=== PATIENT | female | born 1945 | race Caucasian/White ===

== ENCOUNTER 2017-02-12 16:29 | Inpatient (IN) | payer MEDICARE ==
[2017-02-12 16:58] LABS: #Basophils 0.1 thou/uL (0.0-0.2); #Eosinphils 0.2 thou/uL (0.0-0.7); #Monocytes 0.7 thou/uL (0.11-0.59); #Neutrophils 7.8 thou/uL (1.40-6.50); %Basophils 0.5 % (0.0-1.0); %Eosinophils 1.6 % (0.0-10.0); %Lymphocytes 25.6 % (21.0-51.0); %Monocytes 5.9 % (0.0-10.0); Hematocrit 41.5 % (36.0-47.0); Mean Platelet Volume 7.4 fL (7.4-10.4); Red Blood Cell (RBC) Count 4.32 mill/uL (4.20-5.40); White Blood Cell (WBC) Count 11.7 thou/uL (4.8-10.8)
--- NOTE | 2017-02-12 17:02 | RAD ---
SINGLE VIEW OF CHEST: Date: 02/12/17 COMPARISON: 10/29/16. HISTORY: Cardiac palpitations and chest pain. FINDINGS: Single view of the chest shows a normal sized cardiomediastinal silhouette. There is no evidence of consolidation, mass, or pleural effusion. The bones are unremarkable. IMPRESSION: No evidence of acute cardiopulmonary disease. POS: [facility]
[2017-02-12 17:19] LABS: ALT (SGPT) 8 U/L (8-55); AST (SGOT) 11 U/L (5-34); Alkaline Phosphatase 113 U/L (40-150); Anion Gap 12 mmol/L (10-20); BUN (Urea Nitrogen) 13 mg/dL (9.8-20.1); Bilirubin, Total Less than 0.2 mg/dL (0.2-1.2); CK (CPK) 21 U/L (29-168); Calc. Creatinine Clearance 0 mL/min (70-130); Calcium 9.4 mg/dL (7.8-10.44); Carbon Dioxide 29 mmol/L (23-31); Chloride 98 mmol/L (98-107); Estimated GFR-MDRD 64; Globulin 3.3 g/dL (2.4-3.5); Lipase 21 U/L (8-78); Protein, Total 6.8 g/dL (6.0-8.3)
[2017-02-12 18:15] LABS: Troponin I 0.017 ng/mL (< 0.028)
[2017-02-12] MEDS ORDERED: Metoprolol Tartrate 5 MG/5 ML VIAL ONE ×2 (18:29)
[2017-02-12 18:35] LABS: Digoxin Less than 0.15 ng/mL (0.8-2.0)
[2017-02-12] MEDS ORDERED: cefTRIAXone\\ROCEPHIN 1 GM VIAL ONE (20:10)
[2017-02-12] MEDS ORDERED: Digoxin 0.25 MG TAB ONE (20:10)
[2017-02-12 21:25] LABS: Troponin I 0.049 ng/mL (< 0.028)
[2017-02-12 22:03] LABS: Glucose, Urine (Dipstick) 500 mg/dL (Negative); Nitrite Negative (Negative); Protein, Urine (Dipstick) Negative (Neg-Trace)
[2017-02-12 22:04] LABS: Bilirubin Negative (Negative); Blood, Urine Negative (Negative); Ketone, Urine Negative (Negative); Urobilinogen 0.2 mg/dL (0.2-1.0)
[2017-02-12] MEDS ORDERED: Diltiazem HCl 125 MG, Admixture Fee 1 EACH in Sodium Chloride 0.9% 100 ML SLOW IVP PRN (22:25)
[2017-02-13] MEDS ORDERED: Naloxone HCl 0.4 mg/ml Vial IVP PRN ×2 (00:14)
[2017-02-13] MEDS ORDERED: diphenhydrAMINE HCl 50 MG/ML 1 ML VIAL IVP PRN (00:14)
[2017-02-13] MEDS ORDERED: Promethazine HCl 25 MG/ML VIAL IM PRN (00:14)
[2017-02-13] MEDS ORDERED: Lactated Ringer's 500 ML IV PRN (00:14)
[2017-02-13] MEDS ORDERED: ePHEDrine/0.9% NaCl/PF SYRINGE 50 mg/10 ml SLOW IVP PRN (00:14)
[2017-02-13] MEDS ORDERED: Acetaminophen 325 MG TAB PO PRN (00:14)
[2017-02-13] MEDS ORDERED: Ondansetron HCl/PF 4 MG/2 ML Vial IVP PRN ×2 (00:14→01:13)
[2017-02-13] MEDS ORDERED: Eucerin (Mineral Oil/Petrolatum,White) 30 gm Jar TOP PRN ×2 (00:14→01:16)
[2017-02-13] MEDS ORDERED: Communication Order-Pharmacy FS SCH (00:15)
[2017-02-13] MEDS ORDERED: Fentanyl 4mcg/Marcaine 0.1% Cassette 100 ML EPIDURAL SCH (00:15)
[2017-02-13 00:33] VITALS: BMI 32.9
[2017-02-13] MEDS ORDERED: Senokot 8.6 MG TAB PO PRN (01:13)
[2017-02-13] MEDS ORDERED: Milk Of Magnesia 30 ML UDCUP PO PRN (01:13)
[2017-02-13] MEDS ORDERED: Nitroglycerin 0.4 MG TAB (25 Tab Bottle) PO PRN (01:13)
[2017-02-13] MEDS ORDERED: Ondansetron ODT 4 MG TAB PO PRN (01:13)
[2017-02-13] MEDS ORDERED: Carvedilol 6.25 MG TAB PO SCH (01:15)
[2017-02-13] MEDS ORDERED: Labetalol HCl 100 MG/20 ML VIAL SLOW IVP PRN (01:16)
[2017-02-13] MEDS ORDERED: Polyethylene Glycol 3350 17 GM Packet PO PRN (01:16)
[2017-02-13] MEDS ORDERED: Cepastat Lozenges 1 LOZ PO PRN (01:16)
[2017-02-13] MEDS ORDERED: Diabetic Tussin 200 MG/10 ML UDCUP PO PRN (01:16)
[2017-02-13] MEDS ORDERED: Loratadine 10 MG TAB PO PRN (01:16)
[2017-02-13] MEDS ORDERED: PROVENTIL INHALER 6.7 G (200 INHALATIONS) INH PRN (01:29)
[2017-02-13 01:45] LABS: Troponin I 0.068 ng/mL (< 0.028)
--- NOTE | 2017-02-13 02:11 | HP ---
DATE OF ADMISSION: 02/12/2017 Please note the patient was seen and examined on 02/12/2017. CODE STATUS: FULL CODE. SURROGATE DECISION-MAKER: Patient makes her own decisions with the help of her family. CHIEF COMPLAINT: Chest discomfort and palpitations that started this afternoon. HISTORY OF PRESENT ILLNESS: The patient is a 71-year-old female with paroxysmal atrial fibrillation , COPD, and chronic respiratory failure on home oxygen, presented to the emergency room with sudden onset of chest discomfort and palpitations that started this afternoon while she was at home. She f elt fine around 10:30 a.m. when she woke up. Later on, she started feeling pounding in her chest al brandon with chest discomfort. For this reason, she called EMS. The chest discomfort was constant with out any radiation. No aggravating or relieving factor reported. Patient is compliant with all of h er medications including Xarelto. She has been on flecainide in the past that was discontinued ese ier this year. Patient had cardiac catheterization last year that showed stable coronary artery disease without any flow limiting lesions. Echocardiogram last year showed normal left ventricular ejection fraction o f 55%-60% with mild mitral regurgitation. PAST MEDICAL HISTORY: 1. Paroxysmal atrial fibrillation on anticoagulation. Patient had an ablation at [place] for atrial fibrillation. 2. Coronary artery disease with last cardiac catheterization in 08/2015. 3. Chronic obstructive pulmonary disease followed by Dr. Moran. 4. Chronic diastolic heart failure. 5. Chronic anticoagulation with Xarelto every morning. 6. Hypertension. 7. Dyslipidemia. 8. History of lung cancer status post left lobectomy. 9. Chronic respiratory failure on home oxygen. 10. Degenerative joint disease. 11. Chronic low back pain. 12. Obesity. 13. Diabetes mellitus, type 2. PAST SURGICAL HISTORY: 1. Left lobectomy for lung cancer. 2. Appendectomy. 3. Cholecystectomy. 4. Hysterectomy. 5. Tonsillectomy. 6. Cardiac catheterization. 7. Ablation for atrial arrhythmia earlier this year. ALLERGIES: Patient denies any drug allergies. HOME MEDICATIONS: Patient does not remember all of her home medications. She, however, took her Co reg as well as Xarelto today morning. She is also on some nebulizer treatments. FAMILY HISTORY: Positive for heart disease. Mother with colon cancer. SOCIAL HISTORY: She currently lives at home. Her recently . She denies any history of tobacco, alcohol, or drug use. She is a former smoker. REVIEW OF SYSTEMS: The following complete review of systems was negative, unless otherwise mentione d in the HPI or below: Constitutional: Weight loss or gain, ability to conduct usual activities. Skin: Rash, itching. Eyes: Double vision, pain. ENT/Mouth: Nose bleeding, neck stiffness, pain, tenderness. Cardiovascular: Palpitations, dyspnea on exertion, orthopnea. Respiratory: Shortness of breath, wheezing, cough, hemoptysis, fever or night sweats. Gastrointestinal: Poor appetite, abdominal pain, heartburn, nausea, vomiting, constipation, or diar bobby. Genitourinary: Urgency, frequency, dysuria, nocturia. Musculoskeletal: Pain, swelling. Neurologic/Psychiatric: Anxiety, depression. Allergy/Immunologic: Skin rash, bleeding tendency. PHYSICAL EXAMINATION: VITAL SIGNS: In the emergency room showed temperature 97.9, respirations of 28, pulse rate of 153, blood pressure of 104/56 with O2 saturation 97% on 2 liters nasal cannula. GENERAL: A 71-year-old female in no apparent distress. HEENT: Head atraumatic, normocephalic, sclerae are anicteric. Moist mucous membranes. No oral les ion. NECK: Supple, no JVD appreciated. No carotid bruit. HEART: S1, S2 present. Regular rate and rhythm. Patient has converted to normal rhythm at this ti me. LUNGS: Clear to auscultation bilaterally. No wheezing, rales or rhonchi. ABDOMEN: Soft, obese, bowel sounds present. EXTREMITIES: No edema or calf tenderness. NEUROLOGIC: Grossly nonfocal, moves all four extremities. PSYCHIATRY: Alert, awake, oriented x3. SKIN: Warm and dry. LYMPH NODES: No palpable lymph nodes in the neck. PERIPHERAL VASCULAR: Radial pulses palpable bilaterally. MUSCULOSKELETAL: No joint swelling or tenderness. LABORATORY FINDINGS: Digoxin less than 0.115. Troponin of 0.049, BUN 13, creatinine 0.87. WBC was 11.7 with hemoglobin 13.4. EVENTS IN THE EMERGENCY ROOM: The patient received 1 gram of IV ceftriaxone, 0.5 mg digoxin, 10 mg IV Lopressor push with 1 liter IV fluids. The Cardizem drip was ordered as well. EKG by my review showed atrial fibrillation with rapid ventricular response. Chest x-ray by my review was negative for infiltrate. IMPRESSION: 1. Atrial fibrillation with rapid ventricular response. The patient has converted to sinus rhythm. We will resume her home medications once confirmed. Cardiology, Dr. Nixon will be consulted to o ptimize her home medications. We will continue anticoagulation with Xarelto every morning. 2. Indeterminate troponins, probably secondary to demand ischemia. We will repeat troponin after 3 hours. 3. Chronic respiratory failure on home oxygen. 4. Chronic obstructive pulmonary disease. We will resume home nebulizer treatments. 5. Hypothyroidism. We will resume levothyroxine once dose confirmed. 6. Hypertension. We will resume home medications once dose confirmed. 7. Chronic diastolic heart failure, appears to be compensated. 8. Dyslipidemia. 9. Obesity with a BMI at 32.9. 10. History of paroxysmal atrial fibrillation on anticoagulation. 11. History of lung cancer, status post lobectomy. 12. Coronary artery disease with last cardiac catheterization in 08/2015. 13. Chronic kidney disease stage 2. 14. Diabetes mellitus type 2. We will start her on insulin sliding scale. DISPOSITION: Probably in 1-2 days based on Cardiology input. Plan of care was discussed with the patient. She stated understanding.
[2017-02-13 02:43] LABS: Magnesium 2.4 mg/dL (1.6-2.6)
[2017-02-13] MEDS: Levothyroxine Sodium 25 MCG TAB PO SCH (05:13)
[2017-02-13] MEDS: Carvedilol 6.25 MG TAB PO SCH ×2 (08:47→17:10)
[2017-02-13] MEDS: Famotidine 20 MG TAB PO SCH ×2 (08:47→21:06)
[2017-02-13] MEDS: Lisinopril 20 MG TAB PO SCH ×2 (08:47→21:06)
[2017-02-13] MEDS: Cyclobenzaprine 10 MG TAB PO SCH ×2 (08:48→21:04)
[2017-02-13] MEDS: sulfaSALAzine 500 MG TAB PO SCH ×2 (08:48→21:06)
[2017-02-13] MEDS: Furosemide 80 MG TAB PO SCH ×2 (08:50→14:41)
[2017-02-13] MEDS: Docusate 100 MG CAP PO SCH ×2 (08:50→21:06)
[2017-02-13] MEDS: Rivaroxaban 10 MG TAB PO SCH (08:50)
[2017-02-13] MEDS ORDERED: BUDESONIDE INH SCH (09:00)
[2017-02-13] MEDS: Primidone 250 MG TAB PO SCH ×3 (10:14→21:04)
--- NOTE | 2017-02-13 12:48 | PDOC.PN ---
- Subjective Encounter Start Date: 02/13/17 Encounter Start Time: 12:47 Patient seen and examined. No new complaints. No overnight events - Objective Resuscitation Status: Resuscitation Status FULL:Full Resuscitation MAR Reviewed: Yes Vital Signs & Weight: Vital Signs (12 hours) Temp Pulse Resp BP BP Pulse Ox 02/13/17 10:35 64 16 98 02/13/17 08:47 147/67 H 02/13/17 08:30 98.3 F 63 18 147/67 H 97 02/13/17 06:46 98 02/13/17 06:44 68 16 98 02/13/17 04:00 98.2 F 66 18 135/60 99 02/13/17 02:03 143/62 H Weight Weight 186 lb Result Diagrams: 02/12/17 16:48 02/12/17 16:48 Additional Labs: Accuchecks 02/13/17 02/13/17 11:36 05:38 POC Glucose 269 H 156 H Phys Exam - Physical Examination Constitutional: NAD HEENT: PERRLA Neck: no JVD Respiratory: no rales Cardiovascular: RRR, no significant murmur Gastrointestinal: non-tender Musculoskeletal: pulses present Neurological: normal sensation Psychiatric: A&O x 3 Dx/Plan (1) Atrial fibrillation with RVR Code(s): I48.91 - UNSPECIFIED ATRIAL FIBRILLATION Status: Acute Comment: converted to NSR (2) NSTEMI (non-ST elevated myocardial infarction) Code(s): I21.4 - NON-ST ELEVATION (NSTEMI) MYOCARDIAL INFARCTION Status: Acute Comment: demand ischemia (3) COPD (chronic obstructive pulmonary disease) Status: Chronic (4) Chronic diastolic (congestive) heart failure Code(s): I50.32 - CHRONIC DIASTOLIC (CONGESTIVE) HEART FAILURE Status: Chronic (5) Chronic respiratory failure with hypoxia Code(s): J96.11 - CHRONIC RESPIRATORY FAILURE WITH HYPOXIA Status: Chronic (6) Coronary artery disease Code(s): I25.10 - ATHSCL HEART DISEASE OF [place] CORONARY ARTERY W/O ANG PCTRS Status: Chronic (7) Diabetes type 2, controlled Code(s): E11.9 - TYPE 2 DIABETES MELLITUS WITHOUT COMPLICATIONS Status: Chronic (8) Dyslipidemia Code(s): E78.5 - HYPERLIPIDEMIA, UNSPECIFIED Status: Chronic (9) H/O: lung cancer Code(s): Z85.118 - PERSONAL HISTORY OF MALIGNANT NEOPLASM OF BRONCHUS AND LUNG Status: Chronic Comment: S/P left lobectomy (10) Hypertension Code(s): I10 - ESSENTIAL (PRIMARY) HYPERTENSION Status: Chronic (11) Hypothyroidism Code(s): E03.9 - HYPOTHYROIDISM, UNSPECIFIED Status: Chronic (12) Obesity (BMI 30-39.9) Code(s): E66.9 - OBESITY, UNSPECIFIED Status: Chronic - Plan * .doing better * f/u echo * f/u card plan
--- NOTE | 2017-02-13 13:49 | CON ---
DATE OF CONSULTATION: 02/13/2017 REASON FOR CONSULTATION: Recurrent atrial fibrillation and wide complex tachycardia. HISTORY OF PRESENT ILLNESS: Ms. Radha Salinas is a delightful 71-year-old woman. She has a hi story of diastolic heart failure, COPD and atrial arrhythmias. Earlier this year, she underwent atr ial fibrillation ablation in [place]. She did quite well following that. Previously, she is unable to tolerate flecainide as it cause fluid retention and Multaq had proved to be inadequate. She had been doing well up until yesterday. She has felt her heart racing, called an ambulance and she is back in atrial fibrillation. The patient is resting comfortably now. MEDICATIONS: She is very uncertain about her medicines, will need to go to the office and check sin ce she does not recall them. She does take Xarelto, but is unclear about the other medicines. PAST SURGICAL HISTORY: 1. History of lobectomy for lung cancer. 2. Appendectomy. 3. Cholecystectomy. 4. Previous atrial fibrillation ablation. PAST MEDICAL HISTORY: 1. Atrial fibrillation, paroxysmal. 2. Coronary artery disease mild, nonobstructive. 3. COPD. 4. Diastolic heart failure. 5. Hypertension. 6. Dyslipidemia. REVIEW OF SYSTEMS: Constitutional: No significant weight gain or loss. Vision: No changes. Hear ing: No changes. Pulmonary: No cough or wheezing. She is chronically short of breath, but there has been no change. Cardiac: Positive for palpitations and rapid heart rate. Gastrointestinal: N o nausea, vomiting, diarrhea. Skin: No rashes. Neurologic: No unilateral weakness or numbness. Psychiatric: No unusual depression or anxiety. SOCIAL HISTORY: Lives at home, unfortunately recently . No recent tobacco or al cohol. PHYSICAL EXAMINATION: GENERAL: This is a pleasant elderly woman resting comfortably now. VITAL SIGNS: Blood pressure 147/67, pulse 63, sinus now on the monitor. EYES: Sclerae nonicteric. MOUTH: Mucous membranes moist. NECK: Supple, no lymphadenopathy. LUNGS: Clear, no wheezing, rales or rhonchi. CARDIOVASCULAR: Normal S1, normal S2. There is no murmur, rub or gallop. ABDOMEN: Soft, nontender, no hepatosplenomegaly. EXTREMITIES: Warm, dry, no clubbing or cyanosis. There is 1+ edema. SKIN: Warm and dry. Most recent ejection fraction 55-60%. LABORATORY AND X-RAY FINDINGS: Troponin levels 0.068. ASSESSMENT: 1. Recurrent atrial arrhythmias, atrial fibrillation. 2. She also has a wide complex tachycardia, difficult to tell whether it is atrial flutter with vicente rrancy versus V-tach. I think it is probably atrial arrhythmia with aberrancy. PLAN: 1. We will repeat echocardiogram. 2. Consult electrophysiology. 3. We will clarify home medicines.
[2017-02-13] MEDS: Mometasone Furoate 120 PUFF 220 MCG INH SCH (19:52)
[2017-02-13] MEDS: Acetaminophen 325 MG TAB PO PRN (21:06)
[2017-02-14] MEDS: Levothyroxine Sodium 25 MCG TAB PO SCH (05:25)
[2017-02-14 06:58] LABS: #Basophils 0.1 thou/uL (0.0-0.2); #Eosinphils 0.3 thou/uL (0.0-0.7); #Lymphocytes 2.7 thou/uL (1.20-3.40); #Monocytes 0.6 thou/uL (0.11-0.59); #Neutrophils 4.2 thou/uL (1.40-6.50); %Eosinophils 3.9 % (0.0-10.0); %Lymphocytes 34.6 % (21.0-51.0); %Monocytes 7.1 % (0.0-10.0); Hematocrit 40.7 % (36.0-47.0); Mean Platelet Volume 7.3 fL (7.4-10.4); Red Blood Cell (RBC) Count 4.23 mill/uL (4.20-5.40); White Blood Cell (WBC) Count 7.9 thou/uL (4.8-10.8)
[2017-02-14 07:23] LABS: ALT (SGPT) 7 U/L (8-55); AST (SGOT) 12 U/L (5-34); Alkaline Phosphatase 101 U/L (40-150); Anion Gap 15 mmol/L (10-20); BUN (Urea Nitrogen) 23 mg/dL (9.8-20.1); Bilirubin, Total 0.2 mg/dL (0.2-1.2); Calc. Creatinine Clearance 80 mL/min (70-130); Calcium 9.3 mg/dL (7.8-10.44); Carbon Dioxide 29 mmol/L (23-31); Chloride 97 mmol/L (98-107); Estimated GFR-MDRD 65; Globulin 3.3 g/dL (2.4-3.5); Protein, Total 6.8 g/dL (6.0-8.3)
[2017-02-14] MEDS ORDERED: Metoprolol Tartrate 25 MG TAB PO SCH (09:00)
[2017-02-14] MEDS: Carvedilol 6.25 MG TAB PO SCH ×4 (09:41→17:25)
[2017-02-14] MEDS: sulfaSALAzine 500 MG TAB PO SCH ×2 (09:42→21:15)
[2017-02-14] MEDS: Famotidine 20 MG TAB PO SCH ×2 (09:42→21:16)
[2017-02-14] MEDS: Rivaroxaban 10 MG TAB PO SCH (09:42)
[2017-02-14] MEDS: Cyclobenzaprine 10 MG TAB PO SCH ×2 (09:43→21:15)
[2017-02-14] MEDS: Furosemide 80 MG TAB PO SCH ×2 (09:45→15:25)
[2017-02-14] MEDS: Primidone 250 MG TAB PO SCH ×3 (09:56→21:14)
[2017-02-14] MEDS: Docusate 100 MG CAP PO SCH ×2 (10:10→21:15)
--- NOTE | 2017-02-14 11:47 | PRG ---
DATE OF SERVICE: 02/14/2017 SUBJECTIVE: Ms. Salinas is doing okay. No chest pain or pressure. PHYSICAL EXAMINATION: VITAL SIGNS: Blood pressure 121/58, pulse 78. LUNGS: Clear. CARDIAC: Normal S1 and S2. ABDOMEN: Soft, nontender. EXTREMITIES: No edema. ASSESSMENT: 1. Diastolic congestive heart failure, stable. 2. Chronic obstructive pulmonary disease, stable, but intermittently has wheezing, doing well now. 3. Nonsustained ventricular tachycardia. 4. Paroxysmal atrial fibrillation. PLAN: Dr. De Luna recommended beta blockers following change from carvedilol to Bystolic. She probabl y needs some help getting this medicines, it is expensive. We will try to get it cleared for the in [facility] and gave her some samples, I do not think she can take a higher dose of a nonselecti ve beta wade due to her lungs. Dr. De Luna plans to putting an implantable loop recorder.
--- NOTE | 2017-02-14 12:01 | PDOC.PN ---
- Subjective Encounter Start Date: 02/14/17 Encounter Start Time: 12:00 Patient seen and examined. No new complaints. No overnight events - Objective Resuscitation Status: Resuscitation Status FULL:Full Resuscitation MAR Reviewed: Yes Vital Signs & Weight: Vital Signs (12 hours) Temp Pulse Resp BP BP Pulse Ox 02/14/17 10:04 77 16 96 02/14/17 08:25 97.4 F L 78 18 121/58 L 97 02/14/17 08:00 97.4 F L 77 16 99 02/14/17 06:45 96 02/14/17 06:43 62 16 96 02/14/17 04:00 98.2 F 62 18 112/58 L 99 Weight Weight 184 lb 4 oz I&O: 02/13/17 02/14/17 02/15/17 06:59 06:59 06:59 Intake Total 1180 Output Total 3700 Balance -2520 Result Diagrams: 02/14/17 06:49 02/14/17 06:49 Additional Labs: Accuchecks 02/13/17 02/13/17 02/13/17 20:37 16:51 11:36 POC Glucose 241 H 177 H 269 H Phys Exam - Physical Examination Constitutional: NAD HEENT: moist MMs Neck: no JVD Respiratory: no rhonchi Cardiovascular: irregular Gastrointestinal: non-tender Musculoskeletal: pulses present Neurological: normal sensation Psychiatric: A&O x 3 Dx/Plan (1) Atrial fibrillation with RVR Code(s): I48.91 - UNSPECIFIED ATRIAL FIBRILLATION Status: Acute Comment: converted to NSR (2) NSTEMI (non-ST elevated myocardial infarction) Code(s): I21.4 - NON-ST ELEVATION (NSTEMI) MYOCARDIAL INFARCTION Status: Acute Comment: demand ischemia (3) COPD (chronic obstructive pulmonary disease) Status: Chronic (4) Chronic diastolic (congestive) heart failure Code(s): I50.32 - CHRONIC DIASTOLIC (CONGESTIVE) HEART FAILURE Status: Chronic (5) Chronic respiratory failure with hypoxia Code(s): J96.11 - CHRONIC RESPIRATORY FAILURE WITH HYPOXIA Status: Chronic (6) Coronary artery disease Code(s): I25.10 - ATHSCL HEART DISEASE OF [place] CORONARY ARTERY W/O ANG PCTRS Status: Chronic (7) Diabetes type 2, controlled Code(s): E11.9 - TYPE 2 DIABETES MELLITUS WITHOUT COMPLICATIONS Status: Chronic (8) Dyslipidemia Code(s): E78.5 - HYPERLIPIDEMIA, UNSPECIFIED Status: Chronic (9) H/O: lung cancer Code(s): Z85.118 - PERSONAL HISTORY OF MALIGNANT NEOPLASM OF BRONCHUS AND LUNG Status: Chronic Comment: S/P left lobectomy (10) Hypertension Code(s): I10 - ESSENTIAL (PRIMARY) HYPERTENSION Status: Chronic (11) Hypothyroidism Code(s): E03.9 - HYPOTHYROIDISM, UNSPECIFIED Status: Chronic (12) Obesity (BMI 30-39.9) Code(s): E66.9 - OBESITY, UNSPECIFIED Status: Chronic (13) NSVT (nonsustained ventricular tachycardia) Code(s): I47.2 - VENTRICULAR TACHYCARDIA Status: Acute (14) Diastolic CHF Code(s): I50.30 - UNSPECIFIED DIASTOLIC (CONGESTIVE) HEART FAILURE Status: Acute - Plan * . for loop recorder today f/u card plan
[2017-02-14] MEDS ORDERED: Lidocaine 1% w/Epinephrine 1:200K 30 ML VIAL ONE (14:45)
[2017-02-14] MEDS: Lisinopril 20 MG TAB PO SCH (15:24)
[2017-02-14] MEDS: Mometasone Furoate 120 PUFF 220 MCG INH SCH (18:54)
[2017-02-14] MEDS ORDERED: HYDROcodone/Acetaminophen 10/325 mg Tablet PO PRN (19:08)
[2017-02-14] MEDS ORDERED: Diltiazem HCl 125 MG, Admixture Fee 1 EACH in Sodium Chloride 0.9% 100 ML SLOW IVP SCH (19:30)
--- NOTE | 2017-02-14 19:54 | OP ---
DATE OF SERVICE: 02/14/2017 This is a loop recorder implant report. REASON FOR PROCEDURE: Ms. Salinas is a 71-year-old female who presented with both atrial fibrillat ion, recurrent and also had nonsustained wide complex tachycardia run on telemetry. She is here for loop recorder implant for prolonged monitoring. PROCEDURE: The precordial area was prepped, draped and anesthetized using subcutaneous lidocaine. An incision was made over the 4th intercostal space and using the Acheive CCA Linq device, loop record er was implanted. The wound was closed with Dermabond. PLAN: Continue routine monitoring.
[2017-02-14] MEDS ORDERED: Digoxin 0.5 MG/2 ML AMP SLOW IVP SCH (21:00)
[2017-02-14] MEDS: Nebivolol HCl 5 MG TAB PO SCH (21:15)
[2017-02-15] MEDS: Levothyroxine Sodium 25 MCG TAB PO SCH (05:06)
--- NOTE | 2017-02-15 06:10 | CON ---
DATE OF CONSULTATION: 02/14/2017 REFERRING PHYSICIAN: Dr. Nixon. I am seeing Ms. Salinas at our [facility] telemetry floor as an electrophysiology analytical consultant. Her problems are: 1. Recurrent atrial arrhythmias. A. Status post pulmonary venous isolation procedure in 08/15/2016, Dr. Cosby. B. Recurrent episodes of atrial fibrillation noted, prompting admission yesterday. 2. While on telemetry, nonsustained wide complex arrhythmia on, possibly ventricular tachycardia. 3. History of congestive heart failure with preserved left ventricular function. 4. History of mild nonobstructive coronary artery disease. 5. History of pulmonary disease. A. Prior history of lobectomy for lung cancer. B. Advanced chronic obstructive pulmonary disease. 6. Coronary risk factors. A. Hypertension. B. Dyslipidemia. ALLERGIES: None noted. MEDICATIONS PRIOR TO ADMISSION: Included furosemide, sulfasalazine, levothyroxine, lisinopril, primidone, rosuvastatin, budesonide, ipratropium, aspirin, albuterol, nystatin, rivaroxaban, hydralazine, , cyclobenzaprine, carvedilol and pantoprazole. SUBJECTIVE: Ms. Salinas is here due to recurrent palpitations. She had noticed sudden onset of these palpitations while she was at home. The chest tightness sensation was severe and she called the EMS. There were some chest discomforts, which were constant, without radiation, did not notice any aggravating or relieving factors. No other symptoms are noted. No PND or orthopnea noted. No bleeding issues will start taking Xarelto. REVIEW OF SYSTEMS: The rest of 12-point review of systems is unremarkable. PAST MEDICAL HISTORY: As above, has history of degenerative joint disease, chronic low back pain, chronic respiratory failure on home oxygen, obesity and type 2 diabetes. PAST SURGICAL HISTORY: Also includes left lobectomy as noted above for lung cancer, appendectomy, cholecystectomy, hysterectomy, tonsillectomy, heart catheterization and ablation procedures. SOCIAL HISTORY: Patient is recently . this year. Denies smoking, EtOH or drug use. She is a prior smoker. FAMILY HISTORY: Significant for coronary artery disease. Mother had colon cancer. OBJECTIVE DATA: VITAL SIGNS: Blood pressure 147/67, heart rate 103 and respirations 18. Patient is afebrile. GENERAL: This is an alert and oriented woman in no apparent distress. NECK: Supple. Jugular veins are not distended. CHEST: Coarse without crackles. CARDIOVASCULAR: Heart sounds are regular to rate and rhythm. No murmur or gallop. ABDOMEN: Benign. Bowel sounds are positive. EXTREMITIES: Lower extremities without edema, clubbing or cyanosis. DATABASE: The EKG is reviewed. EKG from 4:47 p.m. on 02/12/2017, reveals atrial fibrillation with variable AV conduction at 144 beats per minute. Subsequent EKG on 02/12/2017, at 8:06 p.m. reveals sinus rhythm with normal AV conduction. Telemetry strips revealed continued sinus rhythm throughout her stay on the floor, but there is also a development of slow wide complex tachycardia, which is right bundle inferior axis and morphology, which is at a rate of 136 beats per minute (ventricular beat with VA conduction). I suspect this is true ventricular tachycardia. LABORATORY DATA: White count 7.9, hemoglobin 12.9 and platelet count is 242. Sodium 137, potassium 4, BUN 23 and creatinine 0.86. Digoxin level less than 0.15. ASSESSMENT AND PLAN: Ms. Salinas is a pleasant 71-year-old woman with prior history of lung cancer, lobectomy, chronic obstructive pulmonary disease on home O2 use, diastolic heart failure paroxysmal atrial fibrillation, which are highly symptomatic requiring a pulmonary venous isolation procedure in July. She has done well ever since, but now had a documented recurrencewhich eventually spontaneously converted back to sinus rhythm. Also, while on telemetry floor, she developed a wide complex arrhythmia. I suspect it is a true ventricular tachycardia, but short in duration. This might have been also minimally symptomatic. Hence, she has a history of recent cardiac workup and normal left ventricular ejection fraction, her prognosis regarding wide complex tachyarrhythmia is benign. The recurrence of atrial arrhythmia is likely to be not related to this ventricular arrhythmia at all. No evidence of ischemia is seen on the workup so far, although her cardiac enzymes are borderline elevated at 0.049 and 0.068. At this point, my plan would be to add beta-wade therapy to her regimen. Hence for her history of chronic obstructive pulmonary disease, we will try Bystolic, hopefully better tolerated. Also, she might benefit from more prolonged observation and has the ventricular tachycardia and implantable loop recorder is planned. Risks and benefits of the procedure are detailed and she understands and will need to proceed. If she has frequent recurrence ofatrial or ventricular arrhythmias, ablation could be a good option. Her antiarrhythmic medication choices are somewhat limited. Hence, history of lung disease,Multaq could be considered, but I would like to avoid amiodarone unless if absolutely necessary. We will schedule her for loop recorder implant and start Bystolic. Thank you again for allowing me to participate in the care of this patient. HAILE
[2017-02-15] MEDS ORDERED: Lisinopril 20 MG TAB PO SCH (09:00)
[2017-02-15] MEDS: Primidone 250 MG TAB PO SCH ×3 (09:39→20:32)
[2017-02-15] MEDS: Rivaroxaban 10 MG TAB PO SCH (09:40)
[2017-02-15] MEDS: Cyclobenzaprine 10 MG TAB PO SCH ×2 (09:40→20:29)
[2017-02-15] MEDS: sulfaSALAzine 500 MG TAB PO SCH ×2 (09:40→20:32)
[2017-02-15] MEDS: Famotidine 20 MG TAB PO SCH ×2 (09:40→20:30)
--- NOTE | 2017-02-15 09:47 | PRG ---
DATE OF SERVICE: 02/15/2017 Ms. Salinas had some recurrent atrial fibrillation last night as well as atrial flutter. She had t o be placed back on intravenous Cardizem. When she came out of the flutter she had a pause. PHYSICAL EXAMINATION: VITAL SIGNS: Her blood pressure is 99/49, pulse 58 regular. LUNGS: Clear. CARDIAC: Normal S1, normal S2. ABDOMEN: Soft and nontender. ASSESSMENT: 1. Recurrent atrial fibrillation and atrial flutter. 2. Nonsustained V-tach. PLAN: 1. She is on Bystolic. . 2. One dose of digoxin was given. 3. Suspect she may need repeat ablation.
--- NOTE | 2017-02-15 15:01 | PDOC.PN ---
- Subjective Encounter Start Date: 02/15/17 Encounter Start Time: 14:57 Patient seen and examined. No new complaints. No overnight events. Off Cardizem drip - converted to SR today morning after a pause. - Objective Resuscitation Status: Resuscitation Status FULL:Full Resuscitation MAR Reviewed: Yes Vital Signs & Weight: Vital Signs (12 hours) Temp Pulse Resp BP Pulse Ox 02/15/17 11:25 97.4 F L 71 18 103/45 L 96 02/15/17 10:24 73 16 97 02/15/17 09:27 98.4 F 68 17 105/54 L 95 02/15/17 08:00 97.4 F L 71 18 95 02/15/17 07:08 97.6 F 58 L 18 99/49 L 94 L 02/15/17 07:02 59 L 16 97 02/15/17 04:00 97.8 F 87 18 119/56 L 96 Weight Weight 182 lb 9 oz I&O: 02/14/17 02/15/17 02/16/17 06:59 06:59 06:59 Intake Total 1180 500 Output Total 3700 Balance -2520 500 Result Diagrams: 02/14/17 06:49 02/14/17 06:49 Additional Labs: Accuchecks 02/15/17 02/15/17 02/14/17 11:24 05:38 20:04 POC Glucose 227 H 176 H 212 H 02/14/17 02/14/17 02/14/17 18:49 11:45 06:03 POC Glucose 146 H 216 H 168 H EKG Reviewed by me: Yes (Tele SR) Phys Exam - Physical Examination Constitutional: NAD Respiratory: no wheezing, no rhonchi Cardiovascular: RRR, no rub Gastrointestinal: soft, non-tender, positive bowel sounds Musculoskeletal: no edema Neurological: non-focal, moves all 4 limbs Psychiatric: A&O x 3 Dx/Plan - Plan IMPRESSION: 1. Atrial fibrillation with rapid ventricular response - in sinus rhythm. 2. Indeterminate troponins, probably secondary to demand ischemia. 3. Chronic respiratory failure on home oxygen. 4. Chronic obstructive pulmonary disease. on nebulizer treatments. 5. Hypothyroidism. on levothyroxine 6. Hypertension. Pt is hypotensive 7. Chronic diastolic heart failure, appears to be compensated. 8. Dyslipidemia. 9. Obesity with a BMI at 32.9. 10. History of paroxysmal atrial fibrillation on anticoagulation. 11. History of lung cancer, status post lobectomy. 12. Coronary artery disease with last cardiac catheterization in 08/2015. 13. Chronic kidney disease stage 2. 14. Diabetes mellitus type 2. -on insulin sliding scale. PLAN: * Change Lasix to 40 mg daily due to low BP - Pt in negative balance * Change Hydralazine to 25 mg TID due to low BP * Cardiology/EP following * Coreg changed to Bystolic * Cont other home meds as below * Will arrange for [facility] Review of Systems - Review of Systems Constitutional: negative: Fever, Chills, Sweats, Weakness, Malaise, Other Respiratory: negative: Cough, Dry, Shortness of Breath, Hemoptysis, SOB with Excertion, Pleuritic Pain, Sputum, Wheezing Cardiovascular: negative: Chest Pain, Palpitations, Orthopnea, Paroxysmal Noc. Dyspnea, Edema, Light Headedness, Other Gastrointestinal: negative: Nausea, Vomiting, Abdominal Pain, Diarrhea, Constipation, Melena, Hematochezia, Other Neurological: negative: Weakness, Numbness, Incoordination, Change in Speech, Confusion, Seizures, Other - Medications/Allergies Allergies/Adverse Reactions: Allergies Allergy/AdvReac Type Severity Reaction Status Date / Time No Known Allergies Allergy Verified 06/25/16 13:14 Medications: Current Medications Acetaminophen (Tylenol) 650 mg PO Q4H PRN PRN Reason: Headache/Fever or Pain Last Admin: 02/13/17 21:06 Dose: 650 mg Hydrocodone Bitart/Acetaminophen ([place] 10/325) 1 tab PO Q6H PRN PRN Reason: Moderate Pain (4-6) Last Admin: 02/14/17 19:42 Dose: 1 tab Albuterol Sulfate (Proventil Hfa) 2 puff INH Q6HR PRN PRN Reason: SOB &/or Wheezing Albuterol/Ipratropium (Duoneb) 3 ml NEB [id number] PRN PRN Reason: SOB &/or Wheezing Albuterol/Ipratropium (Duoneb) 3 ml NEB [id number] SCH Last Admin: 02/15/17 14:02 Dose: Not Given Aspirin (Aspirin Chewable) 81 mg PO DAILY [facility] Last Admin: 02/15/17 09:40 Dose: 81 mg Cyclobenzaprine HCl (Flexeril) 5 mg PO BID [facility] Last Admin: 02/15/17 09:40 Dose: 5 mg Docusate Sodium (Colace) 100 mg PO BID [facility] Last Admin: 02/14/17 21:15 Dose: 100 mg Famotidine (Pepcid) 20 mg PO BID [facility] Last Admin: 02/15/17 09:40 Dose: 20 mg Furosemide (Lasix) 40 mg PO DAILY[facility] Guaifenesin (Robitussin Sf) 200 mg PO Q4H PRN PRN Reason: Cough Hydralazine HCl (Apresoline) 10 mg SLOW IVP Q4H PRN PRN Reason: SBP Greater Than 180 Hydralazine HCl (Apresoline) 25 mg PO TID [facility] Labetalol HCl (Normodyne) 10 mg SLOW IVP Q4H PRN PRN Reason: Systolic BP > 180 Levothyroxine Sodium (Synthroid) 25 mcg PO 0600 [facility] Last Admin: 02/15/17 05:06 Dose: 25 mcg Lisinopril (Zestril) 20 mg PO BID [facility] Loratadine (Claritin) 10 mg PO DAILYPRN PRN PRN Reason: Sinus Symptoms Magnesium Hydroxide (Milk Of Magnesium) 30 ml PO DAILYPRN PRN PRN Reason: Constipation Mineral Oil/White Petrolatum (Eucerin Cream) 0 gm TOP BIDPRN PRN PRN Reason: Dry Skin Mometasone Furoate (Asmanex Twisthaler) 1 puff INH 1830 [facility] Last Admin: 02/14/17 18:54 Dose: 1 puff Nebivolol (Bystolic) 5 mg PO BID [facility] Last Admin: 02/14/17 21:15 Dose: 5 mg Nitroglycerin (Nitrostat) 0.4 mg PO Q5MIN PRN PRN Reason: Chest Pain Ondansetron HCl (Zofran Odt) 4 mg PO Q6H PRN PRN Reason: Nausea/Vomiting Ondansetron HCl (Zofran) 4 mg IVP Q6H PRN PRN Reason: Nausea/Vomiting Polyethylene Glycol (Miralax) 17 gm PO DAILY PRN PRN Reason: Constipation Primidone (Mysoline) 250 mg PO TID [facility] Last Admin: 02/15/17 09:39 Dose: 250 mg Rivaroxaban (Xarelto) 20 mg PO DAILY [facility] Last Admin: 02/15/17 09:40 Dose: 20 mg Rosuvastatin Calcium (Crestor) 40 mg PO DAILY [facility] Last Admin: 02/15/17 09:39 Dose: 40 mg Senna (Senokot) 2 tab PO HSPRN PRN PRN Reason: Constipation Sodium Chloride (Flush - Normal Saline) 10 ml IVF Q12HR [facility] Last Admin: 02/14/17 21:16 Dose: Not Given Sodium Chloride (Flush - Normal Saline) 10 ml IVF PRN PRN PRN Reason: Saline Flush Last Admin: 02/14/17 19:44 Dose: 10 ml Sulfasalazine (Azulfidine) 1,000 mg PO BID [facility] Last Admin: 02/15/17 09:40 Dose: 1,000 mg Throat Lozenges (Cepastat Lozenges) 1 jose de jesus PO Q2H PRN PRN Reason: Sore Throat
[2017-02-15] MEDS: Docusate 100 MG CAP PO SCH ×2 (15:07→20:30)
[2017-02-15] MEDS: Nebivolol HCl 5 MG TAB PO SCH ×2 (15:07→20:31)
[2017-02-15] MEDS: Furosemide 80 MG TAB PO SCH (15:33)
[2017-02-15] MEDS: Dronedarone HCl 400 MG TAB PO SCH (17:15)
--- NOTE | 2017-02-15 18:19 | PRG ---
DATE OF SERVICE: 02/15/2017 SUBJECTIVE: Ms. Salinas is doing fair, had palpitations overnight. She has recurrent atrial fibri llation/flutter both. Currently, doing better, had some dizziness this morning. OBJECTIVE DATA: VITAL SIGNS: Blood pressure is 103/45, heart rate 71, respirations 18, temperature 97.4 degrees Fah renheit. GENERAL: Alert and oriented woman, in no apparent distress. NECK: Supple. Jugular veins not distended. CHEST: Coarse without crackles. CARDIOVASCULAR: Heart sounds are regular to rate and rhythm. No murmur or gallop. ABDOMEN: Benign. Loop recorder insertion site is healing well. DATABASE: Telemetry strips revealing episodes of atrial fibrillation, but also organized into a 2:1 flutter at times. ASSESSMENT AND PLAN: 1. Ms. Salinas is a pleasant 71-year-old woman with a history of paroxysmal atrial arrhythmias. S he is doing very well after her initial ablation in July, but recurrent atrial fibrillation/atypica l flutter episodes noted bringing her admission. Also, she had a nonsustained runs of wide complex tachyarrhythmia, which has not recurred. This might have represented ventricular tachycardia. Juliane muniz, in view of her normal LVEF and recent negative ischemic workup, we agreed to continue beta -wade overnight. Hence recurrent atrial fibrillation/flutter episodes are seen, I think it might be reasonable to consider an antiarrhythmic agent. We will attempt Multaq, monitor for fluid overl oad or CHF recurrences. 2. She has significant pulmonary disease. Continue home oxygen. At this point, I refrain from us ing amiodarone. 3. She likely could benefit from repeat ablation procedure and she is agreeable.
[2017-02-15] MEDS: Mometasone Furoate 120 PUFF 220 MCG INH SCH (18:37)
[2017-02-15] MEDS: Lisinopril 20 MG TAB PO SCH (20:30)
[2017-02-16] MEDS: Levothyroxine Sodium 25 MCG TAB PO SCH (05:22)
[2017-02-16 05:55] LABS: Hematocrit 42.1 % (36.0-47.0)
[2017-02-16] MEDS ORDERED: Furosemide 40 MG TAB PO SCH (07:30)
[2017-02-16] MEDS ORDERED: Nebivolol HCl 5 MG TAB PO SCH ×2 (09:00)
[2017-02-16] MEDS: Cyclobenzaprine 10 MG TAB PO SCH (09:01)
[2017-02-16] MEDS: Rivaroxaban 10 MG TAB PO SCH (09:02)
[2017-02-16] MEDS: Lisinopril 20 MG TAB PO SCH (09:02)
[2017-02-16] MEDS: sulfaSALAzine 500 MG TAB PO SCH (09:03)
[2017-02-16] MEDS: Famotidine 20 MG TAB PO SCH (09:03)
[2017-02-16] MEDS: Docusate 100 MG CAP PO SCH (09:03)
[2017-02-16] MEDS: Dronedarone HCl 400 MG TAB PO SCH (09:03)
[2017-02-16] MEDS: Furosemide 40 MG TAB PO SCH ×2 (09:03→14:19)
[2017-02-16] MEDS: Primidone 250 MG TAB PO SCH ×2 (09:04→14:19)
--- NOTE | 2017-02-16 09:06 | PRG ---
DATE OF SERVICE: 02/16/2017 SUBJECTIVE: Ms. Salinas is doing well today. She did not have any arrhythmias last night, feels m uch better. Her breathing is improved. She is not having chest pain. PHYSICAL EXAMINATION: VITAL SIGNS: Blood pressure 145/67, pulse 60, it is regular, it is sinus on the monitor. LUNGS: Clear. CARDIAC: Normal S1 and S2. ASSESSMENT: 1. Diastolic congestive heart failure, appears stable. 2. Atrial fibrillation, no recurrence overnight. 3. Atrial flutter no recurrence overnight. 4. Ventricular tachycardia, no recurrence overnight. 5. Hypertension. PLAN: 1. She is on the Bystolic 10 mg a day. 2. Furosemide, resume home dose of 40 mg twice a day. 3. Lisinopril 20 mg twice daily. 4. Multaq 400 mg twice daily. 5. Rivaroxaban 20 mg daily. Hopefully the patient will be able to go home this afternoon. Dr. De Luna is arranging for outpatient ablation to be done on the atrial arrhythmias. Potentially the ventricular arrhythmia could be abla margarito as well. She has a right bundle branch block pattern, during these V-tach with left axis deviat ion. An implantable loop recorder is also in place. The patient does not tolerate the atrial fibri llation when she goes into it, she felt much better after she got the ablation, maintained sinus rhy thm. She did not tolerate flecainide in the past, it worsened her diastolic heart failure. She can not tolerate high dose beta blockers due to lung disease.
[2017-02-16 11:59] VITALS: TEMP 97.7
--- NOTE | 2017-02-16 12:13 | DIS ---
DATE OF ADMISSION: 02/12/2017 DATE OF DISCHARGE: 02/16/2017 DISCHARGE DISPOSITION: Home. FOLLOWUP: 1. Follow up with primary care physician, Dr. Chery in 1 week. 2. Follow up with Cardiology, Dr. Nixon in 2 weeks. 3. Follow up with Electrophysiology, Dr. De Luna in 1 week. The patient was seen and examined on the day of discharge. Denies any new complaints, no chest pain , shortness of breath, palpitations. DISCHARGE MEDICATIONS: 1. Xarelto 20 mg daily. 2. Albuterol inhaler as needed. 3. Aspirin 81 mg daily. 4. Pulmicort 1 puff inhalation b.i.d. 5. Flexeril 5 mg b.i.d. 6. Multaq 400 mg b.i.d. (new medication). 7. Jardiance 25 mg daily. 8. Lasix 80 mg b.i.d. 9. Atrovent 2 puffs inhalation 4 times daily. 10. Levothyroxine 25 mcg daily. 11. Lisinopril 20 mg b.i.d. 12. Bystolic 10 mg daily (new medication) 13. Nystatin as needed. 14. Protonix 40 mg daily. 15. Primidone 250 mg 3 times daily. 16. Crestor 40 mg daily. 17. Sulfasalazine 1000 mg b.i.d. Please note that hydralazine was discontinued due to blood pressure running on the lower side. INPATIENT CONSULTANTS: 1. Cardiology, Dr. Nixon 2. Electrophysiology, Dr. De Luna. BRIEF HOSPITAL COURSE: The patient is a 71-year-old female with paroxysmal atrial fibrillation, [employer] D, chronic diastolic heart failure and chronic respiratory failure, on home oxygen, presented to the hospital with chest discomfort and palpitations. Please refer to the history and physical dated for further details. The patient was admitted to the hospital with a diagnosis of atrial f ibrillation with rapid ventricular response. She spontaneously converted to sinus rhythm. She was seen by Cardiology, Dr. Nixon and Dr. De Luna. Telemetry monitoring showed ventricular tachycardia th at was nonsustained. An implantable loop recorder has been placed by Electrophysiology. Carvedilol has been changed to Bystolic. She has been started on Multaq. She will follow up with Electrophys iology as outpatient for probable ablation. She has been cleared by Cardiology for discharge. FINAL DIAGNOSES: 1. Atrial fibrillation with rapid ventricular response. 2. Nonsustained ventricular tachycardia. 3. Status post implantable loop recorder placed this admission. 4. Chronic diastolic heart failure. 5. Atrial flutter. 6. Hypertension. 7. Chronic obstructive pulmonary disease. 8. Chronic respiratory failure, on home oxygen. 9. Hypothyroidism. 10. Dyslipidemia. 11. Obesity with a BMI 32.9. 12. History of paroxysmal atrial fibrillation on anticoagulation. 13. History of lung cancer, status post lobectomy. 14. Coronary artery disease with last cardiac catheterization in 08/2015. 15. Chronic kidney disease stage 2. 16. Diabetes mellitus type 2. 17. Indeterminate troponins, probably secondary to demand ischemia. Plan of care was discussed with the patient. She stated understanding. Total time coordinating the discharge of this patient was 33 minutes.
[2017-02-16 13:46] VITALS: BP 111/56
[2017-02-16] MEDS: Acetaminophen 325 MG TAB PO PRN (14:20)
--- NOTE | 2017-02-16 14:57 | EKG ---
Test Reason : Blood Pressure : / mmHG Vent. Rate : 144 BPM Atrial Rate : 150 BPM P-R Int : 000 ms QRS Dur : 090 ms QT Int : 276 ms P-R-T Axes : 000 008 069 degrees QTc Int : 427 ms Atrial fibrillation with rapid ventricular response Nonspecific ST abnormality Abnormal ECG Confirmed by МАРИНА NAVARRO D.O. ([id number]), commissioning editor RAVEN DAVISON ([id number]) on 02/16/2017 2:57:09 PM Referred By: Confirmed By:МАРИНА NAVARRO D.O.
--- NOTE | 2017-02-16 14:58 | EKG ---
Test Reason : Blood Pressure : / mmHG Vent. Rate : 069 BPM Atrial Rate : 069 BPM P-R Int : 138 ms QRS Dur : 084 ms QT Int : 396 ms P-R-T Axes : 053 028 049 degrees QTc Int : 424 ms Normal sinus rhythm Normal ECG Confirmed by МАРИНА NAVARRO D.O. ([id number]), assignment editor RAVEN DAVISON ([id number]) on 02/16/2017 2:58:14 PM Referred By: Confirmed By:МАРИНА NAVARRO D.O.
== END 2017-02-16 17:04 | disposition home or self-care (01) | DRG 260 ==
LOC: ERS 16:29 → 2NO 20:10
PROVIDERS: ADMIT Internal Medicine; ATTEND Internal Medicine
PROC: 0JH602Z Insertion of Monitoring Device into Chest Subcutaneous Tissue and Fascia, Open Approach (ICD-10-PCS; principal; 2017-02-14)
DX: I48.0 Paroxysmal atrial fibrillation (principal); I21.4 Non-ST elevation (NSTEMI) myocardial infarction; I47.2 Ventricular tachycardia; J96.11 Chronic respiratory failure with hypoxia; I24.8 Other forms of acute ischemic heart disease; I13.0 Hypertensive heart and chronic kidney disease with heart failure and stage 1 through stage 4 chronic kidney disease, or unspecified chronic kidney disease; I50.32 Chronic diastolic (congestive) heart failure; Z79.01 Long term (current) use of anticoagulants; I48.4 Atypical atrial flutter; E11.22 Type 2 diabetes mellitus with diabetic chronic kidney disease; N18.2 Chronic kidney disease, stage 2 (mild); Z79.84 Long term (current) use of oral hypoglycemic drugs; J44.9 Chronic obstructive pulmonary disease, unspecified; Z87.891 Personal history of nicotine dependence; Z99.81 Dependence on supplemental oxygen; I25.10 Atherosclerotic heart disease of native coronary artery without angina pectoris; E78.5 Hyperlipidemia, unspecified; Z85.118 Personal history of other malignant neoplasm of bronchus and lung; E03.9 Hypothyroidism, unspecified; E66.9 Obesity, unspecified; Z68.32 Body mass index [BMI] 32.0-32.9, adult
CPT/HCPCS: 33282; 36415; 36416; 71010; 80053; 80162; 81003; 82553; 82565; 83690; 83735; 84100; 84484; 85014; 85018; 85025; 85049; 93005; 93306; 94640; 94760; 96361; 96365; 96375; A4216; C1764; J0696; J1160; J7050; J7620

== ENCOUNTER 2017-03-15 11:04 | Outpatient (CLI) | payer MEDICARE ==
--- NOTE | 2017-03-15 11:32 | RAD ---
PA AND LATERAL CHEST: History: Dyspnea. Comparison: 04-18-16 FINDINGS: Heart size is slightly enlarged. There are some chronic appearing changes in the left base. No focal infiltrative process. IMPRESSION: Stable chest. POS: OFF
== END 2017-03-15 11:05 | disposition home or self-care (01) ==
LOC: RAD 11:04
PROVIDERS: ATTEND Internal Medicine Pulmonary Disease
DX: R06.00 Dyspnea, unspecified (principal)
CPT/HCPCS: 71020

== ENCOUNTER 2017-04-19 05:51 | Observation (INO) | payer MEDICARE ==
[2017-04-19] MEDS ORDERED: Heparin 1000 UNIT/NS 500ML(OR) 500 ML ONE ×2 (06:46→06:48)
[2017-04-19 07:11] LABS: #Eosinphils 0.2 thou/uL (0.0-0.7); #Lymphocytes 2.4 thou/uL (1.20-3.40); #Monocytes 0.5 thou/uL (0.11-0.59); #Neutrophils 4.9 thou/uL (1.40-6.50); %Basophils 0.3 % (0.0-1.0); %Eosinophils 2.1 % (0.0-10.0); %Lymphocytes 30.4 % (21.0-51.0); %Monocytes 6.1 % (0.0-10.0); Hematocrit 39.9 % (36.0-47.0); Mean Platelet Volume 7.4 fL (7.4-10.4); Red Blood Cell (RBC) Count 4.11 mill/uL (4.20-5.40)
[2017-04-19 07:14] LABS: PTT 35.3 SEC (22.9-36.1); Prothrombin Time 14.5 SEC (12.0-14.7)
[2017-04-19 07:28] LABS: ALT (SGPT) 9 U/L (8-55); AST (SGOT) 13 U/L (5-34); Alkaline Phosphatase 112 U/L (40-150); Anion Gap 10 mmol/L (10-20); BUN (Urea Nitrogen) 14 mg/dL (9.8-20.1); Bilirubin, Total 0.2 mg/dL (0.2-1.2); Calc. Creatinine Clearance 107 mL/min (70-130); Calcium 9.2 mg/dL (7.8-10.44); Carbon Dioxide 28 mmol/L (23-31); Chloride 103 mmol/L (98-107); Estimated GFR-MDRD 86; Globulin 3.2 g/dL (2.4-3.5)
[2017-04-19] MEDS ORDERED: Fentanyl 250 MCG/5 ML VIAL ONE (07:42)
[2017-04-19] MEDS ORDERED: Promethazine HCl 25 MG/ML VIAL ONE (07:42)
[2017-04-19] MEDS ORDERED: Phenylephrine 10 MG/NS 250 ML 250 ML ONE (07:42)
[2017-04-19] MEDS ORDERED: Heparin 10,000 UNITS/1 ML VIAL ONE ×2 (08:49→09:35)
[2017-04-19] MEDS ORDERED: Isoproterenol 0.2 MG/1 ML AMP ONE ×2 (08:49→09:35)
[2017-04-19] MEDS ORDERED: Furosemide 40 MG/4 ML VIAL ONE (09:35)
[2017-04-19] MEDS ORDERED: Protamine Sulfate 50 MG/5 ML VIAL ONE ×2 (09:35→10:07)
[2017-04-19] MEDS ORDERED: Ondansetron HCl/PF 4 MG/2 ML Vial ONE ×2 (10:30→16:44)
[2017-04-19] MEDS ORDERED: hydrALAZINE 20 MG/ML VIAL ONE (10:46)
[2017-04-19] MEDS ORDERED: Albuterol Sulfate 1.25 MG/3 ML NEB ONE (10:52)
[2017-04-19] MEDS ORDERED: Ondansetron HCl/PF 4 MG/2 ML Vial IVP PRN ×2 (10:57→11:47)
[2017-04-19] MEDS ORDERED: Morphine Sulfate 2 MG/ML SYRINGE SLOW IVP PRN (10:57)
[2017-04-19] MEDS ORDERED: Promethazine HCl 25 MG/ML VIAL SLOW IVP PRN (10:57)
[2017-04-19] MEDS ORDERED: Albuterol Sulfate 2.5 mg/3 ml Neb NEB SCH (11:00)
[2017-04-19] MEDS ORDERED: diphenhydrAMINE 25 MG CAP PO PRN (11:47)
[2017-04-19] MEDS ORDERED: Bisacodyl 5 MG TAB PO PRN (11:47)
[2017-04-19] MEDS ORDERED: Silver Sulfadiazine 1% Cream 50 GM JAR TOP PRN (11:47)
[2017-04-19] MEDS ORDERED: Temazepam 15 MG CAP PO PRN (11:47)
[2017-04-19] MEDS ORDERED: Bisacodyl 10 MG SUPP PR PRN (11:47)
[2017-04-19] MEDS ORDERED: Nitroglycerin 0.4 MG TAB (25 Tab Bottle) SL PRN (11:47)
[2017-04-19] MEDS ORDERED: Mag-Al 1200 mg/1200 mg/30 ML UDCUP PO PRN (11:47)
[2017-04-19] MEDS ORDERED: Ipratropium Oral Inhaler (200 INHALATIONS) INH PRN (11:54)
[2017-04-19] MEDS ORDERED: Boudreaux's Butt Paste 16% Oin 30 GM TUBE TOP PRN (11:55)
[2017-04-19] MEDS ORDERED: PROVENTIL INHALER 6.7 G (200 INHALATIONS) INH PRN (11:58)
[2017-04-19] MEDS: traMADol HCl 50 MG TAB PO PRN ×2 (16:20→20:45)
[2017-04-19] MEDS: Furosemide 80 MG TAB PO SCH (16:21)
[2017-04-19] MEDS: Primidone 250 MG TAB PO SCH ×2 (16:32→20:46)
[2017-04-19] MEDS ORDERED: Propofol 200 MG/20 ML VIAL ONE (16:44)
[2017-04-19] MEDS ORDERED: Heparin 10,000 UNITS/ 10 ML VIAL ONE (16:44)
[2017-04-19] MEDS ORDERED: Protamine Sulfate 250 MG/25 ML VIAL ONE (16:44)
[2017-04-19] MEDS ORDERED: Glycopyrrolate 0.2 MG/ML 5 ML SYRINGE ONE (16:44)
[2017-04-19] MEDS ORDERED: Lidocaine 1% PF 5 ML VIAL ONE (16:44)
[2017-04-19 17:16] VITALS: BMI 32.1
[2017-04-19] MEDS: sulfaSALAzine 500 MG TAB PO SCH (20:46)
[2017-04-19] MEDS: Lisinopril 20 MG TAB PO SCH (20:46)
[2017-04-20] MEDS ORDERED: Levothyroxine Sodium 25 MCG TAB PO SCH (06:00)
[2017-04-20] MEDS ORDERED: Budesonide 0.5 MG/2 ML NEB NEB SCH (06:30)
[2017-04-20] MEDS: Furosemide 80 MG TAB PO SCH (06:42)
--- NOTE | 2017-04-20 07:23 | CCLSPC ---
DATE OF PROCEDURE: 04/19/2017 PROCEDURE: 1. Comprehensive EP testing with 3D mapping and ablation of atrial fibrillation. 2. Ablation of atrial flutter. CLINICAL INDICATION: Clinically significant late recurrence of atrial fibrillation following previou s . RIGHT OF WAY AGENT: Tom Cosby M.D. ASA CLASSIFICATION: 3. ANESTHESIA: General endotracheal anesthesia per Anesthesiology. ADDITIONAL CARDIAC MEDICATIONS: Isoproterenol 10 mcg per minute infusion and adenosine 18 mg IV bolu s. Total heparin given 17,000 units. Total protamine given 40 mg. ACUTE COMPLICATIONS: None apparent. TOTAL RADIOFREQUENCY TIME: 10 minutes 49 seconds. TOTAL FLUOROSCOPY TIME: Zero. METHODS: After informed consent was obtained, the patient was taken to the electrophysiology [facility] in the fasting state. Both groins were prepped and draped. Using ultrasound guidance, the right and left femoral veins were accessed, and wires were inserted into the central venous systems, and t he wires were used to place an 11-Emirati sheath in the left groin and an 8-Emirati sheaths in the righ t and left groin. The 8-Emirati sheaths were all replaced by long sheaths for catheter stability. A 3D map was obtained of the right atrium and the coronary sinus using a circular and ablation catheter . A Duo-Decapolar catheter was placed in the left groin, advanced into the coronary sinus. The prox imal end was in the chalo terminalis. An intracardiac echo probe was placed in the left groin, adva nced up to the right atrium and right ventricle for imaging. Heparin was then given, and transseptal catheterization was performed on two occasions. Access to the left atrium was obtained, and 3D map was obtained of the left atrium, esophageal temperature probe was placed in the esophagus, with a sensor catheter for monitoring of catheter temperatures. Ablation was delivered re-isolating the right pulmonary veins and the portion of the posterior wall that had reconnected from the previous ab lation. No other non-venous triggers were seen in the left atrium. The patient did have inducible w hat appeared to be isthmus dependent flutter. The flutter circuit was mapped and ablated with bidire ctional block confirmed. At the conclusion of procedure, catheters were drawn. Heparin was reversed . Sheaths were pulled. Hemostasis was achieved with direct pressure. RESULTS: 1. Baseline intervals, HV interval 48 milliseconds. The patient was in sinus rhythm, NM interval wa s 190 milliseconds prior to the procedure. This did not change following the procedure. 2. Atrial function. Patient was in sinus rhythm during the procedure. A brief example of what appe ared to be typical flutter was induced, but no atrial fibrillation was seen. Both the right upper an d the right lower pulmonary veins and the posterior wall appeared to have been reconnected and were t he likely triggers for the patient's post-ablation recurrence. These were isolated as described in t he method section. 3. Ablation details, a total of 10 minutes 49 minutes of RF were delivered using an open, irrigated Biosense Cao ablation catheter. IMPRESSION: Successful re-isolation of the right veins and the posterior wall for treatment of late recurrence of atypical flutter. RECOMMENDATION: A 23-hour observation. POS: RADHA
[2017-04-20 07:59] VITALS: TEMP 98.1
[2017-04-20] MEDS: sulfaSALAzine 500 MG TAB PO SCH (08:36)
[2017-04-20] MEDS: Lisinopril 20 MG TAB PO SCH (08:37)
[2017-04-20 08:39] VITALS: BP 150/73
[2017-04-20] MEDS: Primidone 250 MG TAB PO SCH (08:43)
[2017-04-20] MEDS ORDERED: Rivaroxaban 10 MG TAB PO SCH (09:00)
[2017-04-20] MEDS ORDERED: Nebivolol HCl 5 MG TAB PO SCH (09:00)
[2017-04-20] MEDS ORDERED: EMPAGLIFLOZIN 25 MG PO SCH (09:00)
--- NOTE | 2017-04-21 08:43 | DIS ---
DATE OF ADMISSION: 04/19/2017 DATE OF DISCHARGE: 04/20/2017 REQUESTING DOCTOR: Dr. Tom Cosby. ADMITTING DIAGNOSES: 1. Paroxysmal atrial fibrillation. A. Status post redo left atrial ablation procedure by Dr. Cosby on 04/19/2017. HOSPITAL COURSE: Ms. Salinas has done well overnight. She had minor headaches and also some coughi ng, which was present prior to the procedure. She is able to lay flat at this point. She has no diz ziness, loss of consciousness, no fever, chills at this time. Her groin sites are free of hematoma. OBJECTIVE: VITAL SIGNS: This morning, blood pressure 150/73, heart rate 100, respirations 12, temperature 98.1 degrees Fahrenheit. GENERAL: Alert, oriented woman in no apparent distress. NECK: Supple. Jugular veins not distended. CHEST: Coarse without crackles. CARDIOVASCULAR: Heart sounds are regular rate and rhythm. No murmur or gallop. ABDOMEN: Benign. Bowel sounds positive. EXTREMITIES: clubbing or cyanosis. LABORATORY DATA: EKG is reviewed revealing sinus rhythm. No atrial fibrillation is noted. ASSESSMENT AND PLAN: Ms. Salinas is a pleasant 71-year-old woman with history of paroxysmal atrial fibrillation requiring Multaq for suppression. She also has advanced pulmonary disease and lobectomy due to lung cancer in the past. She nevertheless is doing well right now post pulmonary venous isol ation/left atrial ablation procedure. She tolerated the procedure well. Minor coughing without any true signs of fluid overload . PLAN: She will be discharged home, continuing her anticoagulation with Xarelto as before. On the ot her hand, we will discontinue Multaq. She was given also prescription for Carafate 1 gram q.6 hours for 2 weeks and Protonix 40 mg daily as well. She has home medication of Lasix, furosemide, which is encouraged to take for the next 3 days and then as needed. She is to see us back in the office in 6 weeks.
== END 2017-04-20 12:13 | disposition home or self-care (01) ==
LOC: CCL 05:51 → 2SW 08:40
PROVIDERS: ADMIT Internal Medicine Cardiovascular Disease; ATTEND Internal Medicine Cardiovascular Disease
DX: I48.0 Paroxysmal atrial fibrillation (principal)
CPT/HCPCS: 76942; 80053; 85025; 85347 ×2; 85610; 85730; 93005 ×2; 93613; 93622; 93623; 93656; 93662; 94640; C1731; C1732 ×3; C1759; C1769; G0378; 93010; J0153; J0360; J1644; J1940; J2001; J2405; J2550; J2704; J2720; J3010; J7611; J7620; J7626

== ENCOUNTER 2017-05-16 23:02 | Emergency (ER) | payer MEDICARE | END 2017-05-17 00:48 | disposition home or self-care (01) | LOC: ERS 23:02 | DX: M25.561 Pain in right knee (principal); M25.562 Pain in left knee; J45.909 Unspecified asthma, uncomplicated; I10 Essential (primary) hypertension; E11.9 Type 2 diabetes mellitus without complications; E78.5 Hyperlipidemia, unspecified; Z87.891 Personal history of nicotine dependence; W18.30XA Fall on same level, unspecified, initial encounter ==

== ENCOUNTER 2017-06-08 06:08 | Emergency (ER) | payer MEDICARE ==
[2017-06-08] MEDS ORDERED: Ondansetron HCl/PF 4 MG/2 ML Vial ONE (06:48)
[2017-06-08 06:53] LABS: #Eosinphils 0.1 thou/uL (0.0-0.7); #Lymphocytes 1.4 thou/uL (1.20-3.40); #Monocytes 0.4 thou/uL (0.11-0.59); %Basophils 0.2 % (0.0-1.0); %Eosinophils 0.7 % (0.0-10.0); %Lymphocytes 10.2 % (21.0-51.0); %Monocytes 3.1 % (0.0-10.0); %Neutrophils 85.9 % (42.0-75.0); Hemoglobin 14.5 g/dL (12.0-16.0); Mean Corpuscular HGB CONC 33.5 g/dL (32.0-36.0); Mean Corpuscular Hemoglobin 32.6 pg (27.0-31.0); Mean Corpuscular Volume 97.2 fl (81.0-99.0); Mean Platelet Volume 7.9 fL (7.4-10.4); Platelet Count 229 thou/uL (130-400); RBC Distribution Width 12.4 % (11.5-14.5); Red Blood Cell (RBC) Count 4.46 mill/uL (4.20-5.40)
[2017-06-08 07:05] LABS: ALT (SGPT) 14 U/L (8-55); AST (SGOT) 17 U/L (5-34); Albumin 4.1 g/dL (3.4-4.8); Alkaline Phosphatase 120 U/L (40-150); Anion Gap 17 mmol/L (10-20); BUN (Urea Nitrogen) 22 mg/dL (9.8-20.1); Bilirubin, Total 0.3 mg/dL (0.2-1.2); CK (CPK) 19 U/L (29-168); Calc. Creatinine Clearance 0 mL/min (70-130); Calcium 9.6 mg/dL (7.8-10.44); Carbon Dioxide 25 mmol/L (23-31); Chloride 102 mmol/L (98-107); Estimated GFR-MDRD 76; Globulin 3.5 g/dL (2.4-3.5); Glucose 196 mg/dL (80-115); Lipase 49 U/L (8-78); Potassium 4.5 mmol/L (3.5-5.1); Protein, Total 7.6 g/dL (6.0-8.3); Sodium 139 mmol/L (136-145)
[2017-06-08 07:10] LABS: CKMB 0.7 ng/mL (0-6.6); Troponin I Less than 0.010 ng/mL (< 0.028)
[2017-06-08 07:12] LABS: INR-International Normal Ratio 1.1; PTT 32.1 SEC (22.9-36.1); Prothrombin Time 14.3 SEC (12.0-14.7)
[2017-06-08 08:12] LABS: Bilirubin Negative (Negative); Blood, Urine Negative (Negative); Clarity CLEAR (Clear); Glucose, Urine (Dipstick) >=1000 mg/dL (Negative); Leukocyte Negative (Negative); Nitrite Negative (Negative); Protein, Urine (Dipstick) 30 mg/dL (Neg-Trace); Specific Gravity, Urine 1.038 (1.002-1.036); Urobilinogen 0.2 mg/dL (0.2-1.0)
[2017-06-08 08:14] LABS: Bacteria/HPF None Seen HPF (None Seen); Hyaline Casts/LPF 0-3 HYALINE CAST LPF (0-3 Hyaline); Pathc Cast-AUWi Flag 0.27 (0-2.49); RBC/HPF 0-3 HPF (0-3); Squamous Epithelial 0-3 HPF (0-3); WBC/HPF 0-3 HPF (0-3)
--- NOTE | 2017-06-30 18:59 | EKG ---
Test Reason : VOMITING Blood Pressure : / mmHG Vent. Rate : 087 BPM Atrial Rate : 087 BPM P-R Int : 142 ms QRS Dur : 084 ms QT Int : 380 ms P-R-T Axes : 053 005 050 degrees QTc Int : 457 ms Normal sinus rhythm Normal ECG Confirmed by EZEQUIEL WADE, SKYLER Parks ([id number]), editor [employer] RAVEN DAVISON ([id number]) on 06/30/2017 6:58:33 PM Referred By: MARYBEL Confirmed By:SKYLER NIEVES MD
== END 2017-06-08 12:52 | disposition home or self-care (01) ==
LOC: ERS 06:08
DX: K52.9 Noninfective gastroenteritis and colitis, unspecified (principal); I25.10 Atherosclerotic heart disease of native coronary artery without angina pectoris; I48.91 Unspecified atrial fibrillation; E11.9 Type 2 diabetes mellitus without complications; J44.9 Chronic obstructive pulmonary disease, unspecified; I10 Essential (primary) hypertension; E78.5 Hyperlipidemia, unspecified; Z87.891 Personal history of nicotine dependence; Z79.01 Long term (current) use of anticoagulants; Z79.899 Other long term (current) drug therapy
CPT/HCPCS: 36415; 51701; 80053; 81003; 81015; 82553; 83690; 83880; 84484; 85025; 85610; 85730; 93005; 96361; 96374; J2405

== ENCOUNTER 2017-06-13 13:09 | Outpatient (CLI) | payer MEDICARE ==
--- NOTE | 2017-06-13 13:52 | RAD ---
CHEST TWO VIEWS: History: Lung cancer. Comparison: None. FINDINGS: Normal cardiac silhouette. Pulmonary vessels and hilum are normal. Right costophrenic angle is clear. Minimal blunting of the left costophrenic angle. Minimal elevation of the lateral left hemidiaphragm . No obvious masses in the left lung base. Parenchymal changes are suspected. No pneumothorax. IMPRESSION: Parenchymal changes in the left lung base are suspected. Better interrogation with CT is recommended. Conversely, comparison with prior radiographs if available. POS: RADHA
== END 2017-06-13 13:10 | disposition home or self-care (01) ==
LOC: RAD 13:09
PROVIDERS: ATTEND Thoracic Surgery (Cardiothoracic Vascular Surgery)
DX: C34.12 Malignant neoplasm of upper lobe, left bronchus or lung (principal); R91.8 Other nonspecific abnormal finding of lung field
CPT/HCPCS: 71046; 80053; 80061; 83036; 84443; 85025

== ENCOUNTER 2017-07-17 17:34 | Observation (INO) | payer MEDICARE ==
[2017-07-17 18:20] LABS: #Eosinphils 0.1 thou/uL (0.0-0.7); #Monocytes 0.5 thou/uL (0.11-0.59); #Neutrophils 4.1 thou/uL (1.40-6.50); %Basophils 0.3 % (0.0-1.0); %Eosinophils 1.5 % (0.0-10.0); %Lymphocytes 38.7 % (21.0-51.0); %Monocytes 6.2 % (0.0-10.0); %Neutrophils 53.3 % (42.0-75.0); Hemoglobin 13.8 g/dL (12.0-16.0); Mean Corpuscular HGB CONC 32.6 g/dL (32.0-36.0); Mean Platelet Volume 7.1 fL (7.4-10.4); Platelet Count 222 thou/uL (130-400); RBC Distribution Width 12.5 % (11.5-14.5); Red Blood Cell (RBC) Count 4.45 mill/uL (4.20-5.40); White Blood Cell (WBC) Count 7.8 thou/uL (4.8-10.8)
[2017-07-17 18:26] LABS: PTT 31.5 SEC (22.9-36.1); Prothrombin Time 13.7 SEC (12.0-14.7)
[2017-07-17 18:47] LABS: ALT (SGPT) 9 U/L (8-55); AST (SGOT) 14 U/L (5-34); Albumin 3.8 g/dL (3.4-4.8); Alkaline Phosphatase 113 U/L (40-150); Anion Gap 11 mmol/L (10-20); BUN (Urea Nitrogen) 20 mg/dL (9.8-20.1); Bilirubin, Total 0.2 mg/dL (0.2-1.2); CK (CPK) 24 U/L (29-168); Calc. Creatinine Clearance 0 mL/min (70-130); Calcium 9.3 mg/dL (7.8-10.44); Carbon Dioxide 28 mmol/L (23-31); Chloride 104 mmol/L (98-107); Estimated GFR-MDRD 68; Globulin 3.1 g/dL (2.4-3.5); Glucose 96 mg/dL (80-115); Lipase 26 U/L (8-78); Potassium 3.9 mmol/L (3.5-5.1); Protein, Total 6.9 g/dL (6.0-8.3); Sodium 139 mmol/L (136-145)
[2017-07-17 18:49] LABS: CKMB 0.5 ng/mL (0-6.6)
--- NOTE | 2017-07-17 19:08 | RAD ---
CHEST ONE VIEW 07/17/17 HISTORY: Chest pain. COMPARISON: 06/13/17. FINDINGS: The cardiac silhouette is magnified and upper limits of normal in size. Patchy bibasilar infiltrates are slightly greater than on the previous exam. Lungs are otherwise hyperinflated. Mediastinum is mid line. IMPRESSION: Mild bibasilar atelectasis is nonspecific. No lobar consolidation or other active cardiopulmonary abn ormalities are demonstrated. POS: [facility]
[2017-07-17] MEDS ORDERED: Labetalol HCl 100 MG/20 ML VIAL ONE (19:50)
[2017-07-17] MEDS ORDERED: hydrALAZINE 20 MG/ML VIAL ONE (19:54)
[2017-07-17 21:53] LABS: Troponin I 0.016 ng/mL (< 0.028)
[2017-07-17] MEDS ORDERED: Ondansetron ODT 4 MG TAB SL PRN (21:55)
[2017-07-17] MEDS ORDERED: Ondansetron HCl/PF 4 MG/2 ML Vial IVP PRN ×2 (21:55→23:07)
[2017-07-17] MEDS ORDERED: Acetaminophen 325 MG TAB PO PRN (21:55)
[2017-07-17 21:58] VITALS: BMI 33.7
[2017-07-17] MEDS ORDERED: cloNIDine 0.1 MG TAB PO PRN (23:07)
[2017-07-17] MEDS ORDERED: PROVENTIL INHALER 6.7 G (200 INHALATIONS) INH PRN (23:07)
[2017-07-17] MEDS ORDERED: Dextrose 5% in Water 1,000 ML IV PRN (23:07)
[2017-07-17] MEDS ORDERED: Ondansetron ODT 4 MG TAB PO PRN (23:07)
[2017-07-17] MEDS ORDERED: Dextrose 50% Abboject 50 ML SYRINGE SLOW IVP PRN (23:07)
[2017-07-17] MEDS ORDERED: Nitroglycerin 0.4 MG TAB (25 Tab Bottle) PO PRN (23:07)
[2017-07-17] MEDS ORDERED: HumaLOG 300 UNITS/3 ML VIAL SC PRN ×2 (23:07)
[2017-07-17] MEDS ORDERED: hydrALAZINE 20 MG/ML VIAL SLOW IVP PRN (23:07)
[2017-07-17] MEDS ORDERED: Famotidine 20 MG TAB PO SCH (23:15)
[2017-07-17] MEDS ORDERED: Primidone 250 MG TAB PO SCH (23:30)
[2017-07-17] MEDS ORDERED: Sucralfate 1 GM TAB PO SCH (23:30)
[2017-07-17] MEDS ORDERED: Lisinopril 20 MG TAB PO SCH (23:30)
[2017-07-17] MEDS: Acetaminophen 500 MG TAB PO PRN (23:42)
[2017-07-18 01:12] LABS: Troponin I 0.021 ng/mL (< 0.028)
--- NOTE | 2017-07-18 05:25 | HP ---
DATE OF ADMISSION: 07/17/2017 PRIMARY CARE PROVIDER: Dr. Melvin Chery. PRIMARY STEAMING MACHINE OPERATOR: Dr. Radha Nixon. PRIMARY ELECTRONIC COILS SUPERVISOR: Dr. Saeed Moran. CHIEF COMPLAINT: Chest pain and shortness of breath. HISTORY OF PRESENT ILLNESS: This is a 71-year-old female who presented to [facility] complaining of chest pain and shortness of breath that began approximately 7:00 a.m . on the date of admission. Patient took nitroglycerin at home approximately 1600 p.m., which resolv ed her symptoms. Patient states she was getting out of bed this morning without specific exertion or change in activity level when she noticed symptoms associated with increased shortness of breath and cough. Patient has noted increased shortness of breath over the last several days and notes this is exacerbated when she smells smoke such as someone burning trash outside or her friends smoking near her. Patient admits to chronic respiratory failure on oxygen supplementation at home as well as hist ory of lung cancer, status post left lobectomy. Patient states she received all vaccinations includi ng influenza and pneumonia vaccination has been followed by Dr. Moran at the Pulmonology clinic. Patricia ent admits to using a bronchodilator therapy 3 times daily, but also states shortness of breath that is chronic. Patient does admit to chronic aspirin and Xarelto for atrial arrhythmia including atrial fibrillation, status post several cardiac ablations, most recently in 04/2017. Patient denies any c hange to her chronic medication regimen, states she has been compliant with follow up. Patient denie d any associated jaw, left arm discomfort, unilateral weakness, visual disturbance, or back pain. Cesar ledesma states she underwent cardiac catheterization in 08/2015 showing diffuse disease with recommenda tions from optimal medical management and no acute intervention. Patient underwent 2D transthoracic echocardiogram in 01/2017 showing a preserved ejection fraction of 60%-65%, diastolic dysfunction and left atrial enlargement. Patient denies any increased lower extremity edema or orthopnea. Patient denies any specific fever, chills, or productive cough. In the emergency room, patient underwent gen eral evaluation including chest imaging showing changes consistent with prior lung surgery and mild b ibasilar atelectasis. EKG shows sinus bradycardia without acute ST-T wave changes. Patient received IV labetalol and hydralazine after patient was noted with blood pressures in the 200s/60s-80s. Patricia ent was referred to the Hospitalist Service for evaluation. PAST MEDICAL HISTORY: 1. Paroxysmal atrial fibrillation on chronic Xarelto, status post cardiac ablation. 2. Coronary artery disease, diffuse, medically managed. 3. Chronic obstructive pulmonary disease. 4. Chronic hypoxic respiratory failure on chronic oxygen supplementation at 2-3 liters per minute by nasal cannula. 5. Chronic diastolic congestive heart failure with preserved ejection fraction of 60%-65%. 6. Chronic anticoagulation with Xarelto. 7. Hypertension. 8. Dyslipidemia. 9. History of lung cancer, status post left lobectomy. 10. Degenerative joint disease. 11. Chronic low back pain. 12. Obesity. 13. Diabetes mellitus, type 2. PAST SURGICAL HISTORY: 1. Status post left lobectomy for lung carcinoma. 2. Status post appendectomy 3. Status post cholecystectomy. 4. Status post hysterectomy. 5. Status post tonsillectomy. 6. Status post cardiac catheterization with diffuse coronary artery disease, medically managed. 7. Status post cardiac ablation for atrial fibrillation. CURRENT MEDICATIONS: Based on previous admissions in late 2017, 1. Albuterol sulfate 2 puffs inhaled q.6 hours p.r.n. 2. Siopbnd4iyefdv aspirin 81 mg 1 tab p.o. daily. 3. Pulmicort 1 puff inhaled b.i.d. 4. Jardiance 25 mg p.o. daily. 5. Lasix 80 mg p.o. b.i.d. 6. Atrovent HFA 2 puffs inhaled q.i.d. p.r.n. 7. Levothyroxine 25 mcg p.o. daily. 8. Lisinopril 20 mg p.o. b.i.d. 9. Bystolic 5 mg p.o. daily. 10. Protonix 40 mg p.o. daily. 11. Mysoline 250 mg p.o. t.i.d. 12. Xarelto 20 mg p.o. daily. 13. Crestor 40 mg 1 tab p.o. daily. 14. Carafate 1 gram p.o. q.i.d. ALLERGIES: No known drug allergies. FAMILY HISTORY: Positive for coronary artery disease. Mother with colon cancer. SOCIAL HISTORY: Patient is . Resides in [place], [place]. No current alcohol, tobacco, or il licit drug use. Formerly used tobacco. REVIEW OF SYSTEMS: The following complete review of systems was otherwise negative, except as stated per HPI: Constitutional: Weight loss or gain, ability to conduct usual activities. Skin: Rash, i tching. Eyes: Double vision, pain. ENT/Mouth: Nose bleeding, neck stiffness, pain, tenderness. C ardiovascular: Palpitations, dyspnea on exertion, orthopnea. Respiratory: Shortness of breath, whe ezing, cough, hemoptysis, fever, or night sweats. Gastrointestinal: Poor appetite, abdominal pain, heartburn, nausea, vomiting, constipation, or diarrhea. Genitourinary: Urgency, frequency, dysuria, nocturia. Musculoskeletal: Pain, swelling. Neurologic/Psychiatric: Anxiety, depression. Allergy /Immunologic: Skin rash, bleeding tendency. PHYSICAL EXAMINATION: VITAL SIGNS: On admission, blood pressure 205/66, pulse 77, respiratory rate 18, temperature 98.3 de grees Fahrenheit, O2 saturation 99% on 2 liters per minute by nasal cannula. GENERAL APPEARANCE: This is a 71-year-old female, alert and oriented x3, pleasant, convers ant, in no acute distress. HEENT: Pupils are equal, round, and reactive to light and accommodation. Extraocular muscles are in tact. No scleral icterus, no conjunctival injection. Nares patent. OP is clear. Teeth in fair rep air. NECK: Supple, no cervical adenopathy, no thyromegaly, no carotid bruits, no JVD appreciated. Cervic al spine full active and passive range of motion. No meningeal signs appreciated. CHEST: Diminished breath sounds in the left lung field, otherwise no crackles or coarse sounds appre ciated. CARDIOVASCULAR: S1, S2, without noted murmur. Heart sounds distant. ABDOMEN: Rounded, soft, nontender, nondistended. Bowel sounds are positive in all four quadrants. T here is no hepatosplenomegaly, no abdominal bruits, no rebound or guarding appreciated. EXTREMITIES: Warm and dry with good turgor. No clubbing, cyanosis, or asymmetric edema appreciated. Pulses palpable distally at the dorsalis pedis, posterior tibial, and popliteal arteries bilaterall y. Capillary refill less than 2 seconds. NEUROLOGIC: Cranial nerves II-XII are grossly intact. No focal or lateralizing signs appreciated. PERTINENT LABORATORY AND X-RAY FINDINGS: Complete metabolic profile within normal limits. Troponin I negative x2. Lipase 26. CBC within normal limits. PT 13.7, INR 1.0, PTT 31.5. Portable chest x- ray dated 07/17/2017 showed bibasilar atelectasis. No lobar consolidation or acute process. EKG trish ed 07/17/2017 by my interpretation shows sinus bradycardia with heart rates in the 50s. Attenuated R waves noted in the precordial leads. Normal axis. No acute ST-T wave changes appreciated. ASSESSMENT AND PLAN: 1. Chest pain. Patient will be placed in observation status on the telemetry unit. We will continu e to trend troponin I. Initially, no current evidence to suggest acute coronary syndrome. Continue aspirin 81 mg p.o. daily. We will proceed with Cardiolite stress testing in the a.m. Patient with k nown coronary artery disease, right with prior recommendations for medical management. Nitroglycerin 0.4 mg sublingually every 5 minutes p.r.n. chest pain. 2. Chronic hypoxemic respiratory failure. We will continue oxygen supplementation at 2-3 liters per minute by nasal cannula. DuoNebs q.4 hours. 3. History of atrial fibrillation, status post cardiac ablation. Stable currently with sinus mechan ism noted on telemetry monitoring. Continue Xarelto 20 mg p.o. daily. 4. Diabetes mellitus, type 2. Insulin sliding scale for reflexive coverage. Accu-Cheks before meal s and at bedtime. Resume home diabetic regimen once confirmed. 5. Hypertension. Labile. We will add clonidine and hydralazine for systolic greater than or equal to 170. Resume home antihypertensives and monitor clinically. 6. Hypothyroidism. Resume levothyroxine once home dosing is confirmed. 7. Prophylaxis. Sequential compression devices while in bed. Pepcid 20 mg p.o. b.i.d. 8. Code status is FULL. Surrogate medical decision maker is the patient's daughter, Kelly Jaffe.
[2017-07-18] MEDS ORDERED: Levothyroxine Sodium 25 MCG TAB PO SCH (06:00)
[2017-07-18 06:07] LABS: Anion Gap 10 mmol/L (10-20); BUN (Urea Nitrogen) 20 mg/dL (9.8-20.1); Calc. Creatinine Clearance 115 mL/min (70-130); Calcium 9.1 mg/dL (7.8-10.44); Carbon Dioxide 25 mmol/L (23-31); Cardiac Risk 4.3 (Less than 4.5); Chloride 107 mmol/L (98-107); Cholesterol 133 mg/dl (< 200 Desired); Estimated GFR-MDRD Greater than 90; Glucose 155 mg/dL (80-115); HDL Cholesterol 31 mg/dL (>60 Neg Risk); LDL Cholesterol, Calculated 77 mg/dL; Potassium 3.6 mmol/L (3.5-5.1); Sodium 138 mmol/L (136-145); Triglycerides 123 mg/dL (Less than 150)
[2017-07-18 06:20] LABS: Band 1 % (5-11); Hemoglobin 12.6 g/dL (12.0-16.0); Lymphocytes 37 % (21-51); MDiff Complete? YES; Mean Corpuscular HGB CONC 32.4 g/dL (32.0-36.0); Mean Corpuscular Hemoglobin 30.8 pg (27.0-31.0); Mean Platelet Volume 7.8 fL (7.4-10.4); Monocytes 3 % (0-10); Neutrophil 57 % (42-75); PLT Morphology Comment Appears Adequate; Platelet Count 195 thou/uL (130-400); RBC Distribution Width 12.6 % (11.5-14.5); RBC Morphology Normal; Reactive Lymphocytes 2 % (0-10); White Blood Cell (WBC) Count 7.7 thou/uL (4.8-10.8)
[2017-07-18 08:19] VITALS: BP 171/74; TEMP 97.6
[2017-07-18] MEDS ORDERED: Rosuvastatin 20 MG TAB PO SCH (09:00)
[2017-07-18] MEDS ORDERED: Lisinopril 20 MG TAB PO SCH (09:00)
[2017-07-18] MEDS ORDERED: Sucralfate 1 GM TAB PO SCH (09:00)
[2017-07-18] MEDS ORDERED: Primidone 250 MG TAB PO SCH (09:00)
[2017-07-18] MEDS ORDERED: Famotidine 20 MG TAB PO SCH (09:00)
[2017-07-18] MEDS ORDERED: Rivaroxaban 10 MG TAB PO SCH (09:00)
[2017-07-18] MEDS ORDERED: Nebivolol HCl 5 MG TAB PO SCH (09:00)
--- NOTE | 2017-07-18 09:58 | PDOC.PN ---
- Subjective Encounter Start Date: 07/18/17 Encounter Start Time: 07:20 -: old records requested/rev Patient seen and examined. No new complaints. No overnight events - Objective Resuscitation Status: Resuscitation Status FULL:Full Resuscitation MAR Reviewed: Yes Vital Signs & Weight: Vital Signs (12 hours) Temp Pulse Resp BP BP Pulse Ox 07/18/17 08:58 97 07/18/17 08:00 97.6 F 60 20 07/18/17 07:38 97.6 F 60 20 171/74 H 94 L 07/18/17 03:00 67 143/67 H 07/18/17 01:34 84 18 95 07/18/17 00:40 182/79 H 07/18/17 00:30 76 18 95 07/17/17 23:35 79 192/77 H 07/17/17 23:34 192/77 H 07/17/17 23:07 98.2 F 82 24 H 94 L 07/17/17 22:25 79 198/84 H Weight Weight 190 lb 8 oz Result Diagrams: 07/18/17 04:36 07/18/17 04:36 Radiology Reviewed by me: Yes EKG Reviewed by me: Yes (nsr) Phys Exam - Physical Examination Constitutional: NAD HEENT: PERRLA, moist MMs, sclera anicteric Neck: no JVD, supple Respiratory: no wheezing, no rales, no rhonchi Cardiovascular: RRR, no significant murmur, no rub Gastrointestinal: soft, non-tender, no distention, positive bowel sounds Musculoskeletal: no edema, pulses present Neurological: non-focal, normal sensation, moves all 4 limbs Lymphatic: no nodes Psychiatric: normal affect, A&O x 3 Skin: no rash, normal turgor Dx/Plan (1) Chest pain Code(s): R07.9 - CHEST PAIN, UNSPECIFIED Status: Acute (2) COPD (chronic obstructive pulmonary disease) Status: Chronic (3) Chronic anticoagulation Code(s): Z79.01 - BODY LINER (CURRENT) USE OF ANTICOAGULANTS Status: Chronic (4) Chronic diastolic (congestive) heart failure Code(s): I50.32 - CHRONIC DIASTOLIC (CONGESTIVE) HEART FAILURE Status: Chronic (5) Chronic respiratory failure with hypoxia Code(s): J96.11 - CHRONIC RESPIRATORY FAILURE WITH HYPOXIA Status: Chronic (6) Coronary artery disease Code(s): I25.10 - ATHSCL HEART DISEASE OF IONE CORONARY ARTERY W/O ANG PCTRS Status: Chronic (7) Diabetes type 2, controlled Code(s): E11.9 - TYPE 2 DIABETES MELLITUS WITHOUT COMPLICATIONS Status: Chronic (8) Dyslipidemia Code(s): E78.5 - HYPERLIPIDEMIA, UNSPECIFIED Status: Chronic (9) H/O: lung cancer Code(s): Z85.118 - PERSONAL HISTORY OF MALIGNANT NEOPLASM OF BRONCHUS AND LUNG Status: Chronic Comment: S/P left lobectomy (10) Hypertension Code(s): I10 - ESSENTIAL (PRIMARY) HYPERTENSION Status: Chronic (11) Hypothyroidism Code(s): E03.9 - HYPOTHYROIDISM, UNSPECIFIED Status: Chronic (12) Obesity (BMI 30-39.9) Code(s): E66.9 - OBESITY, UNSPECIFIED Status: Chronic (13) Paroxysmal atrial fibrillation Code(s): I48.0 - PAROXYSMAL ATRIAL FIBRILLATION Status: Chronic (14) Rheumatoid arthritis Code(s): M06.9 - RHEUMATOID ARTHRITIS, UNSPECIFIED Status: Chronic - Plan cont current plan of care, respiratory therapy * medication reviewed as below * symptomatic treatment * today stress test * if negative, will discharge later today. Review of Systems - Review of Systems ENT: negative: Ear Pain, Ear Discharge, Nose Pain, Nose Discharge, Nose Congestion, Mouth Pain, Mouth Swelling, Throat Pain, Throat Swelling, Other Respiratory: negative: Cough, Dry, Shortness of Breath, Hemoptysis, SOB with Excertion, Pleuritic Pain, Sputum, Wheezing Cardiovascular: negative: chest pain, palpitations, orthopnea, paroxysmal nocturnal dyspnea, edema, light headedness, other Gastrointestinal: negative: Nausea, Vomiting, Abdominal Pain, Diarrhea, Constipation, Melena, Hematochezia, Other Genitourinary: negative: Dysuria, Frequency, Incontinence, Hematuria, Retention , Other Musculoskeletal: negative: Neck Pain, Shoulder Pain, Arm Pain, Back Pain, Hand Pain, Leg Pain, Foot Pain, Other Skin: negative: Rash, Lesions, Suleman, Bruising, Other - Medications/Allergies Allergies/Adverse Reactions: Allergies Allergy/AdvReac Type Severity Reaction Status Date / Time No Known Allergies Allergy Verified 07/17/17 23:21 Medications: Current Medications Acetaminophen (Tylenol) 1,000 mg PO Q6H PRN PRN Reason: Headache/Fever or Mild Pain Last Admin: 07/17/17 23:42 Dose: 1,000 mg Albuterol Sulfate (Proventil Hfa) 2 puff INH Q6H PRN PRN Reason: SOB &/or Wheezing Last Admin: 07/18/17 00:30 Dose: 2 puff Albuterol/Ipratropium (Duoneb) 3 ml NEB [id number] [facility] Last Admin: 07/18/17 09:09 Dose: 3 ml Aspirin (Aspirin Chewable) 81 mg PO DAILY [facility] Last Admin: 07/18/17 09:10 Dose: 81 mg Clonidine (Catapres) 0.1 mg PO Q4H PRN PRN Reason: Systolic BP > 180 Last Admin: 07/17/17 23:35 Dose: 0.1 mg Dextrose/Water (Dextrose 50%) 25 gm SLOW IVP PRN PRN PRN Reason: Hypoglycemia Famotidine (Pepcid) 20 mg PO BID [facility] Last Admin: 07/18/17 09:10 Dose: 20 mg Glucagon (Glucagon) 1 mg IM PRN PRN PRN Reason: Hypoglycemia Hydralazine HCl (Apresoline) 20 mg SLOW IVP Q4H PRN PRN Reason: Systolic BP > 180 Dextrose/Water (D5w) 1,000 mls @ 0 mls/hr IV .Q0M PRN; As Directed PRN Reason: Hypoglycemia Insulin Human Lispro (Humalog) 0 units SC .MILD SLIDING SCALE PRN PRN Reason: Mild Correctional Scale Insulin Human Lispro (Humalog) 0 units SC .BEDTIME SLIDING SC PRN PRN Reason: Bedtime Correctional Scale Levothyroxine Sodium (Synthroid) 25 mcg PO 0600 [facility] Last Admin: 07/18/17 06:27 Dose: 25 mcg Lisinopril (Zestril) 20 mg PO BID [facility] Last Admin: 07/18/17 09:10 Dose: 20 mg Mometasone Furoate (Asmanex Twisthaler) 1 puff INH 1830 [facility] Nebivolol (Bystolic) 5 mg PO DAILY [facility] Last Admin: 07/18/17 09:13 Dose: Not Given Nitroglycerin (Nitrostat) 0.4 mg PO Q5MIN PRN PRN Reason: Chest Pain Ondansetron HCl (Zofran Odt) 4 mg PO Q6H PRN PRN Reason: Nausea/Vomiting Ondansetron HCl (Zofran) 4 mg IVP Q6H PRN PRN Reason: Nausea/Vomiting Primidone (Mysoline) 250 mg PO TID [facility] Rivaroxaban (Xarelto) 20 mg PO DAILY [facility] Last Admin: 07/18/17 09:11 Dose: 20 mg Rosuvastatin Calcium (Crestor) 40 mg PO DAILY [facility] Last Admin: 07/18/17 09:13 Dose: 40 mg Sucralfate (Carafate) 1 gm PO QID [facility] Last Admin: 07/18/17 09:13 Dose: 1 gm
--- NOTE | 2017-07-18 11:14 | DIS ---
DATE OF ADMISSION: 07/17/2017 DATE OF DISCHARGE: 07/18/2017 PRIMARY CARE PHYSICIAN: Dr. Miri Charles. DISCHARGE DISPOSITION: Home. PRIMARY DISCHARGE DIAGNOSIS: Chest pain, ruled out acute coronary syndrome. SECONDARY DISCHARGE DIAGNOSES: Rheumatoid arthritis, paroxysmal atrial fibrillation, obesity with body mass index 33, hypothyroidism, hypertension, history of lung cancer, dyslipidemia, diabetes type 2, coronary artery disease, chronic obstructive pulmonary disease, chronic respiratory failure with hypoxia on home oxygen, chronic diastolic heart failure, chronic anticoagulation therapy. PRIMARY PROCEDURE/OPERATION: None. RADIOLOGICAL INVESTIGATION: Chest x-ray on admission showed bibasilar atelectasis, chronic changes without any acute process. SIGNIFICANT LABORATORY DATA: WBC 7.7, hemoglobin 12.6, and platelet 195. INR 1.0. Sodium 138, potassium 3.6, BUN 20, creatinine 0.62. Cardiac enzymes negative x3. LFT normal, LDL 77, lipase 26. DISCHARGE MEDICATIONS: Proventil HFA 2 puffs q.6 hourly p.r.n., aspirin 81 mg p.o. daily, Pulmicort one inhalation b.i.d., empagliflozin 25 mg p.o. daily, Lasix 80 mg b.i.d., Atrovent HFA 2 puffs q.i.d., Synthroid 25 mcg p.o. daily, lisinopril 20 mg p.o. b.i.d., Bystolic 5 mg p.o. daily, Protonix 40 mg p.o. daily, Mysoline 250 mg p.o. t.i.d., Xarelto 20 mg p.o. daily, Crestor 40 mg p.o. daily, and sulfasalazine 500 mg p.o. b.i.d. CONTRAINDICATIONS: None. CODE STATUS: FULL CODE. INPATIENT CONSULTANTS: None. ALLERGIES: No known drug allergy. DISCHARGE PLAN: Post hospital, patient is instructed to follow up with primary care physician in 1 week. HOSPITAL COURSE: A 71-year-old female who was admitted by Dr. Nhan Dunlap yesterday on 07/17/2017. Please see his H&P for further details. She presented to emergency room with the complaint of chest pain. Her initial EKG was unremarkable. Cardiac enzymes are negative. Routine blood test was also unremarkable. She was observed overnight on telemetry floor without any arrhythmia. The patient underwent a stress test and result is pending. If stress test is negative, then we will consider discharging her home later on today. We will resume all her home medication while in hospital. The patient is seen and examined at bedside today. Please see my progress note from today. Upon discharge, she will continue all her previous medication. Stress test resulted no reversible ischemia. Notified result to patient. HAILE
[2017-07-18] MEDS: Acetaminophen 500 MG TAB PO PRN (13:26)
--- NOTE | 2017-07-18 14:39 | NM ---
STRESS ONLY MYOCARDIAL PERFUSION SCAN: DATE: 07/18/17. COMPARISON: None. HISTORY: History of coronary artery disease, COPD, CHF, and diabetes, evaluate for myocardial diffusion defect . TECHNIQUE: SPECT imaging of the left ventricular myocardium is obtained during stress following the intravenous administration of 27 mCi Technetium 99m labeled sestamibi. FINDINGS: No perfusion defect is seen on stress-only imaging. Left ventricular wall motion appears normal. EDV is 96 mL and ESV is 33 mL with a left ventricular ejection fraction of 65%. IMPRESSION: Unremarkable stress-only myocardial perfusion exam. POS: RADHA
[2017-07-18] MEDS ORDERED: Regadenoson 0.4 MG/5 ML SYRINGE ONE (15:51)
[2017-07-18] MEDS ORDERED: Mometasone Furoate 120 PUFF 220 MCG INH SCH (18:30)
--- NOTE | 2017-07-21 13:42 | EKG ---
Test Reason : Blood Pressure : / mmHG Vent. Rate : 055 BPM Atrial Rate : 055 BPM P-R Int : 144 ms QRS Dur : 084 ms QT Int : 438 ms P-R-T Axes : 025 -14 025 degrees QTc Int : 419 ms Sinus bradycardia Otherwise normal ECG Confirmed by ACE COUGHLIN M.D. ([id number]), senior editor IRENE YUN ([id number]) on 07/21/2017 1:41:51 PM Referred By: Confirmed By:ACE COUGHLIN M.D.
--- NOTE | 2017-07-21 13:42 | EKG ---
Test Reason : Blood Pressure : / mmHG Vent. Rate : 076 BPM Atrial Rate : 076 BPM P-R Int : 150 ms QRS Dur : 082 ms QT Int : 398 ms P-R-T Axes : 046 -26 036 degrees QTc Int : 447 ms Normal sinus rhythm Anterior infarct , age undetermined Abnormal ECG Confirmed by ACE COUGHLNI M.D. ([id number]), copy editor IRENE YUN ([id number] on 07/21/2017 1:41:53 PM Referred By: Confirmed By:ACE COUGHLIN M.D.
== END 2017-07-18 14:44 | disposition home or self-care (01) ==
LOC: ERS 17:34 → 2SW 19:45
PROVIDERS: ADMIT Internal Medicine; ATTEND Internal Medicine
DX: R07.9 Chest pain, unspecified (principal); M06.9 Rheumatoid arthritis, unspecified; I48.0 Paroxysmal atrial fibrillation; E66.9 Obesity, unspecified; E03.9 Hypothyroidism, unspecified; E78.5 Hyperlipidemia, unspecified; E11.9 Type 2 diabetes mellitus without complications; I25.10 Atherosclerotic heart disease of native coronary artery without angina pectoris; J44.9 Chronic obstructive pulmonary disease, unspecified; J96.11 Chronic respiratory failure with hypoxia; I11.0 Hypertensive heart disease with heart failure; I50.32 Chronic diastolic (congestive) heart failure; M54.5 Low back pain; G89.29 Other chronic pain; M19.90 Unspecified osteoarthritis, unspecified site; Z68.33 Body mass index [BMI] 33.0-33.9, adult; Z99.81 Dependence on supplemental oxygen; Z79.01 Long term (current) use of anticoagulants; Z79.82 Long term (current) use of aspirin; Z79.84 Long term (current) use of oral hypoglycemic drugs; Z79.899 Other long term (current) drug therapy; Z90.2 Acquired absence of lung [part of]; Z90.49 Acquired absence of other specified parts of digestive tract; Z90.89 Acquired absence of other organs; Z90.710 Acquired absence of both cervix and uterus; Z98.890 Other specified postprocedural states; Z87.891 Personal history of nicotine dependence; Z85.118 Personal history of other malignant neoplasm of bronchus and lung
CPT/HCPCS: 71045; 78452; 80048; 80053; 80061; 82550; 82553; 83690; 84484 ×3; 85007; 85025; 85027; 85610; 85730; 93005; 93017; 94640 ×3; 94664; 94760 ×3; 96374; 96375; 99285; A9500; G0378; 36415; 36416; J0360; J2785; J7620

== ENCOUNTER 2017-08-02 13:38 | Emergency (ER) | payer MEDICARE ==
[2017-08-02 14:05] LABS: #Basophils 0.1 thou/uL (0.0-0.2); #Eosinphils 0.2 thou/uL (0.0-0.7); #Lymphocytes 2.7 thou/uL (1.20-3.40); #Monocytes 0.6 thou/uL (0.11-0.59); #Neutrophils 4.6 thou/uL (1.40-6.50); %Eosinophils 1.9 % (0.0-10.0); %Lymphocytes 33.5 % (21.0-51.0); %Monocytes 7.5 % (0.0-10.0); %Neutrophils 56.1 % (42.0-75.0); Hemoglobin 13.7 g/dL (12.0-16.0); Mean Corpuscular Hemoglobin 31.5 pg (27.0-31.0); Mean Corpuscular Volume 98.6 fl (81.0-99.0); Mean Platelet Volume 7.6 fL (7.4-10.4); Platelet Count 241 thou/uL (130-400); RBC Distribution Width 12.4 % (11.5-14.5); Red Blood Cell (RBC) Count 4.36 mill/uL (4.20-5.40); White Blood Cell (WBC) Count 8.1 thou/uL (4.8-10.8)
[2017-08-02 14:25] LABS: ALT (SGPT) 21 U/L (8-55); AST (SGOT) 20 U/L (5-34); Albumin 3.8 g/dL (3.4-4.8); Alkaline Phosphatase 123 U/L (40-150); Anion Gap 12 mmol/L (10-20); BUN (Urea Nitrogen) 14 mg/dL (9.8-20.1); Bilirubin, Total 0.2 mg/dL (0.2-1.2); Calc. Creatinine Clearance 0 mL/min (70-130); Calcium 9.5 mg/dL (7.8-10.44); Carbon Dioxide 29 mmol/L (23-31); Chloride 101 mmol/L (98-107); Estimated GFR-MDRD 86; Globulin 3.2 g/dL (2.4-3.5); Glucose 143 mg/dL (80-115); Lipase 17 U/L (8-78); Magnesium 2.1 mg/dL (1.6-2.6); Potassium 3.9 mmol/L (3.5-5.1); Sodium 138 mmol/L (136-145)
[2017-08-02 14:29] LABS: CKMB 0.7 ng/mL (0-6.6); Troponin I Less than 0.010 ng/mL (< 0.028)
--- NOTE | 2017-08-02 14:44 | RAD ---
CHEST 1 VIEW: Date: 08/02/17 HISTORY: 71-year-old female with history of chest pain, which is primarily substernal. COMPARISON: 07/17/17. FINDINGS: There is some rotation to the left. Loop recorder overlies the left chest. Borderline size heart. No confluent pneumonia, overt edema, or pleural effusion. IMPRESSION: Borderline size heart. Left side loop recorder. Stable from prior study. POS: RADHA
[2017-08-02] MEDS ORDERED: predniSONE 20 MG TAB ONE (15:09)
--- NOTE | 2017-08-25 20:41 | EKG ---
Test Reason : Blood Pressure : / mmHG Vent. Rate : 053 BPM Atrial Rate : 053 BPM P-R Int : 138 ms QRS Dur : 082 ms QT Int : 444 ms P-R-T Axes : 049 -17 026 degrees QTc Int : 416 ms Sinus bradycardia Possible Anterior infarct , age undetermined Abnormal ECG Confirmed by FARZANA BARKLEY ([id number]), image editor RAVEN DAVISON ([id number]) on 08/25/2017 8:41:05 PM Referred By: Confirmed By:FARZANA BARKLEY
== END 2017-08-02 16:33 | disposition home or self-care (01) ==
LOC: ERS 13:38
DX: J44.1 Chronic obstructive pulmonary disease with (acute) exacerbation (principal); I25.10 Atherosclerotic heart disease of native coronary artery without angina pectoris; I48.91 Unspecified atrial fibrillation; E11.9 Type 2 diabetes mellitus without complications; E78.5 Hyperlipidemia, unspecified; I10 Essential (primary) hypertension; Z85.118 Personal history of other malignant neoplasm of bronchus and lung; Z87.891 Personal history of nicotine dependence; Z79.01 Long term (current) use of anticoagulants; Z79.82 Long term (current) use of aspirin; Z79.899 Other long term (current) drug therapy; Z79.84 Long term (current) use of oral hypoglycemic drugs
CPT/HCPCS: 36415; 71045; 80053; 82553; 83690; 83735; 83880; 84484; 85025; 93005; 94640; 94760; J7506

== ENCOUNTER 2017-08-13 09:33 | Emergency (ER) | payer MEDICARE ==
[2017-08-13 10:23] LABS: #Basophils 0.1 thou/uL (0.0-0.2); #Eosinphils 0.1 thou/uL (0.0-0.7); #Lymphocytes 2.5 thou/uL (1.20-3.40); #Monocytes 1.2 thou/uL (0.11-0.59); #Neutrophils 12.2 thou/uL (1.40-6.50); %Basophils 0.5 % (0.0-1.0); %Eosinophils 0.4 % (0.0-10.0); %Lymphocytes 15.7 % (21.0-51.0); %Monocytes 7.3 % (0.0-10.0); %Neutrophils 76.1 % (42.0-75.0); Hemoglobin 14.5 g/dL (12.0-16.0); Mean Corpuscular HGB CONC 31.3 g/dL (32.0-36.0); Mean Corpuscular Hemoglobin 30.7 pg (27.0-31.0); Mean Corpuscular Volume 98.1 fl (81.0-99.0); Mean Platelet Volume 7.8 fL (7.4-10.4); Platelet Count 254 thou/uL (130-400); Red Blood Cell (RBC) Count 4.73 mill/uL (4.20-5.40); White Blood Cell (WBC) Count 16.1 thou/uL (4.8-10.8)
[2017-08-13] MEDS ORDERED: methylPREDNISolone Sod Succ/PF 125 MG/2 ML VIAL ONE (10:39)
[2017-08-13 10:46] LABS: ALT (SGPT) 19 U/L (8-55); AST (SGOT) 15 U/L (5-34); Albumin 3.9 g/dL (3.4-4.8); Alkaline Phosphatase 106 U/L (40-150); Anion Gap 14 mmol/L (10-20); BUN (Urea Nitrogen) 19 mg/dL (9.8-20.1); Bilirubin, Total 0.4 mg/dL (0.2-1.2); CK (CPK) 16 U/L (29-168); Calc. Creatinine Clearance 0 mL/min (70-130); Calcium 9.4 mg/dL (7.8-10.44); Carbon Dioxide 28 mmol/L (23-31); Chloride 100 mmol/L (98-107); Estimated GFR-MDRD 79; Globulin 3.1 g/dL (2.4-3.5); Glucose 182 mg/dL (83-110); Potassium 3.9 mmol/L (3.5-5.1); Sodium 138 mmol/L (136-145)
[2017-08-13 10:50] LABS: CKMB 0.3 ng/mL (0-6.6); Troponin I Less than 0.010 ng/mL (< 0.028)
--- NOTE | 2017-08-13 11:03 | RAD ---
PA AND LATERAL VIEW CHEST: INDICATIONS: History of diarrhea and slimy stool since this morning. COMPARISON: AP chest radiograph, dated 08/02/2017 and 06/13/2017. FINDINGS: The chronic lung changes are stable. The loop recorder overlying the left chest wall is stable. Mil d cardiomegaly is similar. No confluent air space opacity is evident. Post surgical change involvin g the region of the left upper lobe is stable. No acute osseous abnormality is evident. IMPRESSION: No acute cardiopulmonary abnormality. POS: RADHA
--- NOTE | 2017-08-25 22:58 | EKG ---
Test Reason : CP Blood Pressure : / mmHG Vent. Rate : 073 BPM Atrial Rate : 073 BPM P-R Int : 134 ms QRS Dur : 086 ms QT Int : 402 ms P-R-T Axes : 068 053 057 degrees QTc Int : 442 ms Normal sinus rhythm Normal ECG Confirmed by RANDEE WADE, NETO ([id number]), associate entertainment editor RAVEN DAVISON ([id number]) on 08/25/2017 10:57:58 PM Referred By: Confirmed By:NETO JEFF MD
== END 2017-08-13 13:43 | disposition home or self-care (01) ==
LOC: ERS 09:33
DX: J44.1 Chronic obstructive pulmonary disease with (acute) exacerbation (principal); I25.10 Atherosclerotic heart disease of native coronary artery without angina pectoris; I48.91 Unspecified atrial fibrillation; E11.9 Type 2 diabetes mellitus without complications; I10 Essential (primary) hypertension; Z85.118 Personal history of other malignant neoplasm of bronchus and lung; Z87.891 Personal history of nicotine dependence; Z79.01 Long term (current) use of anticoagulants; Z79.899 Other long term (current) drug therapy; Z79.82 Long term (current) use of aspirin; Z79.52 Long term (current) use of systemic steroids; Z79.84 Long term (current) use of oral hypoglycemic drugs
CPT/HCPCS: 71045; 80053; 82553; 84484; 85025; 93005; 96374; J2930; J7620

== ENCOUNTER 2017-08-16 02:28 | Inpatient (IN) | payer MEDICARE ==
[2017-08-16] MEDS ORDERED: Ondansetron HCl/PF 4 MG/2 ML Vial IVP PRN (06:15)
[2017-08-16] MEDS ORDERED: Acetaminophen 325 MG TAB PO PRN (06:15)
[2017-08-16] MEDS ORDERED: Albuterol Sulfate 2.5 mg/3 ml Neb NEB PRN (06:15)
[2017-08-16] MEDS ORDERED: Ondansetron ODT 4 MG TAB SL PRN (06:15)
[2017-08-16 06:17] VITALS: BMI 33.5
[2017-08-16] MEDS ORDERED: cefTRIAXone\\ROCEPHIN 1 GM, Syringe 0.4 ML in Sterile Water 9.6 ML SLOW IVP SCH (09:00)
[2017-08-16 09:53] LABS: #Eosinphils 0.1 thou/uL (0.0-0.7); #Lymphocytes 2.5 thou/uL (1.20-3.40); #Neutrophils 12.4 thou/uL (1.40-6.50); %Basophils 0.3 % (0.0-1.0); %Eosinophils 0.7 % (0.0-10.0); %Lymphocytes 15.6 % (21.0-51.0); %Monocytes 6.3 % (0.0-10.0); %Neutrophils 77.2 % (42.0-75.0); Hemoglobin 13.5 g/dL (12.0-16.0); Mean Corpuscular HGB CONC 32.4 g/dL (32.0-36.0); Mean Corpuscular Hemoglobin 31.2 pg (27.0-31.0); Mean Corpuscular Volume 96.3 fl (81.0-99.0); Mean Platelet Volume 7.9 fL (7.4-10.4); Platelet Count 229 thou/uL (130-400); RBC Distribution Width 12.4 % (11.5-14.5); Red Blood Cell (RBC) Count 4.33 mill/uL (4.20-5.40)
[2017-08-16] MEDS ORDERED: Boudreaux's Butt Paste 16% Oin 30 GM TUBE TOP PRN (09:53)
[2017-08-16 10:15] LABS: Anion Gap 15 mmol/L (10-20); BUN (Urea Nitrogen) 15 mg/dL (9.8-20.1); Calc. Creatinine Clearance 97 mL/min (70-130); Calcium 9.5 mg/dL (7.8-10.44); Carbon Dioxide 26 mmol/L (23-31); Chloride 99 mmol/L (98-107); Estimated GFR-MDRD 80; Glucose 125 mg/dL (83-110); Potassium 4.2 mmol/L (3.5-5.1); Sodium 136 mmol/L (136-145)
[2017-08-16] MEDS: Ipratropium Oral Inhaler (200 INHALATIONS) INH SCH ×4 (10:18→19:50)
[2017-08-16] MEDS: Furosemide 80 MG TAB PO SCH (13:12)
--- NOTE | 2017-08-16 13:42 | HP ---
DATE OF ADMISSION: 08/16/2017 CHIEF COMPLAINT: Shortness of breath, nausea, vomiting. HISTORY OF PRESENT ILLNESS: This is a 72-year-old female who went to a local hospital and was found to have worsening shortness of breath. The patient had admitted to a past medical history of having COPD as well. The patient upon time of ER evaluation at the other hospital was found to have a white count of 18.5 and a UA concerning for a UTI. The patient was transferred to the Internal Medicine [facility] admitted to [facility] for COPD exacerbation and UTI. The patient currently states that she h as improvement in her shortness of breath and symptoms of UTI being increased frequency are still pre sent. She states that she currently during the interview would also like to go to the bathroom. The patient otherwise denies any nausea, vomiting, diarrhea, constipation, chest pains, fevers, chills. She states that she has no alleviating or aggravating factors. The patient states that she has had these episodes in the past and they have improved with antibiotics. The patient was seen and examine [facility] family at bedside. All questions answered. ALLERGIES: No known drug allergies. HOME MEDICATIONS: See MAR. PAST MEDICAL HISTORY: Positive for diabetes mellitus type 2, hypertension, obesity, COPD, hyperlipid emia, history of malignancy. Paroxysmal atrial fibrillation. PAST SURGICAL HISTORY: Cholecystectomy, hysterectomy, carpal tunnel surgery, and cardiac ablation. REVIEW OF SYSTEMS: Twelve point review of systems performed. Pertinent positives in the HPI, otherw ise negative. PHYSICAL EXAMINATION: VITAL SIGNS: Blood pressure 149/90, O2 saturation is 97% on 2 liters nasal cannula, respiratory rate of 18, pulse of 80, temperature of 98.1. GENERAL: The patient appears in mild distress, sitting at bedside with feet dangling. HEENT: Normocephalic and atraumatic. PERRLA. Oral cavity moist and pink. NECK: Supple, mobile, tender thyroid. LUNGS: Inspiratory wheezing noted bilateral lower lung rios, slight increase in AP diameter, mild respiratory distress. CARDIOVASCULAR: Irregular rate and rhythm noted. Faint 1/6 systolic ejection murmur noted. S1 and S2. ABDOMEN: Positive bowel sounds, soft, nontender, nondistended. EXTREMITIES: 2+ peripheral pulses trace bilateral lower extremity edema. NEUROLOGIC: Cranial nerves II through XII intact. No loss of motor or sensory function. LABORATORY DATA: WBC count elevated at 16. Otherwise, CBC normal. Basic metabolic panel normal. ASSESSMENT AND PLAN: 1. Urinary tract infection. 2. Paroxysmal atrial fibrillation. 3. Chronic obstructive pulmonary disease exacerbation. 4. Hypertension. 5. History of malignancy. 6. Hyperlipidemia. 7. Hypertension. PLAN: At this point in time, we will admit the patient to the hospital. Continue her home medicatio ns inclusive of steroids as well as anticoagulation for paroxysmal atrial fibrillation. We will star t the patient on antibiotics, Rocephin to be taken IV. Obtain urine cultures and urinalysis, labs in a.m. Diet will be cardiovascular diet and activity as tolerated with assistance. Discharge plans in a.m. if culture negative, the patient's CBC count decreasing and the patient is fe eling well. We will prescribed the patient antibiotic and Medrol Dosepak at home and request that s he follow up with her PCP in 7-10 days. We will adjust the plan depending on lab results in the [facility] ing. Case and plan discussed with the patient at length. She understands and agrees with this plan.
[2017-08-16] MEDS: PROVENTIL INHALER 6.7 G (200 INHALATIONS) INH PRN ×2 (14:02→19:48)
[2017-08-16 14:46] LABS: Bilirubin Negative (Negative); Blood, Urine Moderate (Negative); Clarity CLEAR (Clear); Glucose, Urine (Dipstick) >=1000 mg/dL (Negative); Leukocyte Negative (Negative); Nitrite Negative (Negative); Protein, Urine (Dipstick) 30 mg/dL (Neg-Trace); Specific Gravity, Urine 1.034 (1.002-1.036); Urobilinogen 0.2 mg/dL (0.2-1.0); pH, Urine 5.5 (5.0-9.0)
[2017-08-16 14:47] LABS: Bacteria/HPF None Seen HPF (None Seen); Hyaline Casts/LPF 0-3 HYALINE CAST LPF (0-3 Hyaline); Pathc Cast-AUWi Flag 0.14 (0-2.49); Squamous Epithelial 0-3 HPF (0-3); WBC/HPF 0-3 HPF (0-3); Yeast-AUWi Flag 24.5 (0-25.0)
[2017-08-16] MEDS ORDERED: Dextrose 5% in Water 1,000 ML IV PRN (16:25)
[2017-08-16] MEDS ORDERED: Dextrose 50% Abboject 50 ML SYRINGE SLOW IVP PRN (16:25)
[2017-08-16] MEDS: Primidone 250 MG TAB PO SCH ×2 (16:29→20:44)
[2017-08-16] MEDS: Rivaroxaban 10 MG TAB PO SCH (16:30)
[2017-08-16] MEDS: Mometasone Furoate 120 PUFF 220 MCG INH SCH (19:52)
[2017-08-16] MEDS: Acetaminophen 325 MG TAB PO PRN (20:43)
[2017-08-16] MEDS: Lisinopril 20 MG TAB PO SCH (20:44)
[2017-08-17] MEDS: Furosemide 80 MG TAB PO SCH ×2 (05:05→15:24)
[2017-08-17] MEDS: Levothyroxine Sodium 25 MCG TAB PO SCH (05:05)
[2017-08-17] MEDS: PROVENTIL INHALER 6.7 G (200 INHALATIONS) INH PRN ×2 (05:16→18:46)
[2017-08-17] MEDS: Ipratropium Oral Inhaler (200 INHALATIONS) INH SCH ×4 (07:56→18:49)
[2017-08-17] MEDS: Ondansetron HCl/PF 4 MG/2 ML Vial IVP PRN ×2 (08:30→17:29)
[2017-08-17] MEDS: Lisinopril 20 MG TAB PO SCH ×2 (09:00→20:19)
[2017-08-17] MEDS: Rosuvastatin 20 MG TAB PO SCH (09:00)
--- NOTE | 2017-08-17 09:01 | RAD ---
PORTABLE CHEST 1 VIEW: Date: 08/17/17 Time: 0737 hours HISTORY: COPD. FINDINGS/IMPRESSION: Comparison made with exam of 08/15/17. The heart size is borderline, but stable. Left basilar infiltrate is again seen. The right lung is cl ear. No pneumothoraces or large effusions are seen. POS: DAVID
[2017-08-17 10:11] LABS: #Eosinphils 0.2 thou/uL (0.0-0.7); #Lymphocytes 1.6 thou/uL (1.20-3.40); #Monocytes 0.9 thou/uL (0.11-0.59); #Neutrophils 12.2 thou/uL (1.40-6.50); %Basophils 0.3 % (0.0-1.0); %Eosinophils 1.5 % (0.0-10.0); %Lymphocytes 10.7 % (21.0-51.0); %Monocytes 5.9 % (0.0-10.0); %Neutrophils 81.7 % (42.0-75.0); Hemoglobin 12.7 g/dL (12.0-16.0); Mean Corpuscular HGB CONC 32.9 g/dL (32.0-36.0); Mean Corpuscular Hemoglobin 32.2 pg (27.0-31.0); Mean Corpuscular Volume 97.8 fl (81.0-99.0); Mean Platelet Volume 7.9 fL (7.4-10.4); Platelet Count 233 thou/uL (130-400); RBC Distribution Width 12.5 % (11.5-14.5); Red Blood Cell (RBC) Count 3.94 mill/uL (4.20-5.40); White Blood Cell (WBC) Count 14.9 thou/uL (4.8-10.8)
[2017-08-17 10:24] LABS: Anion Gap 15 mmol/L (10-20); BUN (Urea Nitrogen) 19 mg/dL (9.8-20.1); Calc. Creatinine Clearance 84 mL/min (70-130); Calcium 9.2 mg/dL (7.8-10.44); Carbon Dioxide 31 mmol/L (23-31); Chloride 91 mmol/L (98-107); Estimated GFR-MDRD 68; Glucose 202 mg/dL (83-110); Potassium 3.6 mmol/L (3.5-5.1); Sodium 133 mmol/L (136-145)
[2017-08-17] MEDS: Primidone 250 MG TAB PO SCH ×3 (13:42→20:24)
[2017-08-17] MEDS: predniSONE 20 MG TAB PO SCH (13:42)
[2017-08-17] MEDS: Nebivolol HCl 5 MG TAB PO SCH (13:43)
--- NOTE | 2017-08-17 14:42 | PDOC.PN ---
- Subjective Encounter Start Date: 08/17/17 Encounter Start Time: 14:40 Patient seen and examined, no new issues or complaints, all questions answered, no family at bedside. - Objective Vital Signs & Weight: Vital Signs (12 hours) Temp Pulse Resp BP Pulse Ox 08/17/17 08:00 98.1 F 87 18 138/74 96 08/17/17 05:16 87 20 97 08/17/17 04:02 97.9 F 87 20 136/77 97 I&O: 08/16/17 08/17/17 08/18/17 06:59 06:59 06:59 Intake Total 1040 100 Balance 1040 100 Result Diagrams: 08/17/17 09:58 08/17/17 09:58 Additional Labs: Accuchecks 08/17/17 08/16/17 08/16/17 11:04 20:52 16:41 POC Glucose 175 H 127 H 131 H Phys Exam - Physical Examination Constitutional: NAD HEENT: PERRLA, moist MMs, sclera anicteric Neck: no nodes, no JVD, supple Respiratory: wheezing present Cardiovascular: RRR, no significant murmur, no rub Gastrointestinal: soft, non-tender, no distention Musculoskeletal: pulses present, edema present (trace) Dx/Plan (1) Urinary tract infection Status: Acute (2) COPD (chronic obstructive pulmonary disease) Status: Chronic (3) Hypothyroidism Code(s): E03.9 - HYPOTHYROIDISM, UNSPECIFIED Status: Chronic (4) Obesity (BMI 30-39.9) Code(s): E66.9 - OBESITY, UNSPECIFIED Status: Chronic - Plan * levaquin * cultures pending * patient symptomatically still having some wheezing * continue current plan of care * labs in AM * cxr in AM * case and plan d/w patient at length, she understands and agrees with this plan
[2017-08-17] MEDS: Rivaroxaban 10 MG TAB PO SCH (18:25)
[2017-08-17] MEDS: Mometasone Furoate 120 PUFF 220 MCG INH SCH (18:50)
[2017-08-18 04:58] LABS: #Eosinphils 0.2 thou/uL (0.0-0.7); #Lymphocytes 2.6 thou/uL (1.20-3.40); #Monocytes 0.7 thou/uL (0.11-0.59); #Neutrophils 5.9 thou/uL (1.40-6.50); %Basophils 0.4 % (0.0-1.0); %Eosinophils 2.4 % (0.0-10.0); %Monocytes 6.9 % (0.0-10.0); %Neutrophils 62.4 % (42.0-75.0); Hemoglobin 12.8 g/dL (12.0-16.0); Mean Corpuscular HGB CONC 32.4 g/dL (32.0-36.0); Mean Corpuscular Hemoglobin 31.8 pg (27.0-31.0); Mean Corpuscular Volume 98.1 fl (81.0-99.0); Mean Platelet Volume 8.2 fL (7.4-10.4); Platelet Count 237 thou/uL (130-400); RBC Distribution Width 12.3 % (11.5-14.5); Red Blood Cell (RBC) Count 4.02 mill/uL (4.20-5.40); White Blood Cell (WBC) Count 9.4 thou/uL (4.8-10.8)
[2017-08-18 05:10] LABS: Anion Gap 10 mmol/L (10-20); BUN (Urea Nitrogen) 29 mg/dL (9.8-20.1); Calc. Creatinine Clearance 73 mL/min (70-130); Calcium 9.7 mg/dL (7.8-10.44); Carbon Dioxide 37 mmol/L (23-31); Chloride 92 mmol/L (98-107); Estimated GFR-MDRD 57; Glucose 143 mg/dL (83-110); Potassium 3.7 mmol/L (3.5-5.1); Sodium 135 mmol/L (136-145)
[2017-08-18] MEDS: Levothyroxine Sodium 25 MCG TAB PO SCH (05:50)
[2017-08-18] MEDS: Furosemide 80 MG TAB PO SCH ×2 (06:18→13:11)
[2017-08-18] MEDS: Acetaminophen 325 MG TAB PO PRN ×2 (06:24→19:02)
[2017-08-18] MEDS: Ipratropium Oral Inhaler (200 INHALATIONS) INH SCH ×4 (07:27→19:20)
[2017-08-18] MEDS: Ondansetron HCl/PF 4 MG/2 ML Vial IVP PRN (07:41)
--- NOTE | 2017-08-18 08:35 | RAD ---
CHEST 1 VIEW: HISTORY: Shortness of breath. COMPARISON: Chest radiograph prior day. FINDINGS: Worsening of left layering effusion and lower lobe airspace opacity. Loop recording device is presen t. Right lung relatively clear. No pneumothorax. IMPRESSION: Worsening left lower lobe consolidation and layering effusion concerning for pneumonia. POS: [facility]
[2017-08-18] MEDS: predniSONE 20 MG TAB PO SCH (08:48)
[2017-08-18] MEDS: Primidone 250 MG TAB PO SCH ×3 (08:48→20:36)
[2017-08-18] MEDS: Lisinopril 20 MG TAB PO SCH (08:49)
[2017-08-18] MEDS: Rosuvastatin 20 MG TAB PO SCH (08:49)
[2017-08-18] MEDS: Nebivolol HCl 5 MG TAB PO SCH (08:50)
--- NOTE | 2017-08-18 10:46 | PDOC.PN ---
- Subjective Encounter Start Date: 08/18/17 Encounter Start Time: 10:44 Patient seen and examined, states she still has some mild wheezing but feels she 's almost back to baseline, two daughters at bedside, all questions answered. - Objective Vital Signs & Weight: Vital Signs (12 hours) Temp Pulse Resp BP BP Pulse Ox 08/18/17 08:49 92/59 L 08/18/17 08:00 97.7 F 70 18 115/71 94 L 08/18/17 04:50 97.7 F 89 18 126/77 95 08/18/17 01:19 96 I&O: 08/17/17 08/18/17 08/19/17 06:59 06:59 06:59 Intake Total 1040 950 Balance 1040 950 Result Diagrams: 08/18/17 04:25 08/18/17 04:25 Additional Labs: Accuchecks 08/18/17 08/17/17 08/17/17 05:54 20:30 16:04 POC Glucose 128 H 273 H 225 H 08/17/17 11:04 POC Glucose 175 H Phys Exam - Physical Examination Constitutional: NAD obese HEENT: PERRLA, moist MMs, sclera anicteric Neck: no nodes Respiratory: wheezing present faint Cardiovascular: RRR, no significant murmur, no rub Gastrointestinal: soft, non-tender, no distention Musculoskeletal: pulses present, edema present (trace) Dx/Plan (1) Urinary tract infection Status: Acute (2) COPD (chronic obstructive pulmonary disease) Status: Chronic (3) Hypothyroidism Code(s): E03.9 - HYPOTHYROIDISM, UNSPECIFIED Status: Chronic (4) Obesity (BMI 30-39.9) Code(s): E66.9 - OBESITY, UNSPECIFIED Status: Chronic - Plan * cont abx, patient is on NC at home 11/12 * pulmonary consult per family request * labs in AM * DC plans in AM if patient is clinically improving with medrol dose pack and levaquin and if ok with pulmonary * case and plan d/w patient and both daughters at length, they understand and agree with this plan
[2017-08-18] MEDS: Rivaroxaban 10 MG TAB PO SCH (16:10)
[2017-08-18] MEDS: HumaLOG 300 UNITS/3 ML VIAL SC PRN (16:18)
[2017-08-18 19:07] LABS: BF Color Red; Body Fluid Source THORACENTESIS FLD; Clarity Cloudy/Turbid (Clear); RBC Count-Automated 4090000 /cumm; Tube # EDTA; WBC/NonHematic-Auto 10200 /cumm
[2017-08-18] MEDS: PROVENTIL INHALER 6.7 G (200 INHALATIONS) INH PRN (19:19)
[2017-08-18] MEDS: Mometasone Furoate 120 PUFF 220 MCG INH SCH (19:21)
[2017-08-18 19:32] LABS: BF Segmented Neutrophils 84 %; Cell Count Non Hematic 5 %; Lymphocytes 11 %
[2017-08-18] MEDS ORDERED: Morphine 2 MG/ML SYRINGE SLOW IVP SCH (20:30)
[2017-08-18 20:59] LABS: Hemoglobin 12.7 g/dL (12.0-16.0)
--- NOTE | 2017-08-18 21:10 | OP ---
DATE OF PROCEDURE: 06/20/2017 SERVICE: Pulmonary Medicine. PROCEDURE: Left-sided thoracentesis. CONSENT: Risks and benefits of this procedure were explained to the patient. All questions were answered and alternative options explained. STAFF PHYSICIAN: Roberth Patel M.D. MEDICATIONS USED: Lidocaine 1% without epinephrine, total quantity 10 mL PREOPERATIVE DIAGNOSES: 1. Community-acquired pneumonia. 2. Pleural effusion. POSTPROCEDURE DIAGNOSIS: Community-acquired pneumonia, unlikely pleural effusion. DESCRIPTION OF PROCEDURE: A timeout was performed by the procedure team and patient. The patient was positively identified using name and date of . The procedure site was marked. Vital sign monitoring was accomplished by noninvasive hemodynamic monitoring, pulse oximetry, and telemetry. In the seated position, left posterior hemithorax was examined using ultrasound probe. The diaphragm was identified with a pocket of fluid sitting between the diaphragm and the chest wall. The skin was prepped and draped in sterile fashion and anesthetized with 1% lidocaine without epinephrine. A finder needle was inserted in the expected pleural space with return of blood. I aspirated for roughly 10 cm of blood. That sample was sent for analysis. The procedure was terminated. The pleural drainage catheter was never attempted to be placed. The patient maintained stable vital signs throughout the entire procedure. ESTIMATED BLOOD LOSS: 10 mL DISPOSITION: The pleural space was likely not assessed. The patient will be sent for CT of the chest to see if an effusion is present. [facility]
--- NOTE | 2017-08-18 21:49 | CON ---
DATE OF CONSULTATION: 08/18/2017 SERVICE: Pulmonary Medicine. REASON FOR CONSULTATION: Pneumonia. HISTORY OF PRESENT ILLNESS: The patient is a 72-year-old white female with past medical history significant for history of left lobectomy for adenocarcinoma of the lung. She has been cancer free for several years. She has had no recrudescence in disease processes. Most recently, she had a PET scan, last year. On that PET scan, there is no evidence of a pleural effusion. She has had multiple chest x-rays since demonstrating no pleural effusion. She came into the hospital with infectious symptoms. She was being treated for pneumonia, as well as a COPD exacerbation. She has had a modest improvement in symptoms. That being said, chest x-ray was repeated this morning demonstrated increasing pleural effusion. I was consulted for the pneumonia as well as the effusion. Currently, the patient is denying any chest pain, fevers, chills, nausea or vomiting. She does have intermittent chest pain from time to time. PAST MEDICAL HISTORY: 1. Type 2 diabetes mellitus. 2. Hypertension. 3. Morbid obesity. 4. Chronic obstructive pulmonary disease. 5. Dyslipidemia. 6. History of adenocarcinoma of the lung, status post lobectomy. 7. Paroxysmal atrial fibrillation. PAST SURGICAL HISTORY: 1. Hysterectomy. 2. Cholecystectomy. 3. Carpal tunnel surgery. 4. Cardiac ablation. 5. Left lobectomy. FAMILY HISTORY: Noncontributory. SOCIAL HISTORY: Negative for alcohol, tobacco or illicit drug use currently. She has a remote history of smoking. REVIEW OF SYSTEMS: General, head, ears, eyes, nose, throat, cardiovascular, respiratory, GI, , musculoskeletal, neurologic and skin is negative except as mentioned in the HPI. PHYSICAL EXAMINATION: VITAL SIGNS: Afebrile, pulse 82, respirations 14, saturation 96% on room air. GENERAL: The patient is awake and alert, in no apparent distress. LUNGS: Decent air entry. There is no prolonged expiratory phase, wheezing, rhonchi, or crackles present. HEART: Normal rate, regular. ABDOMEN: Soft, nontender, nondistended. Bowel sounds are positive. MUSCULOSKELETAL: No cyanosis or clubbing. There is no pitting in the bilateral lower extremities. NEUROLOGIC: Grossly nonfocal. LABORATORY DATA: Sodium 135. Basic metabolic profile is otherwise unremarkable except for bicarbonate that jumped up to 37 today. Glucose 143. Hemoglobin was 13.5 on presentation, but despite aggressive diuresis, she has fallen slightly to 12.8. Her white blood cell count has trended downward nicely. Neutrophil count is normal at 62%. Platelets are 237,000. Urinalysis is essentially unremarkable except for some glycosuria. Urine culture is unremarkable. IMAGIN. Chest x-ray demonstrates left-sided pleural parenchymal disease that seems to increase the next day. 2. Bedside ultrasound demonstrates a pocket of fluid at the left base. It had irregular features to it and is not perfectly layering. There is no effusion on the right side. ASSESSMENT: 1. Chronic obstructive pulmonary disease with acute exacerbation. 2. Community-acquired pneumonia, possible. 3. Pleural effusion. DISCUSSION AND PLAN: We will move forward with ultrasound guided thoracentesis. If the fluid is sterile, she will be a candidate for discharge from the hospital in the morning with a 5 day course of steroids, and 7 days of antibiotics. Pulmonary will continue to follow. If she is still here on Sunday , Dr. Moran will assume coverage. 70 minutes have been devoted to this patient in various activities. I personally reviewed all imaging studies and laboratory data noted within this document. For fifty percent of this time, I was interacting with the patient at the bedside or coordinating care with the care team. For the remainder of the time I was immediately available to the patient in the hospital unit. [facility]
--- NOTE | 2017-08-18 22:02 | CT ---
CT OF THE THORAX WITHOUT IV CONTRAST 08/18/17 INDICATION: 72-year-old female with followup left sided thoracentesis by Dr. Durán. The patient is complaining o f left sided chest pain, shortness of breath, cough, COPD, and lightheadedness. Patient has history o f cholecystectomy and partial lobectomy. COMPARISON: Prior CT of the thorax dated 01/18/15. FINDINGS: The postsurgical changes of partial pneumonectomy of the left upper lobe is stable. There has been in terval development of a 1.4 cm nodule adjacent to the pneumonectomy suture line on image 22 of series 3. There are patchy areas of interstitial opacity within the inferior lingula which are new from the exam. There are patchy reticular and nodular opacities within the left lower which are new. There are new n odular opacities seen within the right lower lobe which are more tree-in-bud in morphologic appearanc e. This is best seen on image 44 of series 3. There is a mildly prominent prevascular lymph node now measuring 9 mm. There is an enlarged pretrache al lymph node on image 18 of series 2 measuring 1.1 cm. there is enlarged subcarinal lymph node measu ring 1.7 cm. There is an enlarged left tracheobronchial lymph node measuring 1.4 cm. There are mitral annular calcifications. There are coronary artery calcifications. The gallbladder is surgically absent. No definite suspicious osteolytic or osteoblastic lesion is aristeo ntified. No acute fracture is evident. IMPRESSION: New reticulonodular opacities seen within both lower lobes, left greater than right, which can be see n with an infectious or inflammatory bronchiolitis. There is also some patchy air space opacity with interstitial prominence involving the inferior lingula which may reflect a similar process. There is slightly more prominent nodular opacity now present along the partial pneumonectomy site of the left upper lobe and superior lingula on image 23 of series 2 measuring up to 1.4 cm. Recurrent malignancy with metastatic disease cannot be entirely excluded. Short term followup is recommended. Enlarged lymph nodes of the mediastinum and left tracheobronchial region may be reactive in nature. S hort term followup is recommended. Code T POS: [facility]
[2017-08-19] MEDS: PROVENTIL INHALER 6.7 G (200 INHALATIONS) INH PRN (04:10)
[2017-08-19] MEDS: Acetaminophen 325 MG TAB PO PRN (04:16)
[2017-08-19] MEDS: Levothyroxine Sodium 25 MCG TAB PO SCH (05:05)
[2017-08-19 05:31] LABS: #Eosinphils 0.2 thou/uL (0.0-0.7); #Lymphocytes 3.3 thou/uL (1.20-3.40); #Monocytes 0.7 thou/uL (0.11-0.59); #Neutrophils 6.6 thou/uL (1.40-6.50); %Basophils 0.2 % (0.0-1.0); %Eosinophils 1.9 % (0.0-10.0); %Lymphocytes 30.2 % (21.0-51.0); %Monocytes 6.4 % (0.0-10.0); %Neutrophils 61.3 % (42.0-75.0); Hemoglobin 11.7 g/dL (12.0-16.0); Mean Corpuscular HGB CONC 31.5 g/dL (32.0-36.0); Mean Corpuscular Hemoglobin 30.2 pg (27.0-31.0); Mean Corpuscular Volume 96.2 fl (81.0-99.0); Mean Platelet Volume 8.2 fL (7.4-10.4); Platelet Count 238 thou/uL (130-400); RBC Distribution Width 12.2 % (11.5-14.5); Red Blood Cell (RBC) Count 3.86 mill/uL (4.20-5.40); White Blood Cell (WBC) Count 10.8 thou/uL (4.8-10.8)
[2017-08-19 05:46] LABS: Anion Gap 13 mmol/L (10-20); BUN (Urea Nitrogen) 37 mg/dL (9.8-20.1); Calc. Creatinine Clearance 78 mL/min (70-130); Calcium 9.3 mg/dL (7.8-10.44); Carbon Dioxide 31 mmol/L (23-31); Chloride 93 mmol/L (98-107); Estimated GFR-MDRD 63; Glucose 130 mg/dL (83-110); Potassium 3.5 mmol/L (3.5-5.1); Sodium 133 mmol/L (136-145)
[2017-08-19] MEDS: Ipratropium Oral Inhaler (200 INHALATIONS) INH SCH ×4 (07:22→19:00)
[2017-08-19] MEDS: Nebivolol HCl 5 MG TAB PO SCH (08:54)
[2017-08-19] MEDS: predniSONE 20 MG TAB PO SCH (08:54)
[2017-08-19] MEDS: Primidone 250 MG TAB PO SCH ×3 (08:54→20:42)
[2017-08-19] MEDS: Rosuvastatin 20 MG TAB PO SCH (08:54)
[2017-08-19] MEDS: HumaLOG 300 UNITS/3 ML VIAL SC PRN ×2 (12:12→17:28)
--- NOTE | 2017-08-19 12:22 | PDOC.PN ---
- Subjective Encounter Start Date: 08/19/17 Encounter Start Time: 12:21 Patient seen and examiend, states she has been coughing and wheezing all night and very uncomfortable. No family at bedside, all questions answered. - Objective Vital Signs & Weight: Vital Signs (12 hours) Temp Pulse Resp BP Pulse Ox 08/19/17 11:00 97.6 F 68 18 118/73 95 08/19/17 07:41 97.7 F 64 18 104/63 95 08/19/17 04:10 82 16 92 L 08/19/17 04:00 97.6 F 79 18 102/68 92 L I&O: 08/18/17 08/19/17 08/20/17 06:59 06:59 06:59 Intake Total 950 1350 480 Balance 950 1350 480 Result Diagrams: 08/19/17 03:48 08/19/17 03:48 Additional Labs: Accuchecks 08/19/17 08/19/17 08/18/17 11:34 04:48 20:46 POC Glucose 225 H 149 H 163 H Phys Exam - Physical Examination Constitutional: NAD obese HEENT: PERRLA, moist MMs, sclera anicteric Neck: no nodes, no JVD, supple Respiratory: wheezing present coughing at the end of every sentence Cardiovascular: RRR, no significant murmur, no rub Gastrointestinal: soft, non-tender, no distention Musculoskeletal: pulses present, edema present (trace) Neurological: non-focal, normal sensation Dx/Plan (1) Urinary tract infection Status: Acute (2) COPD (chronic obstructive pulmonary disease) Status: Chronic (3) Hypothyroidism Code(s): E03.9 - HYPOTHYROIDISM, UNSPECIFIED Status: Chronic (4) Obesity (BMI 30-39.9) Code(s): E66.9 - OBESITY, UNSPECIFIED Status: Chronic - Plan * s/p thoracentesis * continues to cough * continue with current plan of care for now * pulmonary following * repeat CXR in AM * DC plans ni 24-48hrs if patient's clinical status improves and ok with pulmonary, plan was to discharge today but patient appears ill and worsening cough, will monitor * case and plan d/w patient at length, she understands and agrees with this plan
[2017-08-19] MEDS: Docusate 100 MG CAP PO PRN (15:28)
--- NOTE | 2017-08-19 17:38 | PRG ---
DATE OF SERVICE: 08/19/2017 SERVICE: Pulmonary Medicine. INTERVAL HISTORY: The patient is doing fine from a respiratory standpoint. She has some left pleuri tic chest discomfort last night lasted for a couple of hours. It resolved overnight. Since then, cyndi hanks has been doing okay. She denies any shortness of breath, lightheadedness, dizziness, chest pain. PHYSICAL EXAMINATION: VITAL SIGNS: Afebrile, pulse 68, blood pressure 118/73, respirations 18, saturation 95% on 2 liters nasal cannula. GENERAL: The patient is awake, alert, no apparent distress. LUNGS: Decent air entry. There is no prolonged expiratory phase. Dependent crackles are present in the right base. HEART: Normal rate, regular. ABDOMEN: Soft, nontender and nondistended. Bowel sounds are positive. There is no rebound or guard ing. She has active bowel sounds. MUSCULOSKELETAL: No cyanosis or clubbing. Trace pitting in the bilateral lower extremities. NEUROLOGIC: Grossly nonfocal. LABORATORY DATA: WBC 10.8, hemoglobin 11.7, platelets 238,000. Basic metabolic profile is essential ly unremarkable as of this morning with sodium that is stable at 133. Body fluid culture is currentl y sterile. Urine culture is negative to date. IMAGING: CT of the chest demonstrates right scattered infiltrate. There is no pleural effusion. Re active lymph nodes are present throughout the mediastinum. ASSESSMENT: 1. Acute hypoxic respiratory failure, resolved. 2. Community-acquired pneumonia. 3. Chronic obstructive pulmonary disease with acute exacerbation. PLAN: The patient is doing absolutely fantastic from a cardiovascular and respiratory standpoint. Blessing hanks will repeat hemoglobin tomorrow morning. If this is stable, she can be transitioned home to [facility] total duration of 7 days of antibiotics, and 5 days of p.o. steroids. Pulmonary or Critical Care will continue to follow, but Dr. Moran will assume coverage in the morning.
[2017-08-19] MEDS: Mometasone Furoate 120 PUFF 220 MCG INH SCH (19:02)
[2017-08-19] MEDS: Benzonatate 100 MG CAP PO PRN (20:42)
[2017-08-20] MEDS: Benzonatate 100 MG CAP PO PRN (04:57)
[2017-08-20] MEDS: Levothyroxine Sodium 25 MCG TAB PO SCH (05:07)
[2017-08-20 05:09] LABS: Hemoglobin 12.1 g/dL (12.0-16.0)
[2017-08-20] MEDS: Ipratropium Oral Inhaler (200 INHALATIONS) INH SCH ×2 (06:11→09:36)
[2017-08-20] MEDS: Nebivolol HCl 5 MG TAB PO SCH (08:26)
[2017-08-20] MEDS: Lisinopril 20 MG TAB PO SCH ×2 (08:26→21:01)
[2017-08-20] MEDS: predniSONE 20 MG TAB PO SCH (08:26)
[2017-08-20] MEDS: Docusate 100 MG CAP PO PRN (08:26)
[2017-08-20] MEDS: Rosuvastatin 20 MG TAB PO SCH (08:26)
[2017-08-20] MEDS: Primidone 250 MG TAB PO SCH ×3 (08:31→21:01)
[2017-08-20] MEDS: HumaLOG 300 UNITS/3 ML VIAL SC PRN ×2 (11:53→18:20)
--- NOTE | 2017-08-20 13:05 | PDOC.PN ---
- Subjective Encounter Start Date: 08/20/17 Encounter Start Time: 07:40 Pt seen for followup re: COPD exacerbation. Reports cough, minimal sputum. No fevers or chills. - Objective Vital Signs & Weight: Vital Signs (12 hours) Temp Pulse Resp BP BP Pulse Ox 08/20/17 10:30 72 16 96 08/20/17 09:36 79 20 96 08/20/17 08:26 92/59 L 08/20/17 08:00 98.9 F 72 16 116/70 97 08/20/17 06:11 75 16 95 08/20/17 04:14 97.8 F 75 20 135/73 95 I&O: 08/19/17 08/20/17 08/21/17 06:59 06:59 06:59 Intake Total 1350 1890 480 Balance 1350 1890 480 Result Diagrams: 08/20/17 04:03 08/19/17 03:48 Additional Labs: Accuchecks 08/20/17 08/20/17 08/19/17 11:27 04:32 20:43 POC Glucose 272 H 126 H 170 H 08/19/17 08/18/17 08/18/17 16:29 16:15 11:48 POC Glucose 231 H 271 H 252 H Phys Exam - Physical Examination Obese HEENT: moist MMs, sclera anicteric Neck: no JVD, supple L basal crackles Cardiovascular: RRR Gastrointestinal: soft, non-tender Neurological: moves all 4 limbs Psychiatric: normal affect Dx/Plan (1) CAP (community acquired pneumonia) Code(s): J18.9 - PNEUMONIA, UNSPECIFIED ORGANISM Status: Acute Qualifiers: Laterality: left Comment: continue antibiotics. s/p thoracentesis for pleural effusion. (2) COPD exacerbation Code(s): J44.1 - CHRONIC OBSTRUCTIVE PULMONARY DISEASE W (ACUTE) EXACERBATION Status: Acute Comment: Continue oxygen, steroids, bronchodilators and antibiotics. (3) Coronary artery disease Code(s): I25.10 - ATHSCL HEART DISEASE OF [place] CORONARY ARTERY W/O ANG PCTRS Status: Chronic Comment: stable (4) Diabetes type 2, controlled Code(s): E11.9 - TYPE 2 DIABETES MELLITUS WITHOUT COMPLICATIONS Status: Chronic Comment: Bllod sugars elevated, likely due to steroids. Continue accuchecks, insulin sliding scale. (5) Dyslipidemia Code(s): E78.5 - HYPERLIPIDEMIA, UNSPECIFIED Status: Chronic Comment: continue statin (6) Hypertension Code(s): I10 - ESSENTIAL (PRIMARY) HYPERTENSION Status: Chronic Comment: Monitor vital signs, titrate antihypertensives (BP low today) (7) Hypothyroidism Code(s): E03.9 - HYPOTHYROIDISM, UNSPECIFIED Status: Chronic Comment: continue thyroid replacement therapy (8) Obesity (BMI 30-39.9) Code(s): E66.9 - OBESITY, UNSPECIFIED Status: Chronic (9) Paroxysmal atrial fibrillation Code(s): I48.0 - PAROXYSMAL ATRIAL FIBRILLATION Status: Chronic Comment: continue anticoagulation (10) H/O: lung cancer Code(s): Z85.118 - PERSONAL HISTORY OF MALIGNANT NEOPLASM OF BRONCHUS AND LUNG Status: Chronic (11) Urinary tract infection Status: Ruled-out Comment: No evidence of UTI, final urine culture negative - Plan * . Review of Systems - Review of Systems Constitutional: negative: fever, chills, sweats, weakness, malaise Respiratory: Cough, SOB with Excertion, Sputum Cardiovascular: negative: chest pain, palpitations, orthopnea, paroxysmal nocturnal dyspnea, edema, light headedness - Medications/Allergies Allergies/Adverse Reactions: Allergies Allergy/AdvReac Type Severity Reaction Status Date / Time No Known Allergies Allergy Verified 07/17/17 23:21 Medications: Current Medications Acetaminophen (Tylenol) 650 mg PO Q4H PRN PRN Reason: Headache/Fever or Pain Last Admin: 08/19/17 04:16 Dose: 650 mg Albuterol Sulfate (Proventil Hfa) 2 puff INH Q6HR PRN PRN Reason: SOB &/or Wheezing Last Admin: 08/19/17 04:10 Dose: 2 puff Albuterol/Ipratropium (Duoneb) 3 ml NEB [id number] STEPHEN Last Admin: 08/20/17 10:30 Dose: 3 ml Benzonatate (Tessalon) 100 mg PO TIDPRN PRN PRN Reason: Cough Last Admin: 08/20/17 04:57 Dose: 100 mg Dextrose/Water (Dextrose 50%) 25 gm SLOW IVP PRN PRN PRN Reason: Hypoglycemia Docusate Sodium (Colace) 100 mg PO BIDPRN PRN PRN Reason: Constipation Last Admin: 08/20/17 08:26 Dose: 100 mg Doxycycline Hyclate (Vibramycin) 100 mg PO BID [facility] Glucagon (Glucagon) 1 mg IM PRN PRN PRN Reason: Hypoglycemia Dextrose/Water (D5w) 1,000 mls @ 0 mls/hr IV .Q0M PRN; As Directed PRN Reason: Hypoglycemia Insulin Human Lispro (Humalog) 0 units SC .MILD SLIDING SCALE PRN PRN Reason: Mild Correctional Scale Last Admin: 08/20/17 11:53 Dose: 4 unit Levofloxacin (Levaquin) 500 mg PO 2000 [facility] Last Admin: 08/19/17 20:42 Dose: 500 mg Levothyroxine Sodium (Synthroid) 25 mcg PO 0600 [facility] Last Admin: 08/20/17 05:07 Dose: 25 mcg Lisinopril (Zestril) 20 mg PO BID [facility] Last Admin: 08/20/17 08:26 Dose: 20 mg Mometasone Furoate/Formoterol Fumar (Dulera 200 Mcg/5 Mcg Inhaler) 2 puff INH BID-RT [facility] Nebivolol (Bystolic) 5 mg PO DAILY [facility] Last Admin: 08/20/17 08:26 Dose: 5 mg Ondansetron HCl (Zofran) 4 mg IVP Q6H PRN PRN Reason: Nausea/Vomiting Last Admin: 18 07:41 Dose: 4 mg Pantoprazole Sodium (Protonix) 40 mg PO 2100 [facility] Last Admin: 08/19/17 20:42 Dose: 40 mg Prednisone (Prednisone) 20 mg PO DAILY [facility] Last Admin: 08/20/17 08:26 Dose: 20 mg Primidone (Mysoline) 250 mg PO TID [facility] Last Admin: 08/20/17 08:31 Dose: 250 mg Rosuvastatin Calcium (Crestor) 40 mg PO DAILY [facility] Last Admin: 08/20/17 08:26 Dose: 40 mg Sodium Chloride (Flush - Normal Saline) 10 ml IVF Q12HR [facility] Last Admin: 08/20/17 08:31 Dose: Not Given Sodium Chloride (Flush - Normal Saline) 10 ml IVF PRN PRN PRN Reason: Saline Flush Zinc Oxide (Hebert's Butt Paste 16% Oin) 0 gm TOP ASDIR PRN PRN Reason: Diaper Rash
--- NOTE | 2017-08-20 15:16 | PRG ---
DATE OF SERVICE: 08/20/2017 SUBJECTIVE: This morning, she is breathing. She is still short of breath. Denies any chest pain, chills, sweats. She is coughing up yellow sputum. X-ray shows left sided infiltrate. CAT scan showed infiltrate in the lung with no significant effusion. OBJECTIVE: VITAL SIGNS: Sats 96% on 2 liters, temperature 98, pulse 80. LUNGS: bilteral crakles _ wheezing. CARDIAC: Normal S1 and S2. No gallops. ABDOMEN: Soft. No masses. IMPRESSION: Community acquired pneuomonia. Continue Levaquin and prednisone, Dulera_ can be added, neb treatments if stable. Can be discharged home in the next 24 to 48 hours. MTDD
[2017-08-20] MEDS: Mometasone/Formoterol 120 PUFF INHALER INH SCH (20:13)
[2017-08-20] MEDS: Doxycycline 100 MG CAP PO SCH (21:00)
[2017-08-20] MEDS: Acetaminophen 325 MG TAB PO PRN (21:56)
[2017-08-21] MEDS: Benzonatate 100 MG CAP PO PRN ×2 (00:40→10:58)
[2017-08-21] MEDS: Levothyroxine Sodium 25 MCG TAB PO SCH (05:22)
[2017-08-21] MEDS: Mometasone/Formoterol 120 PUFF INHALER INH SCH (06:25)
[2017-08-21] MEDS: predniSONE 20 MG TAB PO SCH (08:00)
[2017-08-21] MEDS: Rosuvastatin 20 MG TAB PO SCH (08:00)
[2017-08-21] MEDS: Doxycycline 100 MG CAP PO SCH (08:00)
[2017-08-21] MEDS: Primidone 250 MG TAB PO SCH (08:01)
[2017-08-21] MEDS: Lisinopril 20 MG TAB PO SCH (08:01)
[2017-08-21] MEDS: Nebivolol HCl 5 MG TAB PO SCH (08:02)
--- NOTE | 2017-08-21 09:31 | PRG ---
DATE OF SERVICE: 08/21/2017 This morning she is much better, less short of breath. PHYSICAL EXAMINATION: VITAL SIGNS: Sats at baseline 97% on 2 liters, blood pressure 113/54, temperature 97, respirations 1 8. CHEST: No wheezing, no crackles. CARDIAC: Normal S1-S2. ABDOMEN: Soft, no masses. IMPRESSION: Left-sided community-acquired pneumonia, improved. Culture negative. PLAN; She can be discharged home on present antibiotics. She can see Dr. Moran in the office in 2 we eks. A tapering dose of prednisone.
[2017-08-21 12:19] VITALS: BP 120/75; TEMP 98.5
--- NOTE | 2017-08-21 12:38 | DIS ---
PRIMARY CARE PHYSICIAN: Dr. Melvin Chery DATE OF ADMISSION: 08/16/2017 DATE OF DISCHARGE: 08/21/2017 DISCHARGE DIAGNOSES: 1. Left lower lobe pneumonia. 2. Chronic obstructive pulmonary disease exacerbation. CONDITION OF PATIENT ON THE DAY OF DISCHARGE: Stable. I assessed Ms. Salinas on the day of dischar ge. She denies any chest pain or shortness of breath. She denies any fevers or chills. She denies any nausea, vomiting, diarrhea or abdominal pain. Vital signs are stable. S1 and S2 are heard, regu lar. Lungs are clear to auscultation bilaterally. CONSULTATIONS DURING THIS HOSPITALIZATION: Pulmonology, Dr. Roberth Patel. DISCHARGE MEDICATIONS: Aspirin 81 mg daily, doxycycline 100 mg 2 times a day, Empagliflozin 25 mg da jimmie, Lasix 80 mg 2 times a day, Atrovent HFA 2 puffs 4 times a day, levofloxacin 500 mg daily for 1 w [place], levothyroxine 25 mcg daily, lisinopril 20 mg 2 times a day, Medrol Dosepak, Dulera 2 puffs 2 tarik es a day, nebivolol 5 mg daily, Protonix 40 mg daily, primidone 250 mg 3 times a day, rivaroxaban 20 mg daily, lovastatin 40 mg daily, sulfasalazine 500 mg 2 times a day, Proventil HFA p.r.n., cod liver oil/zinc oxide 1 application topically as needed. HOSPITAL COURSE: Ms. Salinas is a pleasant 72-year-old lady who was admitted to [facility] on 08/16/2017 for left lower lobe pneumonia and chronic obstructive pulmonary disease exacerbation. She was seen by Pulmonology Service. She had CT scan of the chest on 08/18/2017, whic h showed new reticular nodular opacities within both lobes, left greater than right, which can be see n with infectious or inflammatory bronchitis. She also had patchy airspace opacity with interstitial prominence involving the inferior lingula. The radiologist recommended short term follow up to excl ude recurrent malignancy with metastatic disease. On 08/18/2017, she underwent left-sided thoracente sis. No malignant cells were identified. She continued to improve symptomatically and is being disc harged home in a stable condition. Many thanks for allowing me to participate in your patient's care. Please feel free to contact me wi th any questions or concerns. DISCHARGE DESTINATION: Home. TOTAL AMOUNT OF TIME SPENT COORDINATING THIS DISCHARGE: 33 minutes.
--- NOTE | 2017-08-27 15:46 | EKG ---
Test Reason : Blood Pressure : / mmHG Vent. Rate : 080 BPM Atrial Rate : 080 BPM P-R Int : 134 ms QRS Dur : 086 ms QT Int : 384 ms P-R-T Axes : 038 -22 016 degrees QTc Int : 442 ms Normal sinus rhythm Normal ECG Confirmed by FLACO Fair, JOSELO ([id number]), sports editor RAVEN DAVISON ([id number]) on 08/27/2017 3:46:19 PM Referred By: Confirmed By:JOSELO SAM M.D.
== END 2017-08-21 12:27 | disposition home or self-care (01) | DRG 193 ==
LOC: ERS 02:28 → T4-A 04:14 → OBSVTOIN 15:46
PROVIDERS: ADMIT Family Medicine; ATTEND Family Medicine
PROC: 0W9B3ZX Drainage of Left Pleural Cavity, Percutaneous Approach, Diagnostic (ICD-10-PCS; principal; 2017-08-18)
DX: J18.9 Pneumonia, unspecified organism; E11.9 Type 2 diabetes mellitus without complications; J96.01 Acute respiratory failure with hypoxia; Z79.84 Long term (current) use of oral hypoglycemic drugs; J44.0 Chronic obstructive pulmonary disease with (acute) lower respiratory infection; Z79.52 Long term (current) use of systemic steroids; Z85.118 Personal history of other malignant neoplasm of bronchus and lung; I10 Essential (primary) hypertension; I25.10 Atherosclerotic heart disease of native coronary artery without angina pectoris; Z79.01 Long term (current) use of anticoagulants; E78.5 Hyperlipidemia, unspecified; I48.0 Paroxysmal atrial fibrillation; E66.01 Morbid (severe) obesity due to excess calories; Z68.33 Body mass index [BMI] 33.0-33.9, adult; Z79.82 Long term (current) use of aspirin; J44.1 Chronic obstructive pulmonary disease with (acute) exacerbation; Z90.2 Acquired absence of lung [part of]; Z79.899 Other long term (current) drug therapy; Z99.81 Dependence on supplemental oxygen
CPT/HCPCS: 36415; 36416; 71045; 71250; 80048; 80053; 82553; 82945; 83615; 83986; 84157; 84484; 85014; 85018; 85025; 85060; 87070; 87086; 87116; 87205; 87206; 88112; 88305; 89051; 93005; 94640; 94664; 96374; A4216; G8978-GP-CJ; G8979-GP-CJ; G8980-GP-CJ; J0696; J1956; J2270; J2405; J2930; J7506; J7620

== ENCOUNTER 2017-08-23 19:15 | Observation (INO) | payer MEDICARE ==
[2017-08-23] MEDS ORDERED: Piperacillin/Tazobactam 4.5 GM VIAL ONE (20:28)
--- NOTE | 2017-08-23 23:09 | HP ---
DATE OF ADMISSION: 08/23/2017 Patient was seen and examined on 08/23/2017. PRIMARY CARE PHYSICIAN: Dr. Chery. CHIEF COMPLAINT: Shortness of breath. PRIMARY ORACLE TECHNICAL ARCHITECT: Dr. Moran. HISTORY OF PRESENT ILLNESS: Patient is a 72-year-old female with chronic respiratory failure, on home oxygen, COPD, diabetes mellitus type 2, paroxysmal atrial fibrillation on anticoagulation, and hyperlipidemia, presented to the emergency room with above complaints. The patient was discharged from this facility 2 days ago with a diagnosis of COPD exacerbation with left lower lobe pneumonia. The patient was evaluated by Pulmonology, Dr. Moran. She was discharged home on doxycycline, Levaquin and Medrol Dosepak. Post-discharge, patient felt okay for approximately 24 hours. This afternoon when she was outside at a grocery store, she had sudden onset of shortness of breath along with chest tightness and wheezing. She presented to [facility]. She continues to have cough productive of thick whitish phlegm. No palpitations, syncope, fever, or chills reported. In the emergency room at [facility], her initial vital signs showed temperature 98.6, respirations 18, pulse rate of 81 with a blood pressure 205/79 with O2 saturation 95% on 2 liter nasal cannula. The patient was in mild respiratory distress with wheezing. She received 2 grams magnesium, 125 Solu-Medrol, IV fluid, aspirin, Tylenol, and nebulizer treatment. She was then transferred to this facility for hospital admission. PAST MEDICAL HISTORY: 1. Chronic obstructive pulmonary disease with recent exacerbation and pneumonia. 2. Diabetes mellitus type 2. 3. Hypertension. 4. Obesity. 5. Hyperlipidemia. 6. History of lung malignancy. 8. Paroxysmal atrial fibrillation. 9. Hypothyroidism. PAST SURGICAL HISTORY: 1. Cholecystectomy. 2. Hysterectomy. 3. Carpal tunnel surgery. 4. Cardiac ablation. 5. Left lobectomy. 6. Recent thoracentesis. ALLERGIES: No known drug allergies. CURRENT HOME MEDICATIONS: The patient does not remember all of her medications. Family to get accurate list of medications. The patient states that her medications are unchanged from last admission. FAMILY HISTORY: Negative for heart disease. SOCIAL HISTORY: Patient currently lives at home. She has a remote history of smoking. No alcohol, tobacco or drug use. CODE STATUS: She is FULL CODE. Makes her own decision. REVIEW OF SYSTEMS: The following complete review of systems was negative, unless otherwise mentioned in the HPI or below: Constitutional: Weight loss or gain, ability to conduct usual activities. Skin: Rash, itching. Eyes: Double vision, pain. ENT/Mouth: Nose bleeding, neck stiffness, pain, tenderness. Cardiovascular: Palpitations, dyspnea on exertion, orthopnea. Respiratory: Shortness of breath, wheezing, cough, hemoptysis, fever or night sweats. Gastrointestinal: Poor appetite, abdominal pain, heartburn, nausea, vomiting, constipation, or diarrhea. Genitourinary: Urgency, frequency, dysuria, nocturia. Musculoskeletal: Pain, swelling. Neurologic/Psychiatric: Anxiety, depression. Allergy/Immunologic: Skin rash, bleeding tendency. PHYSICAL EXAMINATION: VITAL SIGNS: As discussed above. Current blood pressure was 154/70. GENERAL: A 72-year-old female in mild respiratory distress, able to complete short phrases. HEENT: Atraumatic, normocephalic, sclerae are anicteric. Moist mucous membranes. No oral lesion. NECK: Supple, no JVD appreciated. No carotid bruit. LUNGS: Showed minimal accessory muscle use. There were scattered rhonchi with mild expiratory wheezing all over. Lungs were symmetrical. No chest wall tenderness. HEART: S1, S2 present. Regular rate and rhythm, 2/6 systolic murmur over the mitral area. ABDOMEN: Abdomen was soft, nontender, bowel sounds present, no rebound or guarding. EXTREMITIES: Trace edema in bilateral lower extremities. NEUROLOGIC: Grossly nonfocal, moves all four extremities. PSYCHIATRY: Alert, awake, oriented x3. SKIN: Warm and dry. LYMPH NODES: No palpable lymph nodes in the neck. PERIPHERAL VASCULAR: Radial pulses palpable bilaterally. MUSCULOSKELETAL: No joint swelling or tenderness. LABORATORY FINDINGS: EKG by my review showed sinus rhythm without significant ST-T wave changes. Chest x-ray by my review was negative for infiltrate. It showed chronic findings. CBC showed WBC 8.9 with hemoglobin 13.2, platelet count 277. D-dimer was 1.84. Chemistries showed sodium 138, potassium 3.6, chloride 94, bicarbonate 31, BUN 23, creatinine 0.91, glucose 356. Troponins were negative. Urinalysis showed glucosuria without any wbc's. IMPRESSION: 1. Chronic obstructive pulmonary disease exacerbation. 2. Recent left lower lobe pneumonia with peripneumonic effusion, status post thoracentesis. 3. Diabetes mellitus type 2. 4. Hypertension. 5. Hyperlipidemia. 6. History of adenocarcinoma of the lung, status post lobectomy. 7. Paroxysmal atrial fibrillation on anticoagulation. 8. Obesity BMI 34.3 PLAN: The patient will be monitored as a 23-hour observation. We will continue nebulizer treatment, Levaquin, doxycycline. Steroids will be changed to IV. The patient is requesting consultation with Pulmonary. Due to cardiac history, we will monitor on telemetry. Serial troponins will be obtained. We will resume home medications once confirmed. Plan of care was discussed with the patient. She stated understanding. MTDD
[2017-08-23 23:15] VITALS: BMI 34.2
[2017-08-24] MEDS ORDERED: Insulin Regular 300 UNITS/3 ML VIAL SC PRN (00:10)
[2017-08-24] MEDS ORDERED: Dextrose 5% in Water 1,000 ML IV PRN (00:10)
[2017-08-24] MEDS ORDERED: Dextrose 50% Abboject 50 ML SYRINGE SLOW IVP PRN (00:10)
[2017-08-24] MEDS ORDERED: Acetaminophen 325 MG TAB PO PRN (00:10)
[2017-08-24] MEDS ORDERED: Lisinopril 20 MG TAB PO SCH (00:30)
[2017-08-24 00:49] LABS: Troponin I Less than 0.010 ng/mL (< 0.028)
[2017-08-24] MEDS: Senokot 8.6 MG TAB PO PRN ×2 (01:10→19:50)
[2017-08-24] MEDS ORDERED: hydrALAZINE 20 MG/ML VIAL SLOW IVP PRN (02:55)
[2017-08-24] MEDS ORDERED: Furosemide 40 MG TAB PO SCH (03:00)
[2017-08-24] MEDS ORDERED: Furosemide 20 MG TAB PO SCH (06:00)
[2017-08-24] MEDS: Levothyroxine Sodium 25 MCG TAB PO SCH (06:39)
[2017-08-24] MEDS: Mometasone/Formoterol 120 PUFF INHALER INH SCH ×2 (08:23→18:46)
[2017-08-24] MEDS ORDERED: Non-Formulary Item 1 EACH (Empagliflozin [Jardiance] 25 MG) PO SCH (09:00)
[2017-08-24] MEDS: Lisinopril 20 MG TAB PO SCH ×2 (09:30→19:52)
[2017-08-24] MEDS: Nebivolol HCl 5 MG TAB PO SCH (09:31)
[2017-08-24] MEDS: sulfaSALAzine 500 MG TAB PO SCH ×2 (09:31→19:51)
[2017-08-24] MEDS: Rosuvastatin 20 MG TAB PO SCH (09:31)
[2017-08-24] MEDS: guaiFENesin ER 600 MG TAB PO SCH ×2 (09:31→19:52)
[2017-08-24] MEDS: Doxycycline 100 MG CAP PO SCH ×2 (09:31→19:52)
[2017-08-24] MEDS: Saccharomyces boulardii 250 MG CAP PO SCH (09:31)
[2017-08-24] MEDS: Rivaroxaban 10 MG TAB PO SCH (09:32)
[2017-08-24] MEDS: Primidone 250 MG TAB PO SCH ×3 (09:35→19:53)
[2017-08-24 09:57] LABS: Anion Gap 15 mmol/L (10-20); BUN (Urea Nitrogen) 17 mg/dL (9.8-20.1); Calc. Creatinine Clearance 92 mL/min (70-130); Calcium 9.3 mg/dL (7.8-10.44); Carbon Dioxide 29 mmol/L (23-31); Chloride 95 mmol/L (98-107); Estimated GFR-MDRD 73; Glucose 252 mg/dL (83-110); Potassium 3.3 mmol/L (3.5-5.1); Sodium 136 mmol/L (136-145)
[2017-08-24 10:24] LABS: Hemoglobin 12.4 g/dL (12.0-16.0); Platelet Count 281 thou/uL (130-400)
[2017-08-24] MEDS: Insulin Regular 300 UNITS/3 ML VIAL SC PRN ×2 (11:41→17:49)
--- NOTE | 2017-08-24 14:55 | CON ---
DATE OF CONSULTATION: 08/24/2017 HISTORY OF PRESENT ILLNESS: Ms. Salinas is a 72-year-old female who is well known to me with [facility]. Yesterday, she woke up with inability to catch her breath. She says she is coughing some yellow sputum. She denies any fever or chills. X-ray showed a left ba silar infiltrate. She is admitted and started on oral antibiotics. This morning, she is feeling better. She has numer ous admissions in the hospital that as extensively and well outlined in multiple medical records. In fact, she was seen in the office, but long ago. She has severe COPD, which limits her activity to m ore than 50 feet at a time. PAST MEDICAL HISTORY: Recurrent pneumonia, end-stage COPD, morbid obesity, hypertension, adenocarcin quintin of left upper lung, status post lobectomy, atrial fibrillation, severe deconditioning. PAST SURGICAL HISTORY: Upper lung lobectomy, ablation, gallbladder, hysterectomy. SOCIAL HISTORY: Longtime former smoker, smoked many years ago. No alcohol abuse. MEDICATIONS: List of medicines from home includes Azulfidine 500 twice a day, Xarelto 20, Mysoline 2 50, Bystolic 5, Dulera, Prinivil 20, Synthroid 25. ALLERGIES: None. REVIEW OF SYSTEMS: Ten point negative. PHYSICAL EXAMINATION: GENERAL: Patient is awake, alert, responsive, in no distress. VITAL SIGNS: Blood pressure is 130/80, pulse 80, sats are 98%, respirations 18. CHEST: Reveals decreased breath sounds, no wheezing or crackles. CARDIAC: Normal S1, S2, no gallops. ABDOMEN: Soft, no masses. X-RAY FINDINGS: X-ray shows a left basilar infiltrate, which may be new. LABORATORY DATA: Electrolytes are normal. White count is only 8000, H&H is 13 and 41, platelet coun t is normal. IMPRESSION: 1. Acute on chronic respiratory failure. 2. End-stage chronic obstructive pulmonary disease. 3. Left lower lung pneumonia. 4. Lung cancer. 5. Atrial fibrillation. PLAN: I agree with present oral antibiotics, steroids, nebulizer treatment. Ambulation. If she is stable in the next 24-48 hours, consider home on oral medication. This is a consultation note, please note 70 minutes of which 50% of time took for direct patient care .
--- NOTE | 2017-08-25 00:22 | PDOC.PN ---
- Subjective Encounter Start Date: 08/24/17 Encounter Start Time: 11:00 Subjective: nsg notes rev, grace ovn, feels that her breathing is currently better -: wants to know if she will be able to go home tomorrow - Objective Resuscitation Status: Resuscitation Status FULL:Full Resuscitation Vital Signs & Weight: Vital Signs (12 hours) Temp Pulse Resp BP BP Pulse Ox 08/24/17 21:39 75 16 94 L 08/24/17 20:00 97.9 F 103 H 16 08/24/17 19:52 168/76 H 08/24/17 19:12 97.9 F 103 H 16 95 08/24/17 18:45 77 16 95 08/24/17 16:00 98.1 F 74 18 165/68 H 96 Weight Weight 193 lb 6.4 oz I&O: 08/23/17 08/24/17 08/25/17 06:59 06:59 06:59 Intake Total 240 Output Total 1025 200 Balance -785 -200 Result Diagrams: 08/24/17 10:14 08/24/17 10:14 Additional Labs: Accuchecks 08/24/17 08/24/17 08/24/17 21:05 15:59 11:18 POC Glucose 216 H 219 H 211 H 08/24/17 06:40 POC Glucose 164 H Phys Exam - Physical Examination Constitutional: NAD HEENT: PERRLA, moist MMs, sclera anicteric Respiratory: no wheezing, no rales, no rhonchi diminished throughout Cardiovascular: RRR, no significant murmur, no rub Gastrointestinal: soft, non-tender, positive bowel sounds Musculoskeletal: no edema, pulses present Neurological: moves all 4 limbs Psychiatric: normal affect, A&O x 3 Dx/Plan - Plan 72F who p/w CC SOB COPD * continue with regimen for exacerbation including IV steroids, nebs, supplemental O2 * apprec pulm c/s * potential d/c home in the AM if continued improvement diet: as haydee activity: as haydee dvt ppx Review of Systems - Medications/Allergies Allergies/Adverse Reactions: Allergies Allergy/AdvReac Type Severity Reaction Status Date / Time No Known Allergies Allergy Verified 08/23/17 22:43 Medications: Current Medications Acetaminophen (Tylenol) 650 mg PO Q4H PRN PRN Reason: Headache/Fever or Pain Last Admin: 08/24/17 01:16 Dose: 650 mg Albuterol/Ipratropium (Duoneb) 3 ml NEB [id number] [facility] Last Admin: 08/24/17 21:39 Dose: 3 ml Albuterol/Ipratropium (Duoneb) 3 ml NEB [id number] PRN PRN Reason: SOB &/or Wheezing Aspirin (Aspirin Chewable) 81 mg PO DAILY [facility] [place] Last Admin: 08/24/17 09:31 Dose: 81 mg Dextrose/Water (Dextrose 50%) 25 gm SLOW IVP PRN PRN PRN Reason: Hypoglycemia Doxycycline Hyclate (Vibramycin) 100 mg PO BID [facility] [place] Last Admin: 08/24/17 19:52 Dose: 100 mg Glucagon (Glucagon) 1 mg IM PRN PRN PRN Reason: Hypoglycemia Guaifenesin (Mucinex) 600 mg PO Q12HR [facility] [place] Last Admin: 08/24/17 19:52 Dose: 600 mg Hydralazine HCl (Apresoline) 10 mg SLOW IVP Q4H PRN PRN Reason: SBP Greater Than 180 Last Admin: 08/24/17 03:04 Dose: 10 mg Dextrose/Water (D5w) 1,000 mls @ 0 mls/hr IV .Q0M PRN; As Directed PRN Reason: Hypoglycemia Insulin Human Regular (Humulin R) 0 units SC .MODERATE SLIDING SC PRN PRN Reason: Moderate Correctional Scale Last Admin: 08/24/17 17:49 Dose: 4 units Insulin Human Regular (Humulin R) 0 units SC .BEDTIME SLIDING SC PRN PRN Reason: Bedtime Correctional Scale Last Admin: 08/24/17 01:13 Dose: 3 unit Levofloxacin (Levaquin) 500 mg PO 0600 [facility] [place] Last Admin: 08/24/17 06:39 Dose: 500 mg Levothyroxine Sodium (Synthroid) 25 mcg PO 0600 [facility] [place] Last Admin: 08/24/17 06:39 Dose: 25 mcg Lisinopril (Zestril) 20 mg PO BID [facility] [place] Last Admin: 08/24/17 19:52 Dose: 20 mg Methylprednisolone Sodium Succinate (Solu-Medrol) 20 mg IVP 0200,1000,1800 [facility] Last Admin: 08/24/17 17:46 Dose: 20 mg Mometasone Furoate/Formoterol Fumar (Dulera 200 Mcg/5 Mcg Inhaler) 2 puff INH BID-RT [facility] [place] Last Admin: 08/24/17 18:46 Dose: 2 puff Nebivolol (Bystolic) 5 mg PO DAILY [facility] Last Admin: 08/24/17 09:31 Dose: 5 mg Primidone (Mysoline) 250 mg PO TID [facility] [place] Last Admin: 08/24/17 19:53 Dose: 250 mg Rivaroxaban (Xarelto) 20 mg PO DAILY [facility] [place] Last Admin: 08/24/17 09:32 Dose: 20 mg Rosuvastatin Calcium (Crestor) 40 mg PO DAILY [facility] [place] Last Admin: 08/24/17 09:31 Dose: 40 mg Saccharomyces Boulardii (Florastor) 250 mg PO DAILY [facility] [place] Last Admin: 08/24/17 09:31 Dose: 250 mg Senna (Senokot) 2 tab PO HSPRN PRN PRN Reason: Constipation Last Admin: 08/24/17 19:50 Dose: 2 tab Sulfasalazine (Azulfidine) 500 mg PO BID [facility] [place] Last Admin: 08/24/17 19:51 Dose: 500 mg
[2017-08-25] MEDS: Levothyroxine Sodium 25 MCG TAB PO SCH (05:41)
[2017-08-25] MEDS: Mometasone/Formoterol 120 PUFF INHALER INH SCH (06:54)
[2017-08-25] MEDS: Primidone 250 MG TAB PO SCH ×2 (08:49→14:06)
[2017-08-25] MEDS: Rosuvastatin 20 MG TAB PO SCH (08:50)
[2017-08-25] MEDS: Doxycycline 100 MG CAP PO SCH (08:50)
[2017-08-25] MEDS: Lisinopril 20 MG TAB PO SCH (08:50)
[2017-08-25] MEDS: sulfaSALAzine 500 MG TAB PO SCH (08:50)
[2017-08-25] MEDS: Saccharomyces boulardii 250 MG CAP PO SCH (08:50)
[2017-08-25] MEDS: Rivaroxaban 10 MG TAB PO SCH (08:51)
[2017-08-25] MEDS: Nebivolol HCl 5 MG TAB PO SCH (08:51)
[2017-08-25] MEDS: guaiFENesin ER 600 MG TAB PO SCH (08:51)
--- NOTE | 2017-08-25 12:23 | PDOC.PN ---
- Subjective Encounter Start Date: 08/25/17 Encounter Start Time: 12:05 Subjective: Expresses no complaint. -: On O2 via N/c - Objective Resuscitation Status: Resuscitation Status FULL:Full Resuscitation Vital Signs & Weight: Vital Signs (12 hours) Temp Pulse Resp BP BP Pulse Ox 08/25/17 11:48 72 16 08/25/17 08:50 172/74 H 08/25/17 08:10 98.5 F 78 20 08/25/17 07:16 98.5 F 78 20 172/74 H 95 08/25/17 06:54 67 12 08/25/17 06:41 98 08/25/17 06:38 67 12 08/25/17 02:22 97.9 F 70 24 H 159/72 H 95 08/25/17 01:47 72 16 95 Weight Weight 191 lb 1.6 oz I&O: 08/24/17 08/25/17 08/26/17 06:59 06:59 06:59 Intake Total 240 360 Output Total 1025 525 Balance -785 -165 Result Diagrams: 08/24/17 10:14 08/24/17 10:14 Additional Labs: Accuchecks 08/25/17 08/25/17 08/25/17 11:08 05:41 02:14 POC Glucose 200 H 179 H 183 H 08/24/17 08/24/17 08/24/17 21:05 15:59 11:18 POC Glucose 216 H 219 H 211 H 08/24/17 00:52 POC Glucose 286 H Phys Exam - Physical Examination Constitutional: NAD Neck: no JVD Respiratory: clear to auscultation bilateral Cardiovascular: RRR Gastrointestinal: soft Neurological: moves all 4 limbs Psychiatric: A&O x 3 Dx/Plan - Plan -: Stable. -: Home today. -: f/u with PCP & pulmonary. * .
[2017-08-25] MEDS ORDERED: PROVENTIL INHALER 6.7 G (200 INHALATIONS) INH PRN (12:28)
[2017-08-25] MEDS ORDERED: methylPREDNISolone 4 mg Tablet PO SCH ×2 (12:30→13:00)
[2017-08-25 12:48] VITALS: BP 181/71; TEMP 97.7
[2017-08-25] MEDS ORDERED: Ipratropium Oral Inhaler (200 INHALATIONS) INH SCH (13:00)
--- NOTE | 2017-08-25 13:01 | DIS ---
DATE OF ADMISSION: 08/23/2017 DATE OF DISCHARGE: 08/25/2017 ADMITTING DIAGNOSIS: Chronic obstructive pulmonary disease. PRIMARY DIAGNOSIS: Chronic obstructive pulmonary disease exacerbation. SECONDARY DIAGNOSES: Diabetes mellitus, hypertension, hyperlipidemia, history of lung cancer, paroxy smal atrial fibrillation, obesity and recent pneumonia. DISCHARGE DIAGNOSES: Diabetes mellitus, hypertension, hyperlipidemia, history of lung cancer, paroxy smal atrial fibrillation, obesity and recent pneumonia. OUTBOUND SALES SPECIALIST: Dr. Moran. PROCEDURE PERFORMED: Bronchodilator via nebulizer, oxygen therapy, administration of IV steroids. COURSE OF HOSPITALIZATION: Uncomplicated, responded well to management. The patient is clinically s table at this time being discharged home. DISCHARGE MEDICATIONS: For discharge medications, please see discharge medication reconciliation she et. FOLLOWUP: The patient is to follow up with her primary care physician and also with Dr. Moran.
--- NOTE | 2017-08-26 00:27 | EKG ---
Test Reason : Blood Pressure : / mmHG Vent. Rate : 073 BPM Atrial Rate : 073 BPM P-R Int : 146 ms QRS Dur : 094 ms QT Int : 396 ms P-R-T Axes : 078 -10 017 degrees QTc Int : 436 ms Normal sinus rhythm Normal ECG Confirmed by GINA ESTRADA ([id number]), publication editor RAVEN DAVISON ([id number]) on 08/26/2017 12:25:37 AM Referred By: Confirmed By:GINA ESTRADA
[2017-08-26] MEDS ORDERED: methylPREDNISolone 4 mg Tablet PO SCH ×2 (08:00→21:00)
--- NOTE | 2017-08-26 11:12 | PRG ---
DATE OF SERVICE: 08/25/2017 SUBJECTIVE: This morning, she is better, she is less short of breath, less cough. OBJECTIVE: VITAL SIGNS: Sats are 95% on 2 liters, blood [id number] , temperature 98, respiration rate 18. CHEST: Decreased breath sounds prolonged expiration. No wheezing. CARDIAC: Normal S1, S2. No gallops. ABDOMEN: Soft, no masses. IMPRESSION: Chronic obstructive pulmonary disease exacerbation, bronchitis, questionable pneumonia. PLAN: She can be discharged home on tapering dose of prednisone for 10 days and doxycycline 100 mg twice a day for a week. Otherwise, continue rest of her medicine from home including nebulizer 02 cardiac meds_ etc. MTDD
[2017-08-27] MEDS ORDERED: methylPREDNISolone 4 mg Tablet PO SCH (08:00)
[2017-08-28] MEDS ORDERED: methylPREDNISolone 4 mg Tablet PO SCH (08:00)
[2017-08-29] MEDS ORDERED: methylPREDNISolone 4 mg Tablet PO SCH (08:00)
[2017-08-30] MEDS ORDERED: methylPREDNISolone 4 mg Tablet PO SCH (08:00)
== END 2017-08-25 14:42 | disposition home or self-care (01) ==
LOC: ERS 19:15 → 2SW 22:03
PROVIDERS: ADMIT Internal Medicine; ATTEND Internal Medicine
DX: Z79.84 Long term (current) use of oral hypoglycemic drugs; Z79.899 Other long term (current) drug therapy; Z68.33 Body mass index [BMI] 33.0-33.9, adult; Z90.2 Acquired absence of lung [part of]; E03.9 Hypothyroidism, unspecified; J44.1 Chronic obstructive pulmonary disease with (acute) exacerbation; E11.9 Type 2 diabetes mellitus without complications; J96.10 Chronic respiratory failure, unspecified whether with hypoxia or hypercapnia; E66.01 Morbid (severe) obesity due to excess calories; Z87.891 Personal history of nicotine dependence; I10 Essential (primary) hypertension; E78.5 Hyperlipidemia, unspecified; I48.91 Unspecified atrial fibrillation; Z79.01 Long term (current) use of anticoagulants; Z99.81 Dependence on supplemental oxygen; Z85.118 Personal history of other malignant neoplasm of bronchus and lung
CPT/HCPCS: 80048; 82565; 82962 ×2; 83735; 84484 ×2; 85014; 85018; 85049; 87040; 93005; 94640 ×5; 94664; 96365; 96366; 96367; 96375; 96376 ×2; 97139 ×2; 99285; G0378; 36415; 36416; J0360; J1815; J1956; J2543; J2920; J3370; J7620

== ENCOUNTER 2017-10-29 17:23 | Emergency (ER) | payer MEDICARE ==
[~2017-10-29 17:23] MED LIST: ISOVUE-370 76%-LOCM 1 ML ONE
[2017-10-29 18:12] LABS: #Basophils 0.1 thou/uL (0.0-0.2); #Eosinphils 0.2 thou/uL (0.0-0.7); #Lymphocytes 3.7 thou/uL (1.20-3.40); #Monocytes 0.5 thou/uL (0.11-0.59); #Neutrophils 5.2 thou/uL (1.40-6.50); %Basophils 0.8 % (0.0-1.0); %Eosinophils 1.7 % (0.0-10.0); %Lymphocytes 38.2 % (21.0-51.0); %Monocytes 5.6 % (0.0-10.0); %Neutrophils 53.7 % (42.0-75.0); Hemoglobin 12.9 g/dL (12.0-16.0); Mean Corpuscular HGB CONC 32.7 g/dL (32.0-36.0); Mean Corpuscular Volume 94.7 fl (81.0-99.0); Mean Platelet Volume 7.4 fL (7.4-10.4); Platelet Count 242 thou/uL (130-400); RBC Distribution Width 12.8 % (11.5-14.5); Red Blood Cell (RBC) Count 4.15 mill/uL (4.20-5.40); White Blood Cell (WBC) Count 9.7 thou/uL (4.8-10.8)
[2017-10-29 18:38] LABS: CKMB 0.4 ng/mL (0-6.6); Troponin I Less than 0.010 ng/mL (< 0.028)
[2017-10-29 18:39] LABS: ALT (SGPT) 9 U/L (8-55); AST (SGOT) 13 U/L (5-34); Albumin 3.7 g/dL (3.4-4.8); Alkaline Phosphatase 110 U/L (40-150); Anion Gap 10 mmol/L (10-20); BUN (Urea Nitrogen) 14 mg/dL (9.8-20.1); Bilirubin, Total 0.2 mg/dL (0.2-1.2); Calc. Creatinine Clearance 0 mL/min (70-130); Calcium 8.8 mg/dL (7.8-10.44); Carbon Dioxide 27 mmol/L (23-31); Chloride 103 mmol/L (98-107); Estimated GFR-MDRD Greater than 90; Globulin 2.8 g/dL (2.4-3.5); Glucose 134 mg/dL (83-110); Protein, Total 6.5 g/dL (6.0-8.3); Sodium 136 mmol/L (136-145)
--- NOTE | 2017-10-29 18:43 | RAD ---
PORTABLE CHEST: HISTORY: Chest pain. COMPARISON: 08/23/2017 FINDINGS: The lung rios are clear. No evidence of infiltrate. Heart and mediastinum unremarkable. IMPRESSION: No acute lung process. POS: [facility]
--- NOTE | 2017-10-29 20:33 | CT ---
CT ANGIO CHEST WITH CONTRAST: INDICATIONS: Dyspnea. Chest pain. History of lung cancer. COMPARISON: Chest CT from 08/18/2017. TECHNIQUE: Multiple axial tomograms obtained through the chest following pulmonary angio protocol with multiplan ar reconstruction and 3D post processing. FINDINGS: The pulmonary arteries show adequate opacification. No evidence of pulmonary embolus. Images through the lung rios reveal confluent opacity in the left upper lobe, adjacent to the fissu re. This was present on the prior exam. There is associated parenchymal calcification at this site. This area of nodular opacity measures 2 cm in the axial plane. There is associated peribronchial s oft tissue thickening in the left perihilar region and parenchymal stranding extending into the left upper lobe, along the fissure, to this nodular opacity. This is at the site of a previously describe d infiltrative process. The lungs are otherwise clear today. The mediastinum again shows nonspecific lymph nodes, which do not appear significantly changed from 0 08/18/2017. IMPRESSION: 1. No evidence of pulmonary embolus. 2. Peribronchial opacity and parenchymal opacity in the left upper lobe, along the fissure. There i s some associated calcification. This may represent scarring or post radiation change. Recurrent ne oplasm or infiltrate not excluded. 3. Nonspecific mediastinal adenopathy appears stable. POS: [facility]
[2017-10-29] MEDS ORDERED: Albuterol Sulfate 2.5 mg/3 ml Neb ONE (21:31)
[2017-10-29 22:17] LABS: Troponin I Less than 0.010 ng/mL (< 0.028)
== END 2017-10-29 23:15 | disposition home or self-care (01) ==
LOC: ERS 17:23
DX: R07.89 Other chest pain (principal); E11.9 Type 2 diabetes mellitus without complications; I10 Essential (primary) hypertension; I48.91 Unspecified atrial fibrillation; I25.10 Atherosclerotic heart disease of native coronary artery without angina pectoris; J44.9 Chronic obstructive pulmonary disease, unspecified; Z87.891 Personal history of nicotine dependence; Z79.82 Long term (current) use of aspirin
CPT/HCPCS: 36415; 71045; 71275; 80053; 82553; 83880; 84484; 85025; 85379; 93005; 94640; 96360; J7611

== ENCOUNTER 2017-12-14 12:14 | Outpatient (CLI) | payer MEDICARE ==
--- NOTE | 2017-12-14 14:29 | RAD ---
TWO VIEWS CHEST: Date: 12-14-17 Comparison: 10-29-17 History: Dyspnea. FINDINGS: There is no pneumothorax. Heart and mediastinal contours are stable. Loop recorder overlies the media l left lung base. No focal consolidation or alveolar edema. No pneumothorax or pleural fluid is noted. There is streaky nonspecific increased density within the inferior left base on frontal imaging, nons pecific. Underlying mass lesion and/or infectious pneumonitis cannot be excluded. IMPRESSION: Hazy nodular density suggested in left base inferiorly. This may reflect change associated with mass lesion and/or infiltrate. Of note, 10-29-17 CT examination demonstrates abnormality in this region. Re commend further assessment via follow up chest CT in 6 weeks - 3 months for further assessment. Code T POS: [facility]
== END 2017-12-14 12:15 | disposition home or self-care (01) ==
LOC: RAD 12:14
PROVIDERS: ATTEND Internal Medicine Pulmonary Disease
DX: R06.00 Dyspnea, unspecified (principal); J98.4 Other disorders of lung
CPT/HCPCS: 71046

== ENCOUNTER 2017-12-22 14:06 | Inpatient (IN) | payer MEDICARE ==
[2017-12-22] MEDS ORDERED: Albuterol Sulfate 2.5 mg/0.5 ml Neb ONE (14:33)
[2017-12-22] MEDS ORDERED: Dexamethasone 4 mg/ml Vial ONE (14:40)
[2017-12-22 14:50] LABS: #Basophils 0.1 thou/uL (0.0-0.2); #Eosinphils 0.2 thou/uL (0.0-0.7); #Lymphocytes 3.4 thou/uL (1.20-3.40); #Monocytes 0.6 thou/uL (0.11-0.59); #Neutrophils 7.8 thou/uL (1.40-6.50); %Basophils 1.2 % (0.0-1.0); %Eosinophils 1.6 % (0.0-10.0); %Monocytes 5.1 % (0.0-10.0); %Neutrophils 64.1 % (42.0-75.0); Hemoglobin 14.5 g/dL (12.0-16.0); Mean Corpuscular HGB CONC 33.7 g/dL (32.0-36.0); Mean Corpuscular Volume 94.8 fL (78.0-98.0); Mean Platelet Volume 7.3 fL (7.4-10.4); Platelet Count 274 thou/uL (130-400); RBC Distribution Width 12.9 % (11.5-14.5); Red Blood Cell (RBC) Count 4.53 mill/uL (4.20-5.40); White Blood Cell (WBC) Count 12.2 thou/uL (4.8-10.8)
[2017-12-22] MEDS ORDERED: Magnesium Sulfate 2 GM in Sodium Chloride 0.9% 100 ML IVPB SCH (15:00)
[2017-12-22 15:09] LABS: ALT (SGPT) 20 U/L (8-55); AST (SGOT) 20 U/L (5-34); Albumin 3.6 g/dL (3.4-4.8); Alkaline Phosphatase 119 U/L (40-150); Anion Gap 16 mmol/L (10-20); BUN (Urea Nitrogen) 18 mg/dL (9.8-20.1); Bilirubin, Total 0.2 mg/dL (0.2-1.2); CK (CPK) 30 U/L (29-168); Calc. Creatinine Clearance 0 mL/min (70-130); Calcium 9.1 mg/dL (7.8-10.44); Carbon Dioxide 26 mmol/L (23-31); Chloride 101 mmol/L (98-107); Estimated GFR-MDRD 81; Globulin 3.4 g/dL (2.4-3.5); Glucose 188 mg/dL (83-110); Lipase 72 U/L (8-78); Potassium 4.2 mmol/L (3.5-5.1); Sodium 139 mmol/L (136-145)
[2017-12-22 15:13] LABS: CKMB 0.9 ng/mL (0-6.6); Troponin I 0.015 ng/mL (< 0.028)
--- NOTE | 2017-12-22 15:23 | RAD ---
RADIOGRAPH CHEST 1 VIEW: HISTORY: 72-year-old female with dyspnea. FINDINGS: There is no air space density, pulmonary edema, or pneumothorax. The lateral costophrenic angles are sharp. IMPRESSION: No acute pulmonary findings. jn [] POS: [facility]
[2017-12-22 15:39] LABS: Actual Bicarbonate (HCO3a) 30.6 mEq/L (22-28); Base Excess (BEa) 4.9 mEq/L (-2.0 to +3.0); CO2 Tension 49.4 mmHg (35.0-45.0); Hematocrit-ABG 43.1 % (36.0-47.0); Hemoglobin (Hb) 13.4 g/dL (12.0-16.0); O2 Tension (PaO2) 78.7 mmHg (> 70.0); pH, Arterial 7.41 (7.35-7.45)
[2017-12-22 15:40] LABS: Analyzer IN Cardio ER; Calcium, Ionized 1.2 mmol/L (1.12-1.30); Puncture Site L.R.
[2017-12-22 17:47] VITALS: BMI 34.7
[2017-12-22] MEDS ORDERED: Ondansetron ODT 4 MG TAB SL PRN (18:00)
[2017-12-22] MEDS ORDERED: Ondansetron HCl/PF 4 MG/2 ML Vial IVP PRN ×2 (18:00→18:53)
[2017-12-22] MEDS ORDERED: Senokot 8.6 MG TAB PO PRN (18:53)
[2017-12-22] MEDS ORDERED: Dextrose 5% in Water 1,000 ML IV PRN (18:53)
[2017-12-22] MEDS ORDERED: Mag-Al 1200 mg/1200 mg/30 ML UDCUP PO PRN (18:53)
[2017-12-22] MEDS ORDERED: Ondansetron ODT 4 MG TAB PO PRN (18:53)
[2017-12-22] MEDS ORDERED: Insulin Regular 300 UNITS/3 ML VIAL SC PRN (18:53)
[2017-12-22] MEDS ORDERED: Dextrose 50% Abboject 50 ML SYRINGE SLOW IVP PRN (18:53)
[2017-12-22] MEDS ORDERED: Calcium Carbonate 500 MG ChewTAB PO PRN (18:53)
--- NOTE | 2017-12-22 18:55 | HP ---
DATE OF ADMISSION: 12/22/2017 PRIMARY CARE PHYSICIAN: Dr. Chery. PRIMARY BLOCKING MACHINE OPERATOR: Dr. Moran. CHIEF COMPLAINT: Shortness of breath. HISTORY OF PRESENT ILLNESS: The patient is a 72-year-old white female with COPD , history of lung malignancy and chronic respiratory failure, on home oxygen, presented to the emergency room with worsening shortness of breath over the last 2 weeks. The patient was evaluated by Dr. Moran last week and was started on doxycycline. Her symptoms progressively got worse for which she presented to the emergency room. Patient has been short of breath on minimal exertion. She also has cough productive of thick whitish phlegm. She has persistent wheezing along with generalized weakness and poor appetite. She has been feeling lightheaded and dizzy; however, denies any syncope. No chest pain, palpitations, focal neurologic deficit or fever reported. PAST MEDICAL HISTORY: 1. COPD. 2. Chronic respiratory failure on home oxygen. 3. History of lung cancer. 4. Diabetes mellitus type 2. 5. Hypertension. 6. Hyperlipidemia. 7. Paroxysmal atrial fibrillation on anticoagulation. 8. Hypothyroidism. PAST SURGICAL HISTORY: 1. Left lobectomy. 2. Cardiac ablation. 3. Thoracentesis. 4. Carpal tunnel surgery. 5. Hysterectomy. 6. Cholecystectomy. ALLERGIES: No known drug allergies. CURRENT HOME MEDICATIONS: 1. Doxycycline 100 mg twice a day started on 12/14/2017. 2. Glipizide extended release 5 mg daily. 3. Lisinopril 20 mg twice a day. 4. Bystolic 5 mg daily. 5. Crestor 40 mg daily. 6. Sulfasalazine 1000 mg b.i.d. 7. Xarelto 20 mg daily. 8. Primidone 250 mg 3 times a day. 9. Lasix 80 mg b.i.d. 10. Levothyroxine 25 mcg daily. SOCIAL HISTORY: Patient is a former smoker. No alcohol or drug use. Currently lives at home with her family. She makes her own decision with the help of her family. She is FULL CODE. FAMILY HISTORY: Negative for heart disease. REVIEW OF SYSTEMS: The following complete review of systems was negative, unless otherwise mentioned in the HPI or below: Constitutional: Weight loss or gain, ability to conduct usual activities. Skin: Rash, itching. Eyes: Double vision, pain. ENT/Mouth: Nose bleeding, neck stiffness, pain, tenderness. Cardiovascular: Palpitations, dyspnea on exertion, orthopnea. Respiratory: Shortness of breath, wheezing, cough, hemoptysis, fever or night sweats. Gastrointestinal: Poor appetite, abdominal pain, heartburn, nausea, vomiting, constipation, or diarrhea. Genitourinary: Urgency, frequency, dysuria, nocturia. Musculoskeletal: Pain, swelling. Neurologic/Psychiatric: Anxiety, depression. Allergy/Immunologic: Skin rash, bleeding tendency. PHYSICAL EXAMINATION: VITAL SIGNS: In the emergency room showed temperature 97.8, respirations 20, pulse rate of 69, blood pressure 158/75 with O2 saturation of 94% on 2 liter nasal cannula. GENERAL: A 72-year-old female in respiratory distress, able to complete short sentences. HEENT: Head atraumatic, normocephalic. Sclerae are anicteric. Moist mucous membrane, no oral lesion. NECK: Supple, no JVD, no carotid bruit. LUNGS: Showed diffuse expiratory wheezing along with scattered rales at bases. The patient is in mild to moderate respiratory distress with accessory muscle use. HEART: S1 and S2 present. Regular rate and rhythm. No murmur, rubs, or gallops appreciated. ABDOMEN: Soft. Bowel sounds present. EXTREMITIES: Trace edema in bilateral lower extremities. SKIN: Warm and dry. LYMPH NODES: No palpable lymph nodes in the neck. PERIPHERAL VASCULAR: Radial pulses palpable bilaterally. MUSCULOSKELETAL: No joint swelling tenderness. LABORATORY FINDINGS AND IMAGING DATA: 1. CBC showed WBC 12.2 with hemoglobin 14.5, hematocrit 43 with platelet count 274. 2. ABG showed pH 7.41, pCO2 of 49.4, pO2 78.7, bicarbonate 30.6. 3. Chemistries showed sodium 139, potassium 4.2, chloride 101, bicarb 26, BUN 18, creatinine 0.71. 4. Troponins were negative. 5. BNP 92.5. Lactic acid 1.7. 6. Chest x-ray by my review showed questionable right lower lobe infiltrate. 7. EKG by my review showed sinus rhythm with nonspecific ST-T wave changes. IMPRESSION: 1. Chronic obstructive pulmonary disease exacerbation with suspected right lower lobe pneumonia ?Pneumococcal. Please note that patient has failed outpatient antibiotics. 2. Chronic respiratory failure on home oxygen. 3. Diabetes mellitus type 2. 4. Hypertension. 5. History of lung cancer, status post lobectomy. 6. Paroxysmal atrial fibrillation on anticoagulation. 7. Hypothyroidism. 8. Benign essential tremors. 9. Obesity with body mass index 34.8. 10. Chronic kidney disease stage 2. 11. Leukocytosis, probably secondary to suspected pneumonia. 12. Deep venous thrombosis prophylaxis. The patient already on anticoagulation. 12. Gastrointestinal prophylaxis. PLAN: The patient will be monitored on the medical floor. We will consult Dr. Moran. Patient was on doxycycline. We will start her on cefepime with levofloxacin. We will also give her low dose steroid. Continue oxygen and nebulizer treatments. We will resume all of her home medications including anticoagulation. We will start her on sliding scale. Plan of care was discussed with the patient in detail. She stated understanding. HAILE
[2017-12-22] MEDS ORDERED: PROVENTIL INHALER 6.7 G (200 INHALATIONS) INH PRN (20:35)
[2017-12-22] MEDS ORDERED: Dexamethasone 10 MG/ML VIAL SLOW IVP SCH (21:00)
[2017-12-22] MEDS: Cefepime 1 GM in Sodium Chloride 0.9% 100 ML IVPB SCH (21:14)
[2017-12-22] MEDS: Lisinopril 20 MG TAB PO SCH (21:15)
[2017-12-22] MEDS: Docusate 100 MG CAP PO SCH (21:17)
[2017-12-22] MEDS: Famotidine 20 MG TAB PO SCH (21:17)
[2017-12-22] MEDS: Insulin Regular 300 UNITS/3 ML VIAL SC PRN (21:35)
[2017-12-22] MEDS: Primidone 250 MG TAB PO SCH (21:38)
[2017-12-22] MEDS: sulfaSALAzine 500 MG TAB PO SCH (21:39)
[2017-12-23] MEDS: Acetaminophen 325 MG TAB PO PRN ×2 (00:06→04:16)
[2017-12-23] MEDS: hydrALAZINE 20 MG/ML VIAL SLOW IVP PRN ×2 (00:56→04:07)
[2017-12-23] MEDS ORDERED: Diabetic Tussin 200 MG/10 ML UDCUP PO PRN (02:33)
[2017-12-23 04:35] LABS: #Lymphocytes 2.1 thou/uL (1.20-3.40); #Monocytes 0.4 thou/uL (0.11-0.59); #Neutrophils 6.7 thou/uL (1.40-6.50); %Basophils 0.1 % (0.0-1.0); %Eosinophils 0.2 % (0.0-10.0); %Lymphocytes 22.8 % (21.0-51.0); %Monocytes 4.6 % (0.0-10.0); %Neutrophils 72.3 % (42.0-75.0); Hemoglobin 12.7 g/dL (12.0-16.0); Mean Corpuscular HGB CONC 33.3 g/dL (32.0-36.0); Mean Corpuscular Hemoglobin 31.6 pg (27.0-31.0); Mean Corpuscular Volume 94.9 fL (78.0-98.0); Platelet Count 252 thou/uL (130-400); RBC Distribution Width 12.8 % (11.5-14.5); Red Blood Cell (RBC) Count 4.03 mill/uL (4.20-5.40); White Blood Cell (WBC) Count 9.2 thou/uL (4.8-10.8)
[2017-12-23 04:58] LABS: Anion Gap 10 mmol/L (10-20); BUN (Urea Nitrogen) 18 mg/dL (9.8-20.1); Calc. Creatinine Clearance 108 mL/min (70-130); Calcium 9.2 mg/dL (7.8-10.44); Carbon Dioxide 28 mmol/L (23-31); Chloride 103 mmol/L (98-107); Estimated GFR-MDRD 87; Glucose 228 mg/dL (83-110); Potassium 4.3 mmol/L (3.5-5.1); Sodium 137 mmol/L (136-145)
[2017-12-23] MEDS: Levothyroxine Sodium 25 MCG TAB PO SCH ×2 (05:04→05:11)
[2017-12-23] MEDS: Docusate 100 MG CAP PO SCH ×2 (09:05→21:22)
[2017-12-23] MEDS: Cefepime 1 GM in Sodium Chloride 0.9% 100 ML IVPB SCH (09:05)
[2017-12-23] MEDS: glipiZIDE 5 MG TAB PO SCH (09:05)
[2017-12-23] MEDS: Furosemide 80 MG TAB PO SCH ×3 (09:06→15:34)
[2017-12-23] MEDS: Lisinopril 20 MG TAB PO SCH ×2 (09:06→21:21)
[2017-12-23] MEDS: Primidone 250 MG TAB PO SCH ×3 (09:06→21:23)
[2017-12-23] MEDS: Nebivolol HCl 5 MG TAB PO SCH (09:06)
[2017-12-23] MEDS: Rosuvastatin 20 MG TAB PO SCH (09:06)
[2017-12-23] MEDS: Famotidine 20 MG TAB PO SCH ×2 (09:06→21:22)
[2017-12-23] MEDS: Rivaroxaban 10 MG TAB PO SCH (09:06)
[2017-12-23] MEDS: sulfaSALAzine 500 MG TAB PO SCH ×2 (10:13→21:19)
--- NOTE | 2017-12-23 12:48 | PDOC.PN ---
- Subjective Encounter Start Date: 12/23/17 Encounter Start Time: 08:30 Patient seen and examined for COPD exacerbation. Feels better. No new complaints. No overnight events - Objective Resuscitation Status: Resuscitation Status FULL:Full Resuscitation MAR Reviewed: Yes Vital Signs & Weight: Vital Signs (12 hours) Temp Pulse Resp BP BP BP BP 12/23/17 12:00 98.0 F 87 18 150/68 H 12/23/17 11:45 88 20 12/23/17 09:06 169/72 H 12/23/17 08:00 98.0 F 108 H 20 12/23/17 07:57 98.0 F 108 H 20 169/72 H 12/23/17 07:26 12/23/17 07:24 88 24 H 12/23/17 05:06 115 H 141/76 H 12/23/17 04:53 107 H 22 H 12/23/17 04:45 181/79 H 12/23/17 04:07 104 H 195/80 H 12/23/17 04:00 98.2 F 104 H 20 195/80 H 12/23/17 02:13 99 22 H 12/23/17 00:56 79 190/70 H Pulse Ox 12/23/17 12:00 95 12/23/17 11:45 12/23/17 09:06 12/23/17 08:00 94 L 12/23/17 07:57 94 L 12/23/17 07:26 96 12/23/17 07:24 96 12/23/17 05:06 12/23/17 04:53 97 12/23/17 04:45 12/23/17 04:07 12/23/17 04:00 95 12/23/17 02:13 97 12/23/17 00:56 I&O: 12/22/17 12/23/17 12/24/17 06:59 06:59 06:59 Intake Total 450 Balance 450 Result Diagrams: 12/23/17 04:00 12/23/17 04:00 Additional Labs: Accuchecks 12/23/17 12/23/17 12/22/17 12:07 05:54 20:56 POC Glucose 174 H 169 H 245 H Phys Exam - Physical Examination Constitutional: NAD Respiratory: no rhonchi, wheezing present (scat) Scat bibasilar rales Cardiovascular: RRR, no rub Gastrointestinal: soft, non-tender, positive bowel sounds Musculoskeletal: no edema Neurological: moves all 4 limbs Dx/Plan - Plan IMPRESSION: 1. Chronic obstructive pulmonary disease exacerbation with suspected right lower lobe pneumonia ?Pneumococcal. Cont O2, IV Solumedrol, Levaquin and Nebs Q4hr 2. Chronic respiratory failure on home oxygen. 3. Diabetes mellitus type 2. Cont sliding scale with Glipizide, ACHS 4. Hypertension. Cont Lisinopril, Bystolic and Lasix 5. History of lung cancer, status post lobectomy. 6. Paroxysmal atrial fibrillation on anticoagulation. Cont Xarelto with Bystolic 7. Hypothyroidism. Cont Levothyroxine 8. Benign essential tremors. Cont Primidone 9. Obesity with body mass index 34.8. 10. Chronic kidney disease stage 2. 11. HLD. Cont statins Review of Systems - Review of Systems Respiratory: Cough, Dry, SOB with Excertion, Wheezing. negative: Shortness of Breath, Hemoptysis, Pleuritic Pain, Sputum Cardiovascular: negative: chest pain, palpitations, orthopnea, paroxysmal nocturnal dyspnea, edema, light headedness, other - Medications/Allergies Allergies/Adverse Reactions: Allergies Allergy/AdvReac Type Severity Reaction Status Date / Time No Known Allergies Allergy Verified 08/23/17 22:43 Medications: Current Medications Acetaminophen (Tylenol) 650 mg PO Q4H PRN PRN Reason: Headache/Fever or Pain Last Admin: 12/23/17 04:16 Dose: 650 mg Al Hydroxide/Mg Hydroxide (Maalox) 30 ml PO Q6H PRN PRN Reason: Heartburn or Indigestion Last Admin: 12/23/17 05:11 Dose: 30 ml Albuterol Sulfate (Proventil Hfa) 2 puff INH Q6HR PRN PRN Reason: SOB &/or Wheezing Albuterol/Ipratropium (Duoneb) 3 ml NEB P5BT-CP PRN PRN Reason: SOB &/or Wheezing Last Admin: 12/23/17 04:53 Dose: 3 ml Albuterol/Ipratropium (Duoneb) 3 ml NEB X4AR-TE STEPHEN Last Admin: 12/23/17 11:45 Dose: 3 ml Aspirin (Aspirin Chewable) 81 mg PO DAILY STEPHEN Last Admin: 12/23/17 09:07 Dose: 81 mg Calcium Carbonate (Tums) 1,000 mg PO Q4H PRN PRN Reason: Heartburn or Indigestion Dextrose/Water (Dextrose 50%) 25 gm SLOW IVP PRN PRN PRN Reason: Hypoglycemia Docusate Sodium (Colace) 100 mg PO BID [facility] Last Admin: 12/23/17 09:05 Dose: 100 mg Famotidine (Pepcid) 20 mg PO BID [facility] Last Admin: 12/23/17 09:06 Dose: 20 mg Furosemide (Lasix) 80 mg PO 0900,1400 [facility] Last Admin: 12/23/17 09:06 Dose: 80 mg Glipizide (Glucotrol) 5 mg PO DAILY-AC [facility] Last Admin: 12/23/17 09:05 Dose: 5 mg Glucagon (Glucagon) 1 mg IM PRN PRN PRN Reason: Hypoglycemia Guaifenesin (Robitussin Sf) 200 mg PO Q6H PRN PRN Reason: Cough Last Admin: 12/23/17 04:11 Dose: 200 mg Hydralazine HCl (Apresoline) 10 mg SLOW IVP Q4H PRN PRN Reason: SBP > 180 Last Admin: 12/23/17 04:07 Dose: 10 mg Cefepime HCl 1 gm/ Sodium (Chloride) 100 mls @ 200 mls/hr IVPB Q12HR [facility] Last Admin: 12/23/17 09:05 Dose: 100 mls Dextrose/Water (D5w) 1,000 mls @ 0 mls/hr IV .Q0M PRN; As Directed PRN Reason: Hypoglycemia Levofloxacin 500 mg/ Device 100 mls @ 100 mls/hr IVPB 1500 STEPHEN Insulin Human Regular (Humulin R) 0 units SC .MILD SLIDING SCALE PRN PRN Reason: Mild Correctional Scale Insulin Human Regular (Humulin R) 0 units SC .BEDTIME SLIDING SC PRN PRN Reason: Bedtime Correctional Scale Last Admin: 12/22/17 21:35 Dose: 4 unit Levothyroxine Sodium (Synthroid) 25 mcg PO 0600 [facility] Last Admin: 12/23/17 05:11 Dose: 25 mcg Lisinopril (Zestril) 20 mg PO BID [facility] Last Admin: 12/23/17 09:06 Dose: 20 mg Methylprednisolone Sodium Succinate (Solu-Medrol) 20 mg IVP Q8HR [facility] Last Admin: 12/23/17 05:04 Dose: 20 mg Nebivolol (Bystolic) 5 mg PO DAILY [facility] Last Admin: 12/23/17 09:06 Dose: 5 mg Ondansetron HCl (Zofran Odt) 4 mg PO Q6H PRN PRN Reason: Nausea/Vomiting Ondansetron HCl (Zofran) 4 mg IVP Q6H PRN PRN Reason: Nausea/Vomiting Primidone (Mysoline) 250 mg PO TID [facility] Last Admin: 12/23/17 09:06 Dose: 250 mg Rivaroxaban (Xarelto) 20 mg PO DAILY [facility] Last Admin: 12/23/17 09:06 Dose: 20 mg Rosuvastatin Calcium (Crestor) 40 mg PO DAILY [facility] Last Admin: 12/23/17 09:06 Dose: 40 mg Senna (Senokot) 2 tab PO HSPRN PRN PRN Reason: Constipation Sulfasalazine (Azulfidine) 500 mg PO BID [facility] Last Admin: 12/23/17 10:13 Dose: 500 mg
--- NOTE | 2017-12-23 19:46 | CON ---
DATE OF CONSULTATION: 12/23/2017 HISTORY OF PRESENT ILLNESS: Ms. Salinas is a very pleasant 72-year-old female , who presented just to the emergency room with shortness of breath, consulted today for this complaint. She is followed by Dr. Moran for COPD. She also is followed by Dr. Nixon and has been followed by both for a long time. She has a history of 2 weeks of progressive shortness of breath. She is contemplating moving [place], live closer to her daughter. She decided to come to the hospital see if she gets some help. PAST MEDICAL HISTORY: 1. Remarkable for COPD on oxygen at home. 2. History of lung cancer. 3. Diabetes. 4. Hypertension. 5. Lipid disorder. 6. History of atrial fibrillation, for which she has seen Dr. Nixon. 7. History of thoracentesis in August, which showed no malignant cells. 8. Status post lobectomy for adenocarcinoma. 9. Status post hysterectomy. 10. Status post cholecystectomy. 11. History of carpal tunnel surgery. 12. History of atrial fibrillation ablation. SOCIAL HISTORY: She is a nonsmoker, nondrinker, nondrug user. She has distant history of smoking. FAMILY HISTORY: Negative for lung disease in early age. ALLERGIES: She has no reported drug allergies. REVIEW OF SYSTEMS: Ten-point review of system completed, otherwise negative. PHYSICAL EXAMINATION: GENERAL: She says she is feeling better. VITAL SIGNS: She is afebrile, heart rate 80, respiratory rate 24, oximetry is 95 on 2 liters, blood pressure 150/68. HEENT: Pupils are equal. Sclerae is anicteric. NECK: Supple. LUNGS: Clear. HEART: Regular rhythm. S1 and S2 are normal. ABDOMEN: Soft and nontender. EXTREMITIES: Without clubbing, cyanosis, or edema. LABORATORY DATA: White count 9.2, hemoglobin 12.7, platelets 252. Sodium 137, potassium 4.3, chloride 103, bicarbonate 20, BUN 18, creatinine 0.67. Chest radiograph showed no infiltrates. IMPRESSION: 1. Chronic obstructive pulmonary disease exacerbation. 2. Chronic respiratory failure on home oxygen. She appears to be clinically improved. She will notify Dr. Moran of her admission in the morning. This is a 50 minute consult with greater than 50% of time spent on unit with coordination of care. [facility]
[2017-12-23 21:18] LABS: Glucose Accucheck Confirmation 229 mg/dl (83-110)
[2017-12-23] MEDS: Cefdinir 300 MG CAP PO SCH (21:22)
[2017-12-23] MEDS: Insulin Regular 300 UNITS/3 ML VIAL SC PRN (21:25)
[2017-12-24 03:44] VITALS: TEMP 97.6
[2017-12-24] MEDS: Levothyroxine Sodium 25 MCG TAB PO SCH (05:28)
[2017-12-24] MEDS ORDERED: predniSONE 20 MG TAB PO SCH (08:00)
[2017-12-24] MEDS: Docusate 100 MG CAP PO SCH (08:23)
[2017-12-24] MEDS: glipiZIDE 5 MG TAB PO SCH (08:23)
[2017-12-24] MEDS: Lisinopril 20 MG TAB PO SCH (08:24)
[2017-12-24] MEDS: Rosuvastatin 20 MG TAB PO SCH (08:24)
[2017-12-24] MEDS: Primidone 250 MG TAB PO SCH (08:24)
[2017-12-24] MEDS: Famotidine 20 MG TAB PO SCH (08:25)
[2017-12-24] MEDS: Cefdinir 300 MG CAP PO SCH (08:25)
[2017-12-24 08:27] VITALS: BP 155/67
[2017-12-24] MEDS: Furosemide 80 MG TAB PO SCH (08:27)
[2017-12-24] MEDS: Nebivolol HCl 5 MG TAB PO SCH (09:03)
[2017-12-24] MEDS: sulfaSALAzine 500 MG TAB PO SCH (09:03)
[2017-12-24] MEDS: Rivaroxaban 10 MG TAB PO SCH (09:04)
--- NOTE | 2017-12-24 09:32 | PRG ---
DATE OF SERVICE: 12/24/2017 This morning she is better. She is eager to go home. PHYSICAL EXAMINATION: VITAL SIGNS: Vital signs are stable, sats are 97 on 2 liters, respirations 18, temperature 97, blood pressure 155/67. CHEST: Chest reveals decreased breath sounds, no wheezing. CARDIAC: Normal S1, S2. ABDOMEN: Soft, no masses. LABORATORY: Chest x-ray was completely normal. Her lab on admission was unremarkable including a chemistry profile. IMPRESSION: 1. Chronic obstructive pulmonary disease exacerbation. 2. Bronchitis. 3. Diabetes. 4. Deconditioned. PLAN: I agree with discharge home. Follow up in the office in several weeks.
--- NOTE | 2017-12-24 11:40 | PQF ---
CLINICAL DOCUMENTATION IMPROVEMENT CLARIFICATION FORM: ICD-10 Updated PLEASE DO AN ADDENDUM TO THE PROGRESS NOTE WITH ANY DOCUMENTATION UPDATES OR ADDITIONS AND CARRY THROUGH TO DC SUMMARY. THANK YOU. DATE: 12/24 ATTN: DR. AL HICKS Please exercise your independent, professional judgment in responding to the clarification form. Clinical indicators are provided on the bottom of this form for your review. Please check appropriate box(s) to clarify if the following diagnosis has been ruled in or ruled out: SUSPECTED RLL PNEUMONIA, ?PNEUMOCOCCAL [ x ] Ruled in diagnosis [ x ] Continue to treat [ ] Resolved [ ] Ruled out diagnosis [ ] Other diagnosis [ ] Unable to determine For continuity of documentation, please document condition throughout progress notes and discharge summary. Thank You. CLINICAL INDICATORS - SIGNS / SYMPTOMS / LABS PHYSICIAN H&P 12/22: LAB & IMAGING DATA: 6) CXR BY MY REVIEW SHOWED QUESTIONABLE RLL INFILTRATE IMPRESSION: 1) COPD EXACERBATION W/SUSPECTED RLL PNEUMONIA, ?PNEUMOCOCCAL. PLEASE NOTE THAT PATIENT HAS FAILED OUTPT TREATMENT. ATTENDING PN 12/23: DX/PLAN: IMPRESSION: 1) COPD EXACERBATION W/SUSPECTED RLL PNEUMONIA, ? PNEUMOCOCCAL WBC: 12.2 (12/22, ADMIT) RISK FACTORS: COPD W/CHRONIC RESPIRATORY FAILURE FAILED OUTPATIENT TREATMENT (H&P) WORSENING SOB OVER LAST 2 WEEKS TREATMENTS: IV ANTIBIOTICS (MAXIPIME & LEVAQUIN 12/22 - ) PO ANTIBIOTIC (OMNICEF 12/23 - PRESENT) PULMONARY CONSULT THANK YOU! [employer] (This form is maintained as a part of the permanent medical record) 2014 [employer]. All Rights Reserved Poonam Scanlon RN, BSN [email or web address] Office: [phone] [facility]
--- NOTE | 2017-12-25 10:27 | DIS ---
DATE OF DISCHARGE: 12/24/2017 DISCHARGE DISPOSITION: Home. FOLLOWUP: Follow up with primary care physician, Dr. Chery in 1 week. Follow up with Dr. Moran in 2-3 weeks. DISCHARGE MEDICATIONS: Omnicef 300 mg twice a day, prednisone 40 mg daily for the next 4 more days. ALLERGIES: No known drug allergies. The patient was seen and examined on the day of discharge, denies any new complaints, shortness of br eath has improved. BRIEF HOSPITAL COURSE: Patient is a 72-year-old female with COPD, history of lung malignancy, and ch ronic respiratory failure on home oxygen, presented to the hospital with shortness of breath. Please refer to the history and physical for further details. The patient was admitted to the hospital with a diagnosis of COPD exacerbation with right lower lobe pneumonia, questionable pneumococcal. She showed good improvement with cefepime and Levaquin. Gucci bush was seen by Pulmonary, Dr. Moran. The patient has been cleared for discharge by Dr. Moran. FINAL DIAGNOSES: 1. Chronic obstructive pulmonary disease exacerbation with right lower lobe pneumonia, questionable pneumococcal. Please note that patient had failed outpatient antibiotics. 2. Chronic respiratory failure on home oxygen. 3. Diabetes mellitus, type 2. 4. Hypertension. 5. History of lung cancer, status post lobectomy. 6. Paroxysmal atrial fibrillation on anticoagulation. 7. Hypothyroidism. 8. Benign essential tremors. 9. Obesity with a BMI 34.8. 10. Chronic kidney disease, stage 2. 11. Leukocytosis, probably secondary to pneumonia. Plan of care was discussed with the patient in detail. She stated understanding.
--- NOTE | 2017-12-29 21:00 | EKG ---
Test Reason : Blood Pressure : / mmHG Vent. Rate : 072 BPM Atrial Rate : 072 BPM P-R Int : 128 ms QRS Dur : 082 ms QT Int : 404 ms P-R-T Axes : 063 015 050 degrees QTc Int : 442 ms Sinus rhythm with marked sinus arrhythmia Anterior infarct , age undetermined Abnormal ECG Confirmed by ADONIS WADE, ALEXANDRE ([id number]), newspaper editor managing RAVEN DAVISON ([id number]) on 12/29/2017 8:59:20 PM Referred By: ADONIS Confirmed By:ALEXANDRE LAMB MD
== END 2017-12-24 12:15 | disposition home or self-care (01) | DRG 190 ==
LOC: ERS 14:06 → ONC 16:02
PROVIDERS: ADMIT Internal Medicine; ATTEND Internal Medicine
DX: J44.1 Chronic obstructive pulmonary disease with (acute) exacerbation (principal); J13 Pneumonia due to Streptococcus pneumoniae; J96.10 Chronic respiratory failure, unspecified whether with hypoxia or hypercapnia; J44.0 Chronic obstructive pulmonary disease with (acute) lower respiratory infection; Z99.81 Dependence on supplemental oxygen; Z85.118 Personal history of other malignant neoplasm of bronchus and lung; E11.22 Type 2 diabetes mellitus with diabetic chronic kidney disease; I12.9 Hypertensive chronic kidney disease with stage 1 through stage 4 chronic kidney disease, or unspecified chronic kidney disease; N18.2 Chronic kidney disease, stage 2 (mild); Z90.2 Acquired absence of lung [part of]; I48.0 Paroxysmal atrial fibrillation; E03.9 Hypothyroidism, unspecified; E78.5 Hyperlipidemia, unspecified; G25.0 Essential tremor; E66.9 Obesity, unspecified; Z87.891 Personal history of nicotine dependence; Z68.34 Body mass index [BMI] 34.0-34.9, adult; Z79.84 Long term (current) use of oral hypoglycemic drugs; Z79.01 Long term (current) use of anticoagulants
CPT/HCPCS: 36415; 36416; 71045; 80048; 80053; 82550; 82553; 82805; 83605; 83690; 83880; 84484; 85025; 87040; 93005; 94640; 94644; 96365; 96366; 96375; J0360; J0692; J1100; J1815; J1956; J2920; J3475; J7050; J7506; J7611; J7620

== ENCOUNTER 2017-12-25 10:05 | Inpatient (IN) | payer MEDICARE ==
--- NOTE | 2017-12-25 10:36 | RAD ---
ONE VIEW CHEST: HISTORY: Dyspnea. COMPARISON: 12/22/2017 FINDINGS: Stable loop recorder in the left hemithorax. Stable blunting of the left costophrenic angle. Enlarg ed cardiac silhouette. The pulmonary vessels and hilum are normal. Stable aeration of the upper viviana gs. No pneumothorax. IMPRESSION: No significant change. POS: [facility]
[2017-12-25 10:54] LABS: Hemoglobin 12.9 g/dL (12.0-16.0); Mean Corpuscular HGB CONC 32.5 g/dL (32.0-36.0); Mean Corpuscular Hemoglobin 31.3 pg (27.0-31.0); Mean Corpuscular Volume 96.4 fL (78.0-98.0); Mean Platelet Volume 7.5 fL (7.4-10.4); Platelet Count 235 thou/uL (130-400); RBC Distribution Width 13.3 % (11.5-14.5); Red Blood Cell (RBC) Count 4.14 mill/uL (4.20-5.40); White Blood Cell (WBC) Count 17.9 thou/uL (4.8-10.8)
[2017-12-25 11:09] LABS: Band 6 % (5-11); Eosinophils 1 % (0-10); Lymphocytes 8 % (21-51); MDiff Complete? YES; Monocytes 2 % (0-10); Neutrophil 83 % (42-75); RBC Morphology Normal
[2017-12-25 11:10] LABS: CKMB 2.4 ng/mL (0-6.6); Troponin I 0.186 ng/mL (< 0.028)
[2017-12-25 12:03] LABS: Albumin 3.7 g/dL (3.4-4.8)
[2017-12-25 12:05] LABS: Chloride 101 mmol/L (98-107); Potassium 4.3 mmol/L (3.5-5.1); Sodium 138 mmol/L (136-145)
[2017-12-25 12:06] LABS: Globulin 3.1 g/dL (2.4-3.5); Glucose 235 mg/dL (83-110); Protein, Total 6.8 g/dL (6.0-8.3)
[2017-12-25 12:07] LABS: Anion Gap 14 mmol/L (10-20); Carbon Dioxide 27 mmol/L (23-31)
[2017-12-25 12:08] LABS: Bilirubin, Total 0.3 mg/dL (0.2-1.2)
[2017-12-25 12:09] LABS: Alkaline Phosphatase 110 U/L (40-150); Calc. Creatinine Clearance 0 mL/min (70-130); Estimated GFR-MDRD 80
[2017-12-25 12:10] LABS: BUN (Urea Nitrogen) 19 mg/dL (9.8-20.1)
[2017-12-25 12:11] LABS: AST (SGOT) 14 U/L (5-34)
[2017-12-25 12:12] LABS: ALT (SGPT) 13 U/L (8-55); CK (CPK) 110 U/L (29-168)
[2017-12-25] MEDS ORDERED: Ondansetron HCl/PF 4 MG/2 ML Vial IVP PRN ×2 (12:44)
[2017-12-25] MEDS ORDERED: traMADol HCl 50 MG TAB PO PRN (12:44)
[2017-12-25] MEDS ORDERED: Senokot 8.6 MG TAB PO PRN ×2 (12:44)
[2017-12-25] MEDS ORDERED: Loratadine 10 MG TAB PO PRN (12:44)
[2017-12-25] MEDS ORDERED: cloNIDine 0.1 MG TAB PO PRN (12:44)
[2017-12-25] MEDS ORDERED: Bisacodyl 5 MG TAB PO PRN (12:44)
[2017-12-25] MEDS ORDERED: Benzonatate 100 MG CAP PO PRN (12:44)
[2017-12-25] MEDS ORDERED: HYDROcodone/Acetaminophen 5/325 mg Tablet PO PRN (12:44)
[2017-12-25] MEDS ORDERED: hydrALAZINE 20 MG/ML VIAL SLOW IVP PRN (12:44)
[2017-12-25] MEDS ORDERED: Diabetic Tussin 200 MG/10 ML UDCUP PO PRN (12:44)
[2017-12-25] MEDS ORDERED: Mag-Al 1200 mg/1200 mg/30 ML UDCUP PO PRN (12:44)
[2017-12-25] MEDS ORDERED: Lorazepam 1 MG TAB PO PRN (12:44)
[2017-12-25] MEDS ORDERED: Calcium Carbonate 500 MG ChewTAB PO PRN (12:44)
[2017-12-25 14:09] LABS: Troponin I 0.155 ng/mL (< 0.028)
[2017-12-25 14:58] VITALS: BMI 35.4
[2017-12-25] MEDS ORDERED: PROVENTIL INHALER 6.7 G (200 INHALATIONS) INH PRN (15:53)
[2017-12-25] MEDS ORDERED: Dextrose 50% Abboject 50 ML SYRINGE SLOW IVP PRN (16:09)
[2017-12-25] MEDS ORDERED: HumaLOG 300 UNITS/3 ML VIAL SC PRN (16:09)
[2017-12-25] MEDS ORDERED: Dextrose 5% in Water 1,000 ML IV PRN (16:09)
[2017-12-25 16:29] LABS: Platelet Count 222 thou/uL (130-400)
[2017-12-25] MEDS ORDERED: Magnesium Sulfate 2 GM in Sodium Chloride 0.9% 100 ML IVPB SCH (16:45)
[2017-12-25 17:00] LABS: Troponin I 0.134 ng/mL (< 0.028)
[2017-12-25] MEDS: Rivaroxaban 10 MG TAB PO SCH (17:37)
[2017-12-25] MEDS: Primidone 250 MG TAB PO SCH (17:37)
[2017-12-25] MEDS: Cefepime 1 GM in Sodium Chloride 0.9% 100 ML IVPB SCH (17:38)
[2017-12-25] MEDS: HumaLOG 300 UNITS/3 ML VIAL SC PRN (17:57)
[2017-12-25] MEDS: Acetaminophen 325 MG TAB PO PRN (18:30)
[2017-12-25] MEDS: Mometasone/Formoterol 120 PUFF INHALER INH SCH (18:44)
--- NOTE | 2017-12-25 19:13 | HP ---
DATE OF ADMISSION: 12/25/2017 PRIMARY CARE PHYSICIAN: Melvin Chery M.D. CHIEF COMPLAINT: Worsening shortness of breath and cough. HISTORY OF PRESENTING ILLNESS: Ms. Salinas is a pleasant 72-year-old female with known history of C OPD as well as chronic respiratory failure on home oxygen, diabetes, hypertension, history of lung ca ncer, status post lobectomy and paroxysmal atrial fibrillation on chronic anticoagulation who present ed to the ER with above-mentioned complaint. History is mainly obtained by the patient herself and e lectronic medical records have been reviewed. The patient was recently admitted to our facility 08/2017 and was actually just discharged yesterday on 12/24/[address] Valles. During this hospitaliz ation, she was evaluated by Pulmonary Medicine, Dr. Moran and was treated for acute COPD exacerbation. She can be discharged home on tapering dose of steroids and oral antibiotics after she was cleared by Pulmonary Medicine for discharge. The patient came back to the ER today reporting that she has felt okay yesterday, but this morning si nce she woke up, she has been having a lot of wheezing, worsening shortness of breath and excessive c ough. She feels poorly and is unable to catch a good breath despite using oxygen at home, so she pre sented to the hospital. Upon presentation to the emergency room, she was somewhat hypoxic. Initial oxygen saturation on pres entation was 96% on room actually. She was tachycardic with a heart rate of 123 when had significant wheezing on physical examination and respiratory distress. She required continuous 1 hour nebulizer of DuoNeb in the ER. Chest x-ray was done which showed left-sided pleural effusion. She was stabil ized and is now being admitted for further evaluation and care for acute respiratory distress, possib le asthmatic bronchitis. The patient has had multiple hospitalizations in our facility this year and in general multiple hospi talizations over the course of last 2 years. PAST MEDICAL HISTORY: 1. Chronic respiratory failure on home oxygen 2 liters. 2. COPD. 3. History of lung cancer, status post lobectomy. 4. Diabetes mellitus type 2. 5. Hypertension. 6. Dyslipidemia. 7. Paroxysmal atrial fibrillation on chronic anticoagulation with Xarelto. 8. Hypothyroidism. PAST SURGICAL HISTORY: 1. Left lobectomy. 2. Cardiac ablation. 3. Thoracentesis. 4. Carpal tunnel surgery. 5. Cholecystectomy. ALLERGIES: No known medication allergies. SOCIAL HISTORY: She is a former smoker. No history of drug or alcohol abuse. Currently, lives at [facility] with family. CODE STATUS: FULL CODE. Discussed with the patient. FAMILY HISTORY: No significant family history of heart disease or stroke. CURRENT HOME MEDICATIONS: Sulfasalazine 500 mg p.o. b.i.d., prednisone tapering dose, glipizide 5 mg daily, rosuvastatin 40 mg daily, Xarelto 20 mg daily, primidone 250 mg p.o. t.i.d., Nebivolol 5 mg d aily, lisinopril 20 mg p.o. b.i.d., levothyroxine 25 mcg daily, Lasix 80 mg p.o. b.i.d., cefdinir 300 mg p.o. b.i.d., aspirin 81 mg daily, and albuterol inhaler. REVIEW OF SYSTEMS: The patient reports that she is not able to catch a good breath and has excessive wheezing and nonstop cough. Other than that, a 12-point review of systems is negative except for th ose mentioned in the history and physical. LABORATORY DATA AND IMAGING DATA: CBC shows WBCs of 17.9, which was 9.21 on 12/23/2017, neutrophils 83%. Serum chemistry, blood sugar of 235, troponin 0.186 with a CK-MB of 2.4 with normal creatinine kinase. BNP of 105. Repeat troponin is 0.155. Chest x-ray done in the emergency room by my review today shows no significant changes from the prior EKG. A 12-lead EKG by my review shows normal sinus rhythm with sinus tachycardia at 103 beats per minute without any acute ST or T-wave changes. PHYSICAL EXAMINATION: VITAL SIGNS: Upon presentation, blood pressure 121/80, pulse of 90, respirations 18, saturating 96% on room air, temperature 97.7. GENERAL: The patient is coughing incessantly and is feeling short of breath and is in mild respirato ry distress without hypoxia. HEENT: Mucous membrane is moist and pink. No oropharyngeal exudate or erythema. Head is normocepha lic, atraumatic. Pupils are equal, reactive to light and accommodation. Extraocular movement intact . NECK: Supple without any lymphadenopathy, JVD or bruit. CHEST: Evaluation showed diffuse wheezing with few basilar crackles. Breath sounds are coarse bilat erally. Rate and rhythm is regular without any murmur, rubs or gallops. ABDOMEN: Soft, nontender and nondistended with positive bowel sounds. EXTREMITIES: Free of any cyanosis, clubbing, or edema. NEUROLOGIC: Nonfocal. SKIN: Free of any rashes or bruises. Feel warm and dry to touch. PSYCHIATRIC: Normal affect. IMPRESSION AND PLAN: 1. Acute respiratory failure without hypoxia. Likely secondary to worsening chronic obstructive pul monary disease with possible bronchitis as the patient is bringing up yellow phlegm. She was started back on IV steroids, IV antibiotics scheduled and p.r.n. nebulizer and reconsult her Pulmonary docto rDr. Moran for further recommendations. Pulmonary toilet, incentive spirometry and p.r.n. medicatio ns will be ordered as well. 2. Elevated troponin, likely secondary to demand ischemia from acute respiratory failure. We will c ontinue to trend serial cardiac enzymes and perform a transthoracic echocardiogram. The patient has had a nuclear medicine stress test done in 06/2017, which was unremarkable. If the echocardiogram sh ows worsening cardiac function or the troponin start to trend upwards, we will consult her cardiologi st, Dr. Nixon. 3. History of left-sided pleural effusion, status post thoracentesis 05/2017. 4. Chronic paroxysmal atrial fibrillation. Continue chronic anticoagulation with Xarelto and rate c ontrol with Bystolic. 5. Chronic respiratory failure on home oxygen. 6. Diabetes mellitus type 2. We will put her on insulin sliding scale aggressive in nature, as well as some long-acting insulin as the patient will be on IV steroids leading to hyperglycemia. 7. Hypertension, currently controlled. We will resume her home medication. 8. History of lung cancer, status post lobectomy. Continue supportive care. 9. History of hypothyroidism. We will restart her home medication. 10. Obesity with body mass index of 34.8. 11. Chronic kidney disease. 12. Leukocytosis either secondary to possible bronchitis versus steroid effect. Continue to monitor . 13. Deep venous thrombosis and gastrointestinal prophylaxes with sequential compression devices and proton pump. 14. Code status: FULL CODE. Discussed with the patient. DISPOSITION: Ms. Salinas is currently being admitted to hospital for acute respiratory failure like ly secondary to worsening COPD with possibility of acute bronchitis which was not treated fully. Est imated length of stay is at least 2-3 midnights. Further management will depend upon her clinical co margaret.
[2017-12-25] MEDS: Lisinopril 20 MG TAB PO SCH (20:55)
[2017-12-25] MEDS: sulfaSALAzine 500 MG TAB PO SCH (20:56)
[2017-12-25] MEDS: guaiFENesin ER 600 MG TAB PO SCH (20:56)
[2017-12-25] MEDS: Famotidine 20 MG TAB PO SCH (20:56)
[2017-12-25] MEDS: Furosemide 80 MG TAB PO SCH (20:56)
--- NOTE | 2017-12-25 22:22 | CON ---
DATE OF CONSULTATION: 12/25/2017 Ms. Salinas is a 71-year-old female who is well known to me, 5 feet 3 inches, 200 pounds, BMI 35, wh o was just discharged yesterday from the hospital stating that she was feeling well. She had no whee zing at the time of discharge, she goes home. There was marked respiratory distress, coughing, and w heezing. She says she is unable to use a Symbicort inhaler. She has a nebulizer that she uses sever al times a day. She has low flow O2. She came in last night with coughing and wheezing, but no feve r or chills. Chest x-ray taken today shows no acute infiltrates. There is some scarring at the left base, but valentina lly no infiltrates. The sputum that she is coughing up was relatively clear. As per the previous note, she can barely wa lk even 20-30 feet without getting markedly short of breath. She is a former smoker. PAST MEDICAL HISTORY: Atrial fibrillation, diabetes, COPD, asthma, respiratory failure, lung cancer, hypertension. PAST SURGICAL HISTORY: Hysterectomy; ablation; cholecystectomy; segmentectomy, left lung. SOCIAL HISTORY: Tobacco, quit smoking 10 days ago. ALCOHOL: None. REVIEW OF SYSTEMS: A 10-point negative. PHYSICAL EXAMINATION: VITAL SIGNS: Sats are 98 on 3 liters, temperature 98, pulse 86, respiration 20, blood pressure is 13 0/59. CHEST: Bilateral wheezing. CARDIAC: Normal S1, S2. No gallops. ABDOMEN: No masses. ASSESSMENT: Severe exacerbation of bronchitis. PLAN: I have added magnesium to her present treatment. Continue neb treatments, continue his Dulera . Continue steroids. Hopefully, can switch over to oral medications tomorrow. Long-term prognosis is guarded. Of 70 minutes, 50% spent in direct patient care.
[2017-12-26] MEDS: Cefepime 1 GM in Sodium Chloride 0.9% 100 ML IVPB SCH (05:52)
[2017-12-26] MEDS: Levothyroxine Sodium 25 MCG TAB PO SCH (05:54)
[2017-12-26 06:00] LABS: #Eosinphils 0.1 thou/uL (0.0-0.7); #Lymphocytes 3.6 thou/uL (1.20-3.40); #Monocytes 0.7 thou/uL (0.11-0.59); #Neutrophils 6.8 thou/uL (1.40-6.50); %Basophils 0.4 % (0.0-1.0); %Eosinophils 0.5 % (0.0-10.0); %Lymphocytes 31.9 % (21.0-51.0); %Monocytes 6.4 % (0.0-10.0); %Neutrophils 60.8 % (42.0-75.0); Hemoglobin 12.6 g/dL (12.0-16.0); Mean Corpuscular HGB CONC 32.1 g/dL (32.0-36.0); Mean Corpuscular Hemoglobin 31.2 pg (27.0-31.0); Mean Corpuscular Volume 97.2 fL (78.0-98.0); Mean Platelet Volume 7.4 fL (7.4-10.4); Platelet Count 240 thou/uL (130-400); RBC Distribution Width 13.1 % (11.5-14.5); Red Blood Cell (RBC) Count 4.02 mill/uL (4.20-5.40); White Blood Cell (WBC) Count 11.1 thou/uL (4.8-10.8)
[2017-12-26 06:12] LABS: Anion Gap 12 mmol/L (10-20); BUN (Urea Nitrogen) 17 mg/dL (9.8-20.1); Calc. Creatinine Clearance 123 mL/min (70-130); Calcium 9.4 mg/dL (7.8-10.44); Carbon Dioxide 30 mmol/L (23-31); Chloride 102 mmol/L (98-107); Estimated GFR-MDRD Greater than 90; Glucose 133 mg/dL (83-110); Potassium 4.5 mmol/L (3.5-5.1); Sodium 139 mmol/L (136-145)
[2017-12-26] MEDS: Mometasone/Formoterol 120 PUFF INHALER INH SCH ×2 (07:33→19:11)
--- NOTE | 2017-12-26 08:20 | PRG ---
DATE OF SERVICE: 12/26/2017 SUBJECTIVE: This morning, she is awake, alert, and responsive, in no distress. She is better. OBJECTIVE: VITAL SIGNS: Sats are 90% on 2 liters, respirations 18, temperature 98, blood pressure is 170/82. CHEST: Decreased breath sounds. Wheezing is much improved. CARDIAC: Normal S1 and S2. No gallops. ABDOMEN: Soft. No masses. LABORATORY DATA: White count 11,000, H and H is unremarkable. Electrolytes are normal. As noted, I do not see any evidence of pneumonia on the x-ray. IMPRESSION: 1. Recurrent chronic obstructive pulmonary disease exacerbation, bronchitis. 2. Major anxiety. PLAN: Switch over to oral antibiotics and oral prednisone. She can be discharged in the next 24-48 hours to home.
[2017-12-26] MEDS: Famotidine 20 MG TAB PO SCH ×2 (09:00→21:27)
[2017-12-26] MEDS: predniSONE 20 MG TAB PO SCH (09:00)
[2017-12-26] MEDS: Furosemide 80 MG TAB PO SCH ×2 (09:00→21:27)
[2017-12-26] MEDS: Doxycycline 100 MG CAP PO SCH ×2 (09:00→21:26)
[2017-12-26] MEDS: glipiZIDE 5 MG TAB PO SCH (09:00)
[2017-12-26] MEDS: guaiFENesin ER 600 MG TAB PO SCH ×2 (09:01→21:26)
[2017-12-26] MEDS: Lisinopril 20 MG TAB PO SCH ×2 (09:01→21:26)
[2017-12-26] MEDS: Nebivolol HCl 5 MG TAB PO SCH (09:02)
[2017-12-26] MEDS: Rosuvastatin 20 MG TAB PO SCH (09:02)
[2017-12-26] MEDS: Primidone 250 MG TAB PO SCH ×3 (09:02→21:26)
[2017-12-26] MEDS: sulfaSALAzine 500 MG TAB PO SCH ×2 (09:23→21:27)
--- NOTE | 2017-12-26 11:35 | PDOC.PN ---
- Subjective Encounter Start Date: 12/26/17 Encounter Start Time: 11:33 Subjective: feels better today but still lots of phlegmn -: easily SOB - Objective MAR Reviewed: Yes Vital Signs & Weight: Vital Signs (12 hours) Temp Pulse Pulse Pulse Resp BP BP 12/26/17 11:25 97.8 F 86 20 12/26/17 10:49 82 16 12/26/17 09:13 91 100 155/64 H 12/26/17 09:01 148/88 H 12/26/17 08:13 98.5 F 86 20 12/26/17 07:29 84 18 12/26/17 05:00 98 F 78 18 12/26/17 00:21 BP BP Pulse Ox Pulse Ox Pulse Ox 12/26/17 11:25 186/80 H 100 12/26/17 10:49 96 12/26/17 09:13 200/74 H 93 L 94 L 12/26/17 09:01 12/26/17 08:13 148/88 H 95 12/26/17 07:29 96 12/26/17 05:00 170/82 H 12/26/17 00:21 92 L Weight Weight 200 lb I&O: 12/25/17 12/26/17 12/27/17 06:59 06:59 06:59 Intake Total 240 Output Total 500 Balance -260 Result Diagrams: 12/26/17 04:50 12/26/17 04:50 Additional Labs: Accuchecks 12/26/17 12/25/17 12/25/17 05:44 20:45 17:11 POC Glucose 122 H 184 H 246 H Microbiology 12/25/17 10:26 Venous blood - Right Hand Blood Culture - Preliminary Specimen has been received and culture in progress. No Growth to date. 12/25/17 10:26 Venous blood - Left Hand Blood Culture - Preliminary Specimen has been received and culture in progress. No Growth to date. labs reviewed Phys Exam - Physical Examination Constitutional: NAD HEENT: PERRLA, moist MMs, sclera anicteric, oral pharynx no lesions Neck: no nodes, no JVD, supple, full ROM Respiratory: no wheezing, no rales, no rhonchi, clear to auscultation bilateral Cardiovascular: RRR, no significant murmur, no rub Gastrointestinal: soft, non-tender, no distention, positive bowel sounds Musculoskeletal: no edema, pulses present Neurological: non-focal, normal sensation, moves all 4 limbs Psychiatric: normal affect, A&O x 3 Skin: no rash Dx/Plan (1) Acute on chronic respiratory failure Code(s): J96.20 - ACUTE AND CHR RESP FAILURE, UNSP W HYPOXIA OR HYPERCAPNIA Status: Acute (2) COPD exacerbation Code(s): J44.1 - CHRONIC OBSTRUCTIVE PULMONARY DISEASE W (ACUTE) EXACERBATION Status: Acute Comment: Continue oxygen, steroids, bronchodilators and antibiotics. (3) Chronic anticoagulation Code(s): Z79.01 - OCULAR CARE AIDE (CURRENT) USE OF ANTICOAGULANTS Status: Chronic (4) Chronic diastolic (congestive) heart failure Code(s): I50.32 - CHRONIC DIASTOLIC (CONGESTIVE) HEART FAILURE Status: Chronic (5) Chronic respiratory failure with hypoxia Code(s): J96.11 - CHRONIC RESPIRATORY FAILURE WITH HYPOXIA Status: Chronic (6) Coronary artery disease Code(s): I25.10 - ATHSCL HEART DISEASE OF [place] CORONARY ARTERY W/O ANG PCTRS Status: Chronic Comment: stable (7) Dyslipidemia Code(s): E78.5 - HYPERLIPIDEMIA, UNSPECIFIED Status: Chronic Comment: continue statin (8) H/O: lung cancer Code(s): Z85.118 - PERSONAL HISTORY OF MALIGNANT NEOPLASM OF BRONCHUS AND LUNG Status: Chronic (9) Hypertension Code(s): I10 - ESSENTIAL (PRIMARY) HYPERTENSION Status: Chronic Comment: Monitor vital signs, titrate antihypertensives (BP low today) (10) Hypothyroidism Code(s): E03.9 - HYPOTHYROIDISM, UNSPECIFIED Status: Chronic Comment: continue thyroid replacement therapy (11) Obesity (BMI 30-39.9) Code(s): E66.9 - OBESITY, UNSPECIFIED Status: Chronic (12) Paroxysmal atrial fibrillation Code(s): I48.0 - PAROXYSMAL ATRIAL FIBRILLATION Status: Chronic Comment: continue anticoagulation (13) Rheumatoid arthritis Code(s): M06.9 - RHEUMATOID ARTHRITIS, UNSPECIFIED Status: Chronic - Plan plan discussed w/ family, continue antibiotics, respiratory therapy, incentive spirometry, out of bed/ambulate, DVT proph w/SCDs care discussed w daughter ilia is in the process of getting new aprmt for pt -: cont current meds as below.changed to PO By PCCM -: clinically better.cont to monirtor -: OT,PT.rehab eval -: home meds as below. HD stable * . Review of Systems - Review of Systems Constitutional: negative: fever, chills, sweats, weakness, malaise, other ENT: negative: Ear Pain, Ear Discharge, Nose Pain, Nose Discharge, Nose Congestion, Mouth Pain, Mouth Swelling, Throat Pain, Throat Swelling, Other Respiratory: negative: Cough, Dry, Shortness of Breath, Hemoptysis, SOB with Excertion, Pleuritic Pain, Sputum, Wheezing Cardiovascular: negative: chest pain, palpitations, orthopnea, paroxysmal nocturnal dyspnea, edema, light headedness, other Gastrointestinal: negative: Nausea, Vomiting, Abdominal Pain, Diarrhea, Constipation, Melena, Hematochezia, Other Genitourinary: negative: Dysuria, Frequency, Incontinence, Hematuria, Retention , Other Musculoskeletal: negative: Neck Pain, Shoulder Pain, Arm Pain, Back Pain, Hand Pain, Leg Pain, Foot Pain, Other Skin: negative: Rash, Lesions, Suleman, Bruising, Other Neurological: negative: Weakness, Numbness, Incoordination, Change in Speech, Confusion, Seizures, Other - Medications/Allergies Allergies/Adverse Reactions: Allergies Allergy/AdvReac Type Severity Reaction Status Date / Time No Known Allergies Allergy Verified 08/23/17 22:43 Medications: Current Medications Acetaminophen (Tylenol) 650 mg PO Q4H PRN PRN Reason: Headache/Fever or Pain Last Admin: 12/25/17 18:30 Dose: 650 mg Hydrocodone Bitart/Acetaminophen ([place] 5/325) 1 tab PO Q4H PRN PRN Reason: Moderate Pain (4-6) Al Hydroxide/Mg Hydroxide (Maalox) 30 ml PO Q6H PRN PRN Reason: Heartburn or Indigestion Albuterol Sulfate (Proventil Hfa) 2 puff INH Q6HR PRN PRN Reason: SOB &/or Wheezing Albuterol/Ipratropium (Duoneb) 3 ml NEB [id number] STEPHEN Last Admin: 12/26/17 10:49 Dose: 3 ml Aspirin (Aspirin Chewable) 81 mg PO DAILY STEPHEN Last Admin: 12/26/17 09:00 Dose: 81 mg Benzonatate (Tessalon) 100 mg PO Q4H PRN PRN Reason: Cough Last Admin: 12/25/17 21:02 Dose: 100 mg Bisacodyl (Dulcolax) 10 mg PO DAILYPRN PRN PRN Reason: Constipation Clonidine (Catapres) 0.1 mg PO Q4H PRN PRN Reason: Systolic BP > 160 Dextrose/Water (Dextrose 50%) 25 gm SLOW IVP PRN PRN PRN Reason: Hypoglycemia Doxycycline Hyclate (Vibramycin) 100 mg PO BID COUNT INCLUDES THE [facility] Last Admin: 12/26/17 09:00 Dose: 100 mg Famotidine (Pepcid) 20 mg PO BID COUNT INCLUDES THE [facility] Last Admin: 12/26/17 09:00 Dose: 20 mg Furosemide (Lasix) 80 mg PO BID COUNT INCLUDES THE [facility] Last Admin: 12/26/17 09:00 Dose: 80 mg Glipizide (Glucotrol) 5 mg PO DAILY COUNT INCLUDES THE [facility] Last Admin: 12/26/17 09:00 Dose: 5 mg Glucagon (Glucagon) 1 mg IM PRN PRN PRN Reason: Hypoglycemia Guaifenesin (Robitussin Sf) 200 mg PO Q4H PRN PRN Reason: Cough Last Admin: 12/25/17 17:37 Dose: 200 mg Guaifenesin (Mucinex) 600 mg PO Q12HR COUNT INCLUDES THE [facility] Last Admin: 12/26/17 09:01 Dose: 600 mg Hydralazine HCl (Apresoline) 10 mg SLOW IVP Q4H PRN PRN Reason: Systolic BP > 170 Dextrose/Water (D5w) 1,000 mls @ 0 mls/hr IV .Q0M PRN PRN Reason: Hypoglycemia Insulin Human Lispro (Humalog) 0 units SC .AGGRESSIVE SLIDING PRN PRN Reason: Aggressive Correctional Scale Last Admin: 12/25/17 17:57 Dose: 6 unit Insulin Human Lispro (Humalog) 0 units SC .BEDTIME SLIDING SC PRN PRN Reason: Bedtime Correctional Scale Levothyroxine Sodium (Synthroid) 25 mcg PO 0600 COUNT INCLUDES THE [facility] Last Admin: 12/26/17 05:54 Dose: 25 mcg Lisinopril (Zestril) 20 mg PO BID COUNT INCLUDES THE [facility] Last Admin: 12/26/17 09:01 Dose: 20 mg Loratadine (Claritin) 10 mg PO DAILYPRN PRN PRN Reason: Sinus Symptoms Lorazepam (Ativan) 1 mg PO Q4H PRN PRN Reason: Anxiety/Agitation Last Admin: 12/25/17 21:02 Dose: 1 mg Mometasone Furoate/Formoterol Fumar (Dulera 200 Mcg/5 Mcg Inhaler) 2 puff INH BID-RT COUNT INCLUDES THE [facility] Last Admin: 12/26/17 07:33 Dose: 2 puff Nebivolol (Bystolic) 5 mg PO DAILY COUNT INCLUDES THE [facility] Last Admin: 12/26/17 09:02 Dose: 5 mg Nitroglycerin (Nitrostat) 0.4 mg SL Q5MIN PRN PRN Reason: Chest Pain Ondansetron HCl (Zofran) 4 mg IVP Q6H PRN PRN Reason: Nausea/Vomiting Prednisone (Prednisone) 40 mg PO QAM-WM COUNT INCLUDES THE [facility] Last Admin: 12/26/17 09:00 Dose: 40 mg Primidone (Mysoline) 250 mg PO TID COUNT INCLUDES THE [facility] Last Admin: 12/26/17 09:02 Dose: 250 mg Rivaroxaban (Xarelto) 20 mg PO 1700 COUNT INCLUDES THE [facility] Last Admin: 12/25/17 17:37 Dose: 20 mg Rosuvastatin Calcium (Crestor) 40 mg PO DAILY COUNT INCLUDES THE [facility] Last Admin: 12/26/17 09:02 Dose: 40 mg Senna (Senokot) 2 tab PO HSPRN PRN PRN Reason: Constipation Sodium Chloride (Flush - Normal Saline) 10 ml IVF Q12HR COUNT INCLUDES THE [facility] Last Admin: 12/26/17 09:03 Dose: 10 ml Sodium Chloride (Flush - Normal Saline) 10 ml IVF PRN PRN PRN Reason: Saline Flush Sulfasalazine (Azulfidine) 500 mg PO BID COUNT INCLUDES THE [facility] Last Admin: 12/26/17 09:23 Dose: 500 mg Tramadol HCl (Ultram) 50 mg PO Q4H PRN PRN Reason: Moderate Pain (4-6)
[2017-12-26] MEDS: HumaLOG 300 UNITS/3 ML VIAL SC PRN ×2 (11:50→18:14)
[2017-12-26] MEDS: Rivaroxaban 10 MG TAB PO SCH (16:45)
[2017-12-27] MEDS: Acetaminophen 325 MG TAB PO PRN ×2 (00:26→20:07)
[2017-12-27] MEDS: Levothyroxine Sodium 25 MCG TAB PO SCH (06:30)
[2017-12-27] MEDS: Mometasone/Formoterol 120 PUFF INHALER INH SCH ×2 (06:52→19:27)
[2017-12-27] MEDS: Primidone 250 MG TAB PO SCH ×3 (08:30→21:15)
[2017-12-27] MEDS: Bisacodyl 5 MG TAB PO PRN ×2 (08:30→21:17)
[2017-12-27] MEDS: predniSONE 20 MG TAB PO SCH (08:31)
[2017-12-27] MEDS: Doxycycline 100 MG CAP PO SCH ×2 (08:31→21:14)
[2017-12-27] MEDS: Lisinopril 20 MG TAB PO SCH ×2 (08:31→21:14)
[2017-12-27] MEDS: Famotidine 20 MG TAB PO SCH ×2 (08:32→21:14)
[2017-12-27] MEDS: guaiFENesin ER 600 MG TAB PO SCH ×2 (08:32→21:14)
[2017-12-27] MEDS: Nebivolol HCl 5 MG TAB PO SCH (08:32)
[2017-12-27] MEDS: Rosuvastatin 20 MG TAB PO SCH (08:33)
[2017-12-27] MEDS: glipiZIDE 5 MG TAB PO SCH (08:33)
[2017-12-27] MEDS: sulfaSALAzine 500 MG TAB PO SCH ×2 (08:34→21:14)
[2017-12-27] MEDS: Furosemide 80 MG TAB PO SCH ×2 (08:34→21:15)
[2017-12-27] MEDS: HumaLOG 300 UNITS/3 ML VIAL SC PRN ×2 (12:39→18:12)
--- NOTE | 2017-12-27 13:53 | PDOC.PN ---
- Subjective Encounter Start Date: 12/27/17 Encounter Start Time: 13:51 Subjective: feels better but still not at baseline.easily short winded -: long conversation about rehab Vs Home.pt reluctant for rehab -: denies any CP.cough better - Objective MAR Reviewed: Yes Vital Signs & Weight: Vital Signs (12 hours) Temp Pulse Resp BP BP Pulse Ox 12/27/17 12:00 98 F 94 18 136/65 94 L 12/27/17 10:58 74 16 96 12/27/17 08:00 98.4 F 84 20 141/66 H 98 12/27/17 06:50 78 16 96 12/27/17 05:45 145/77 H 12/27/17 03:18 98 F 76 20 173/69 H 93 L Weight Weight 191 lb I&O: 12/26/17 12/27/17 12/28/17 06:59 06:59 06:59 Intake Total 240 1260 240 Output Total 500 2200 Balance -260 -940 240 Result Diagrams: 12/26/17 04:50 12/26/17 04:50 Additional Labs: Accuchecks 12/27/17 12/26/17 12/26/17 05:32 20:32 17:18 POC Glucose 125 H 169 H 271 H Microbiology 12/25/17 10:26 Venous blood - Right Hand Blood Culture - Preliminary NO GROWTH AT 48 HOURS 12/25/17 10:26 Venous blood - Left Hand Blood Culture - Preliminary NO GROWTH AT 48 HOURS Laboratory Tests 12/25/17 12/25/17 12/25/17 10:26 10:26 13:30 Troponin I 0.186 H 0.155 H B-Natriuretic Peptide 105.0 H 12/25/17 16:23 Troponin I 0.134 H B-Natriuretic Peptide labs reviewed Phys Exam - Physical Examination Constitutional: NAD HEENT: PERRLA, moist MMs, sclera anicteric, TM's clear, oral pharynx no lesions , 2+ tonsils Neck: no nodes, no JVD, supple, full ROM Respiratory: no rales, no rhonchi, wheezing present, clear to auscultation bilateral Cardiovascular: no significant murmur, no rub, irregular Gastrointestinal: soft, non-tender, no distention, positive bowel sounds Musculoskeletal: no edema, pulses present Neurological: non-focal, normal sensation, moves all 4 limbs Psychiatric: normal affect, A&O x 3 Skin: no rash Dx/Plan (1) Acute on chronic respiratory failure Code(s): J96.20 - ACUTE AND CHR RESP FAILURE, UNSP W HYPOXIA OR HYPERCAPNIA Status: Acute Comment: improving (2) COPD exacerbation Code(s): J44.1 - CHRONIC OBSTRUCTIVE PULMONARY DISEASE W (ACUTE) EXACERBATION Status: Acute Comment: Continue oxygen, steroids, bronchodilators and antibiotics. (3) Chronic anticoagulation Code(s): Z79.01 - [employer] (CURRENT) USE OF ANTICOAGULANTS Status: Chronic (4) Chronic diastolic (congestive) heart failure Code(s): I50.32 - CHRONIC DIASTOLIC (CONGESTIVE) HEART FAILURE Status: Chronic (5) Chronic respiratory failure with hypoxia Code(s): J96.11 - CHRONIC RESPIRATORY FAILURE WITH HYPOXIA Status: Chronic (6) Coronary artery disease Code(s): I25.10 - ATHSCL HEART DISEASE OF [place] CORONARY ARTERY W/O ANG PCTRS Status: Chronic Comment: stable (7) Dyslipidemia Code(s): E78.5 - HYPERLIPIDEMIA, UNSPECIFIED Status: Chronic Comment: continue statin (8) H/O: lung cancer Code(s): Z85.118 - PERSONAL HISTORY OF MALIGNANT NEOPLASM OF BRONCHUS AND LUNG Status: Chronic (9) Hypertension Code(s): I10 - ESSENTIAL (PRIMARY) HYPERTENSION Status: Chronic Comment: Monitor vital signs, titrate antihypertensives (BP low today) (10) Hypothyroidism Code(s): E03.9 - HYPOTHYROIDISM, UNSPECIFIED Status: Chronic Comment: continue thyroid replacement therapy (11) Obesity (BMI 30-39.9) Code(s): E66.9 - OBESITY, UNSPECIFIED Status: Chronic (12) Paroxysmal atrial fibrillation Code(s): I48.0 - PAROXYSMAL ATRIAL FIBRILLATION Status: Chronic Comment: continue anticoagulation (13) Rheumatoid arthritis Code(s): M06.9 - RHEUMATOID ARTHRITIS, UNSPECIFIED Status: Chronic - Plan continue antibiotics, PT/OT, respiratory therapy, incentive spirometry, out of bed/ambulate, DVT proph w/SCDs clinically better.cont steroids,nebs, ABx,O2 ,Dulera -: Ok to transfer to medical. -: Pt finally agreeable for rehab.will arrange.possb DC tomorrow -: reports Mold in home .takes care of two cats-suspect allergy.add Singulair -: cont home meds as below. * . Review of Systems - Review of Systems Constitutional: weakness, malaise. negative: fever, chills, sweats, other Eyes: negative: Pain, Vision Change, Conjunctivae Inflammation, Eyelid Inflammation, Redness, Other ENT: negative: Ear Pain, Ear Discharge, Nose Pain, Nose Discharge, Nose Congestion, Mouth Pain, Mouth Swelling, Throat Pain, Throat Swelling, Other Respiratory: Cough, SOB with Excertion. negative: Dry, Shortness of Breath, Hemoptysis, Pleuritic Pain, Sputum, Wheezing Cardiovascular: negative: chest pain, palpitations, orthopnea, paroxysmal nocturnal dyspnea, edema, light headedness, other Gastrointestinal: negative: Nausea, Vomiting, Abdominal Pain, Diarrhea, Constipation, Melena, Hematochezia, Other Genitourinary: negative: Dysuria, Frequency, Incontinence, Hematuria, Retention , Other Musculoskeletal: negative: Neck Pain, Shoulder Pain, Arm Pain, Back Pain, Hand Pain, Leg Pain, Foot Pain, Other Skin: negative: Rash, Lesions, Suleman, Bruising, Other Neurological: negative: Weakness, Numbness, Incoordination, Change in Speech, Confusion, Seizures, Other - Medications/Allergies Allergies/Adverse Reactions: Allergies Allergy/AdvReac Type Severity Reaction Status Date / Time No Known Allergies Allergy Verified 08/23/17 22:43 Medications: Current Medications Acetaminophen (Tylenol) 650 mg PO Q4H PRN PRN Reason: Headache/Fever or Pain Last Admin: 12/27/17 00:26 Dose: 650 mg Hydrocodone Bitart/Acetaminophen ([place] 5/325) 1 tab PO Q4H PRN PRN Reason: Moderate Pain (4-6) Al Hydroxide/Mg Hydroxide (Maalox) 30 ml PO Q6H PRN PRN Reason: Heartburn or Indigestion Albuterol Sulfate (Proventil Hfa) 2 puff INH Q6HR PRN PRN Reason: SOB &/or Wheezing Albuterol/Ipratropium (Duoneb) 3 ml NEB [id number] [facility] Last Admin: 12/27/17 10:58 Dose: 3 ml Aspirin (Aspirin Chewable) 81 mg PO DAILY [facility] Last Admin: 12/27/17 08:32 Dose: 81 mg Benzonatate (Tessalon) 100 mg PO Q4H PRN PRN Reason: Cough Last Admin: 12/25/17 21:02 Dose: 100 mg Bisacodyl (Dulcolax) 10 mg PO DAILYPRN PRN PRN Reason: Constipation Last Admin: 12/27/17 08:30 Dose: 10 mg Clonidine (Catapres) 0.1 mg PO Q4H PRN PRN Reason: Systolic BP > 160 Last Admin: 12/26/17 11:49 Dose: 0.1 mg Dextrose/Water (Dextrose 50%) 25 gm SLOW IVP PRN PRN PRN Reason: Hypoglycemia Doxycycline Hyclate (Vibramycin) 100 mg PO BID [facility] Last Admin: 12/27/17 08:31 Dose: 100 mg Famotidine (Pepcid) 20 mg PO BID [facility] Last Admin: 12/27/17 08:32 Dose: 20 mg Furosemide (Lasix) 80 mg PO BID [facility] Last Admin: 12/27/17 08:34 Dose: 80 mg Glipizide (Glucotrol) 5 mg PO DAILY [facility] Last Admin: 12/27/17 08:33 Dose: 5 mg Glucagon (Glucagon) 1 mg IM PRN PRN PRN Reason: Hypoglycemia Guaifenesin (Robitussin Sf) 200 mg PO Q4H PRN PRN Reason: Cough Last Admin: 12/25/17 17:37 Dose: 200 mg Guaifenesin (Mucinex) 600 mg PO Q12HR [facility] Last Admin: 12/27/17 08:32 Dose: 600 mg Hydralazine HCl (Apresoline) 10 mg SLOW IVP Q4H PRN PRN Reason: Systolic BP > 170 Last Admin: 12/26/17 22:33 Dose: 10 mg Dextrose/Water (D5w) 1,000 mls @ 0 mls/hr IV .Q0M PRN PRN Reason: Hypoglycemia Insulin Human Lispro (Humalog) 0 units SC .AGGRESSIVE SLIDING PRN PRN Reason: Aggressive Correctional Scale Last Admin: 12/27/17 12:39 Dose: 3 unit Insulin Human Lispro (Humalog) 0 units SC .BEDTIME SLIDING SC PRN PRN Reason: Bedtime Correctional Scale Levothyroxine Sodium (Synthroid) 25 mcg PO 0600 [facility] Last Admin: 12/27/17 06:30 Dose: 25 mcg Lisinopril (Zestril) 20 mg PO BID [facility] Last Admin: 12/27/17 08:31 Dose: 20 mg Loratadine (Claritin) 10 mg PO DAILYPRN PRN PRN Reason: Sinus Symptoms Lorazepam (Ativan) 1 mg PO Q4H PRN PRN Reason: Anxiety/Agitation Last Admin: 12/25/17 21:02 Dose: 1 mg Mometasone Furoate/Formoterol Fumar (Dulera 200 Mcg/5 Mcg Inhaler) 2 puff INH BID-RT [facility] Last Admin: 12/27/17 06:52 Dose: 2 puff Nebivolol (Bystolic) 5 mg PO DAILY [facility] Last Admin: 12/27/17 08:32 Dose: 5 mg Nitroglycerin (Nitrostat) 0.4 mg SL Q5MIN PRN PRN Reason: Chest Pain Ondansetron HCl (Zofran) 4 mg IVP Q6H PRN PRN Reason: Nausea/Vomiting Prednisone (Prednisone) 40 mg PO QAM-WM [facility] Last Admin: 12/27/17 08:31 Dose: 40 mg Primidone (Mysoline) 250 mg PO TID [facility] Last Admin: 12/27/17 08:30 Dose: 250 mg Rivaroxaban (Xarelto) 20 mg PO 1700 [facility] Last Admin: 12/26/17 16:45 Dose: 20 mg Rosuvastatin Calcium (Crestor) 40 mg PO DAILY [facility] Last Admin: 12/27/17 08:33 Dose: 40 mg Senna (Senokot) 2 tab PO HSPRN PRN PRN Reason: Constipation Sodium Chloride (Flush - Normal Saline) 10 ml IVF Q12HR [facility] Last Admin: 12/27/17 08:35 Dose: 10 ml Sodium Chloride (Flush - Normal Saline) 10 ml IVF PRN PRN PRN Reason: Saline Flush Sulfasalazine (Azulfidine) 500 mg PO BID [facility] Last Admin: 12/27/17 08:34 Dose: 500 mg Tramadol HCl (Ultram) 50 mg PO Q4H PRN PRN Reason: Moderate Pain (4-6)
[2017-12-27 16:38] LABS: Hemoglobin 13.8 g/dL (12.0-16.0); Platelet Count 275 thou/uL (130-400)
[2017-12-27] MEDS: Rivaroxaban 10 MG TAB PO SCH (18:12)
[2017-12-27] MEDS ORDERED: Montelukast Sodium 10 mg Tablet PO SCH (21:00)
[2017-12-28] MEDS: Levothyroxine Sodium 25 MCG TAB PO SCH (06:11)
[2017-12-28] MEDS: Mometasone/Formoterol 120 PUFF INHALER INH SCH (07:41)
[2017-12-28] MEDS: Primidone 250 MG TAB PO SCH ×2 (09:12→14:11)
[2017-12-28] MEDS: Doxycycline 100 MG CAP PO SCH (09:12)
[2017-12-28] MEDS: Nebivolol HCl 5 MG TAB PO SCH (09:12)
[2017-12-28] MEDS: Rosuvastatin 20 MG TAB PO SCH (09:12)
[2017-12-28] MEDS: guaiFENesin ER 600 MG TAB PO SCH (09:13)
[2017-12-28] MEDS: predniSONE 20 MG TAB PO SCH (09:13)
[2017-12-28] MEDS: Lisinopril 20 MG TAB PO SCH (09:13)
[2017-12-28] MEDS: sulfaSALAzine 500 MG TAB PO SCH (09:13)
[2017-12-28] MEDS: glipiZIDE 5 MG TAB PO SCH (09:13)
[2017-12-28] MEDS: Famotidine 20 MG TAB PO SCH (09:14)
[2017-12-28] MEDS: Furosemide 80 MG TAB PO SCH (09:14)
[2017-12-28] MEDS: Nitroglycerin 0.4 MG TAB (25 Tab Bottle) SL PRN ×3 (10:03→10:15)
[2017-12-28] MEDS: HumaLOG 300 UNITS/3 ML VIAL SC PRN (11:42)
[2017-12-28 11:45] LABS: CKMB 0.8 ng/mL (0-6.6); Troponin I 0.085 ng/mL (< 0.028)
--- NOTE | 2017-12-28 11:51 | PDOC.PN ---
- Subjective Encounter Start Date: 12/28/17 Encounter Start Time: 08:00 Patient seen and examined. No new complaints. No overnight events - Objective MAR Reviewed: Yes Vital Signs & Weight: Vital Signs (12 hours) Temp Pulse Resp BP Pulse Ox 12/28/17 10:44 91 16 12/28/17 10:17 94 126/55 L 12/28/17 10:14 85 145/70 H 12/28/17 10:09 98 139/69 12/28/17 10:05 92 144/67 H 12/28/17 08:00 97.9 F 75 18 144/67 H 98 12/28/17 07:41 108 H 16 12/28/17 07:30 96 12/28/17 07:26 108 H 16 12/28/17 04:00 97.6 F 74 18 154/69 H 93 L 12/28/17 02:05 73 18 94 L Weight Weight 191 lb 6.4 oz I&O: 12/27/17 12/28/17 12/29/17 06:59 06:59 06:59 Intake Total 1260 1530 Output Total 2200 1925 Balance -940 -395 Result Diagrams: 12/27/17 16:19 12/27/17 16:19 Additional Labs: Accuchecks 12/28/17 12/28/17 12/27/17 11:01 05:39 20:50 POC Glucose 231 H 158 H 198 H 12/27/17 12/27/17 17:21 11:17 POC Glucose 179 H 175 H EKG Reviewed by me: Yes (nsr) Phys Exam - Physical Examination Constitutional: NAD HEENT: PERRLA, moist MMs, sclera anicteric Neck: no JVD, supple Respiratory: no wheezing, no rales, no rhonchi Cardiovascular: RRR, no significant murmur, no rub Gastrointestinal: soft, non-tender, no distention, positive bowel sounds Musculoskeletal: no edema, pulses present Neurological: non-focal, normal sensation, moves all 4 limbs Lymphatic: no nodes Psychiatric: normal affect Skin: no rash, normal turgor Dx/Plan (1) COPD exacerbation Code(s): J44.1 - CHRONIC OBSTRUCTIVE PULMONARY DISEASE W (ACUTE) EXACERBATION Status: Acute Comment: Continue oxygen, steroids, bronchodilators and antibiotics. (2) Chronic anticoagulation Code(s): Z79.01 - [facility] (CURRENT) USE OF ANTICOAGULANTS Status: Chronic (3) Chronic diastolic (congestive) heart failure Code(s): I50.32 - CHRONIC DIASTOLIC (CONGESTIVE) HEART FAILURE Status: Chronic (4) Chronic respiratory failure with hypoxia Code(s): J96.11 - CHRONIC RESPIRATORY FAILURE WITH HYPOXIA Status: Chronic (5) Coronary artery disease Code(s): I25.10 - ATHSCL HEART DISEASE OF [place] CORONARY ARTERY W/O ANG PCTRS Status: Chronic Comment: stable (6) Diabetes type 2, controlled Code(s): E11.9 - TYPE 2 DIABETES MELLITUS WITHOUT COMPLICATIONS Status: Chronic Comment: Bllod sugars elevated, likely due to steroids. Continue accuchecks, insulin sliding scale. (7) Dyslipidemia Code(s): E78.5 - HYPERLIPIDEMIA, UNSPECIFIED Status: Chronic Comment: continue statin (8) H/O: lung cancer Code(s): Z85.118 - PERSONAL HISTORY OF MALIGNANT NEOPLASM OF BRONCHUS AND LUNG Status: Chronic (9) Hypertension Code(s): I10 - ESSENTIAL (PRIMARY) HYPERTENSION Status: Chronic Comment: Monitor vital signs, titrate antihypertensives (BP low today) (10) Hypothyroidism Code(s): E03.9 - HYPOTHYROIDISM, UNSPECIFIED Status: Chronic Comment: continue thyroid replacement therapy (11) Obesity (BMI 30-39.9) Code(s): E66.9 - OBESITY, UNSPECIFIED Status: Chronic (12) Paroxysmal atrial fibrillation Code(s): I48.0 - PAROXYSMAL ATRIAL FIBRILLATION Status: Chronic Comment: continue anticoagulation (13) Rheumatoid arthritis Code(s): M06.9 - RHEUMATOID ARTHRITIS, UNSPECIFIED Status: Chronic - Plan cont current plan of care * medication reviewed as below * supportive treatment * await rehab placement * stable otherwise. Review of Systems - Review of Systems Eyes: negative: Pain, Vision Change, Conjunctivae Inflammation, Eyelid Inflammation, Redness, Other ENT: negative: Ear Pain, Ear Discharge, Nose Pain, Nose Discharge, Nose Congestion, Mouth Pain, Mouth Swelling, Throat Pain, Throat Swelling, Other Respiratory: negative: Cough, Dry, Shortness of Breath, Hemoptysis, SOB with Excertion, Pleuritic Pain, Sputum, Wheezing Cardiovascular: negative: chest pain, palpitations, orthopnea, paroxysmal nocturnal dyspnea, edema, light headedness, other Gastrointestinal: negative: Nausea, Vomiting, Abdominal Pain, Diarrhea, Constipation, Melena, Hematochezia, Other Genitourinary: negative: Dysuria, Frequency, Incontinence, Hematuria, Retention , Other Musculoskeletal: negative: Neck Pain, Shoulder Pain, Arm Pain, Back Pain, Hand Pain, Leg Pain, Foot Pain, Other Skin: negative: Rash, Lesions, Suleman, Bruising, Other - Medications/Allergies Allergies/Adverse Reactions: Allergies Allergy/AdvReac Type Severity Reaction Status Date / Time No Known Allergies Allergy Verified 08/23/17 22:43 Medications: Current Medications Acetaminophen (Tylenol) 650 mg PO Q4H PRN PRN Reason: Headache/Fever or Pain Last Admin: 12/27/17 20:07 Dose: 650 mg Hydrocodone Bitart/Acetaminophen ([place] 5/325) 1 tab PO Q4H PRN PRN Reason: Moderate Pain (4-6) Al Hydroxide/Mg Hydroxide (Maalox) 30 ml PO Q6H PRN PRN Reason: Heartburn or Indigestion Albuterol Sulfate (Proventil Hfa) 2 puff INH Q6HR PRN PRN Reason: SOB &/or Wheezing Albuterol/Ipratropium (Duoneb) 3 ml NEB [id number] [facility] Last Admin: 12/28/17 10:44 Dose: 3 ml Aspirin (Aspirin Chewable) 81 mg PO DAILY [facility] Last Admin: 12/28/17 09:13 Dose: 81 mg Benzonatate (Tessalon) 100 mg PO Q4H PRN PRN Reason: Cough Last Admin: 12/25/17 21:02 Dose: 100 mg Bisacodyl (Dulcolax) 10 mg PO DAILYPRN PRN PRN Reason: Constipation Last Admin: 12/27/17 21:17 Dose: 10 mg Clonidine (Catapres) 0.1 mg PO Q4H PRN PRN Reason: Systolic BP > 160 Last Admin: 12/26/17 11:49 Dose: 0.1 mg Dextrose/Water (Dextrose 50%) 25 gm SLOW IVP PRN PRN PRN Reason: Hypoglycemia Doxycycline Hyclate (Vibramycin) 100 mg PO BID [facility] Last Admin: 12/28/17 09:12 Dose: 100 mg Famotidine (Pepcid) 20 mg PO BID [facility] Last Admin: 12/28/17 09:14 Dose: 20 mg Furosemide (Lasix) 80 mg PO BID [facility] Last Admin: 12/28/17 09:14 Dose: 80 mg Glipizide (Glucotrol) 5 mg PO DAILY [facility] Last Admin: 12/28/17 09:13 Dose: 5 mg Glucagon (Glucagon) 1 mg IM PRN PRN PRN Reason: Hypoglycemia Guaifenesin (Robitussin Sf) 200 mg PO Q4H PRN PRN Reason: Cough Last Admin: 12/25/17 17:37 Dose: 200 mg Guaifenesin (Mucinex) 600 mg PO Q12HR [facility] Last Admin: 12/28/17 09:13 Dose: 600 mg Hydralazine HCl (Apresoline) 10 mg SLOW IVP Q4H PRN PRN Reason: Systolic BP > 170 Last Admin: 12/26/17 22:33 Dose: 10 mg Dextrose/Water (D5w) 1,000 mls @ 0 mls/hr IV .Q0M PRN PRN Reason: Hypoglycemia Insulin Human Lispro (Humalog) 0 units SC .AGGRESSIVE SLIDING PRN PRN Reason: Aggressive Correctional Scale Last Admin: 12/28/17 11:42 Dose: 6 unit Insulin Human Lispro (Humalog) 0 units SC .BEDTIME SLIDING SC PRN PRN Reason: Bedtime Correctional Scale Levothyroxine Sodium (Synthroid) 25 mcg PO 0600 [facility] Last Admin: 12/28/17 06:11 Dose: 25 mcg Lisinopril (Zestril) 20 mg PO BID [facility] Last Admin: 12/28/17 09:13 Dose: 20 mg Loratadine (Claritin) 10 mg PO DAILYPRN PRN PRN Reason: Sinus Symptoms Lorazepam (Ativan) 1 mg PO Q4H PRN PRN Reason: Anxiety/Agitation Last Admin: 12/25/17 21:02 Dose: 1 mg Mometasone Furoate/Formoterol Fumar (Dulera 200 Mcg/5 Mcg Inhaler) 2 puff INH BID-RT [facility] Last Admin: 12/28/17 07:41 Dose: 2 puff Montelukast Sodium (Singulair) 10 mg PO QPM [facility] Last Admin: 12/27/17 21:14 Dose: 10 mg Morphine Sulfate (Morphine) 2 mg SLOW IVP NOW [facility] Stop: 12/28/17 12:00 Last Admin: 12/28/17 10:41 Dose: 2 mg Nebivolol (Bystolic) 5 mg PO DAILY [facility] Last Admin: 12/28/17 09:12 Dose: 5 mg Nitroglycerin (Nitrostat) 0.4 mg SL Q5MIN PRN PRN Reason: Chest Pain Last Admin: 12/28/17 10:15 Dose: 0.4 mg Ondansetron HCl (Zofran) 4 mg IVP Q6H PRN PRN Reason: Nausea/Vomiting Prednisone (Prednisone) 40 mg PO QAM-WM [facility] Last Admin: 12/28/17 09:13 Dose: 40 mg Primidone (Mysoline) 250 mg PO TID [facility] Last Admin: 12/28/17 09:12 Dose: 250 mg Rivaroxaban (Xarelto) 20 mg PO 1700 [facility] Last Admin: 12/27/17 18:12 Dose: 20 mg Rosuvastatin Calcium (Crestor) 40 mg PO DAILY [facility] Last Admin: 12/28/17 09:12 Dose: 40 mg Senna (Senokot) 2 tab PO HSPRN PRN PRN Reason: Constipation Sodium Chloride (Flush - Normal Saline) 10 ml IVF Q12HR [facility] Last Admin: 12/28/17 09:14 Dose: 10 ml Sodium Chloride (Flush - Normal Saline) 10 ml IVF PRN PRN PRN Reason: Saline Flush Sulfasalazine (Azulfidine) 500 mg PO BID [facility] Last Admin: 12/28/17 09:13 Dose: 500 mg Tramadol HCl (Ultram) 50 mg PO Q4H PRN PRN Reason: Moderate Pain (4-6)
[2017-12-28 12:21] VITALS: BP 166/73; TEMP 98
--- NOTE | 2017-12-28 13:08 | DIS ---
DATE OF ADMISSION: 12/25/2017 DATE OF DISCHARGE: 12/28/2017 PRIMARY CARE PHYSICIAN: Melvin Chery MD DISCHARGE DISPOSITION: Rehabilitation. PRIMARY DISCHARGE DIAGNOSES: Chronic obstructive pulmonary disease/asthma exacerbation. SECONDARY DISCHARGE DIAGNOSES: Rheumatoid arthritis, paroxysmal atrial fibrillation, obesity with BMI 33, hypothyroidism, hypertension, history of lung cancer, dyslipidemia, diabetes type 2, coronary artery disease, chronic respiratory failure with hypoxia, chronic diastolic heart failure, chronic anticoagulation with Xarelto. PRIMARY PROCEDURE/OPERATION: None. RADIOLOGICAL INVESTIGATION: Chest x-ray, echocardiography. SIGNIFICANT LABORATORY DATA: WBC 11.1, hemoglobin 13.8, platelet 275. Creatinine 0.81. Troponin 0.085. Blood culture negative. DISCHARGE MEDICATIONS: Lasix 80 mg p.o. b.i.d., glipizide 5 mg p.o. daily, Synthroid 25 mcg p.o. daily, lisinopril 20 mg p.o. b.i.d., Bystolic 5 mg p.o. daily, [place] 250 mg p.o. t.i.d., Xarelto 20 mg p.o. daily, Crestor 40 mg p.o. daily, sulfasalazine 500 mg p.o. b.i.d., Proventil HFA 2 puffs q.6 hourly p.r.n., DuoNeb q.6 hourly, Mucinex 600 mg twice daily, aspirin 81 mg p.o. daily , doxycycline 100 mg p.o. b.i.d. for 5 days, Humalog as per sliding scale, Dulera 2 puffs inhalation b.i.d., Singulair 10 mg p.o. daily, prednisone 40 mg p.o. daily for 5 days. CONTRAINDICATIONS: None. CODE STATUS: FULL CODE. INPATIENT CONSULTANTS: Dr. Moran was following while in hospital. TEST RESULTS PENDING ON DISCHARGE: None. ALLERGIES: No known drug allergy. DISCHARGE PLAN: Post hospital, the patient is instructed to follow up with doctor in Dr. Moran and Dr. Mrii Charles as instructed. HOSPITAL COURSE: A 72-year-old female who was admitted by Dr. Tijerina, please see her H&P for further detail. This patient was recently admitted for asthma/ COPD exacerbation. The patient was discharged day before admission. She was feeling more shortness of breath and that is why she came back to ER and she was readmitted. Dr. Tijerina admitted this time. Pulmonary group was consulted. Dr. Moran saw this patient while in hospital. During this admission , echocardiography showed normal EF. The patient was treated with DuoNeb, Dulera, Mucinex, doxycycline and oral steroid. Initially, she was given IV steroid, but after that the patient was changed to oral medication by pulmonary group. We continued all her home medication while in hospital as well as upon discharge. Pulmonary cleared her for discharge. The patient and family member was concerned about discharging her home and that is why patient agreed to go to rehab. With help of field case manager, we are arranging his rehabilitation for her. She does have chronically elevated troponin. Pulmonary group cleared her for discharge. The patient is seen and examined at bedside today. She is asymptomatic and stable for discharge as well. The patient herself feels baseline. Paper work for discharge done. Discharge medication reconciliation done. Old record reviewed. Once we have rehabilitation arranged, this patient can be discharged to inpatient rehabilitation for more PT, OT. Total time spent to arrange this discharge on this day is 32 minutes. HAILE
--- NOTE | 2017-12-28 13:40 | PRG ---
DATE OF SERVICE: 12/28/2017 SERVICE: Pulmonary Medicine. INTERVAL HISTORY: The patient is doing fine from a respiratory standpoint. She denies any current c hest pain, nausea, vomiting, fevers, chills or shortness of breath. Otherwise, nursing reports that she had an episode of chest discomfort and shortness of breath this morning. EKG was performed which did not demonstrate any significant abnormalities. She ended up getting a couple of nitro which did not help, then she got some morphine. This helped with her discomfort. Currently, she is under the influence of the morphine. She is awake and alert and she is breathing comfortably. PHYSICAL EXAMINATION: VITAL SIGNS: Afebrile, pulse 97, blood pressure 166/73, respirations 16, saturation 93% on 2 liters nasal cannula. GENERAL: The patient is awake, alert, in no apparent distress. LUNGS: Excellent air entry. There is a mildly prolonged expiratory phase, but I do not appreciate a ny wheezing. Crackles are present bilaterally, but worse on the left. HEART: Normal rate, regular. ABDOMEN: Soft, nontender, nondistended. Bowel sounds are positive. MUSCULOSKELETAL: No cyanosis or clubbing. No pitting in the bilateral lower extremities. NEUROLOGIC: Grossly nonfocal. LABORATORY DATA: Troponin 0.085, which is down trending compared to prior. Blood sugars ranged from 158-231. Blood cultures x2 are unremarkable. IMAGING DATA: Echocardiogram demonstrates normal ejection fraction. Left atrium is mildly dilated. No significant valvular abnormalities are identified. ASSESSMENT: 1. Acute on chronic hypoxic respiratory failure. 2. Chronic obstructive pulmonary disease with acute exacerbation. 3. Anxiety disorder. DISCUSSION AND PLAN: The patient is doing fine from a respiratory standpoint. From my perspective, she can be considered for transition out of the hospital. Pulmonary will continue to follow while cyndi hanks remains in house.
[2017-12-28] MEDS: Rivaroxaban 10 MG TAB PO SCH (16:17)
--- NOTE | 2018-01-09 16:02 | EKG ---
Test Reason : Blood Pressure : / mmHG Vent. Rate : 103 BPM Atrial Rate : 103 BPM P-R Int : 122 ms QRS Dur : 078 ms QT Int : 348 ms P-R-T Axes : 079 015 032 degrees QTc Int : 455 ms Sinus tachycardia Otherwise normal ECG Confirmed by JANKI WADE, ANTHONY ([id number]), map editor RAVEN DAVISON ([id number]) on 01/09/2018 4:02:11 PM Referred By: Confirmed By:ANTHONY SHEARER MD
== END 2017-12-28 16:47 | DRG 189 ==
LOC: ERS 10:05 → 2NO 12:20
PROVIDERS: ADMIT Internal Medicine; ATTEND Internal Medicine
DX: J96.20 Acute and chronic respiratory failure, unspecified whether with hypoxia or hypercapnia (principal); I24.8 Other forms of acute ischemic heart disease; J44.1 Chronic obstructive pulmonary disease with (acute) exacerbation; I13.0 Hypertensive heart and chronic kidney disease with heart failure and stage 1 through stage 4 chronic kidney disease, or unspecified chronic kidney disease; I50.32 Chronic diastolic (congestive) heart failure; Z99.81 Dependence on supplemental oxygen; Z85.118 Personal history of other malignant neoplasm of bronchus and lung; I48.0 Paroxysmal atrial fibrillation; Z79.01 Long term (current) use of anticoagulants; E78.5 Hyperlipidemia, unspecified; E03.9 Hypothyroidism, unspecified; Z87.891 Personal history of nicotine dependence; Z79.52 Long term (current) use of systemic steroids; E66.9 Obesity, unspecified; Z68.34 Body mass index [BMI] 34.0-34.9, adult; E11.22 Type 2 diabetes mellitus with diabetic chronic kidney disease; N18.9 Chronic kidney disease, unspecified; D72.829 Elevated white blood cell count, unspecified; F41.9 Anxiety disorder, unspecified; J40 Bronchitis, not specified as acute or chronic; M06.9 Rheumatoid arthritis, unspecified
CPT/HCPCS: 36415; 36416; 71045; 80048; 80053; 82553; 82565; 83880; 84484; 85014; 85018; 85025; 85049; 87040; 93005; 93010; 93306; 94640; 94644; A4216; G8978-GP-CK; G8979-GP-CI; G8987-GO-CJ; G8988-GO-CI; J0360; J0692; J2270; J2920; J3475; J7050; J7506; J7620